=== PATIENT | male | born 1940 | race Caucasian/White ===

== ENCOUNTER 2018-08-13 12:23 | Emergency (ER) | payer MEDICARE, OTHER ==
[~2018-08-13] VITALS: Ht 188 cm; Wt 69.4 kg
[2018-08-13] MEDS ORDERED: LIDOCAINE JELLY 2% 10ML URO-JET TOP ONE (13:00)
[2018-08-13 13:35] LABS: COLOR,URINE YELLOW (YELLOW)
[2018-08-13 13:36] LABS: BILIRUBIN,URINE NEGATIVE (NEGATIVE); CLARITY,URINE SL CLOUDY (CLEAR); KETONES,URINE TRACE (NEGATIVE); LEUKOCYTE ESTERASE ,URINE NEGATIVE (NEGATIVE); NITRITE,URINE NEGATIVE (NEGATIVE); PROTEIN,URINE DIPSTICK 1+ (NEGATIVE); URINE UROBILINOGEN 0.2 mg/dL (0.2 - 1)
[2018-08-13 13:37] LABS: RBC,URINE 21-50 /HPF (0-5)
[2018-08-13 13:38] LABS: EPITHELIAL CELLS,URINE RARE /LPF
--- NOTE | 2018-08-13 14:35 | NUR ---
URINARY CATHETER BAG CHANGED TO LEG BAG. PATIENT INSTRUCTED ON CHANGING CATHETER BAGS. LARGE DRAINAGE BAG PROVIDED FOR NIGHT TIME DRAINAGE WHILE ASLEEP. PT AND SON VERBALIZED UNDERSTANDING.
[2018-08-13 14:45] VITALS: BP 119/83
== END 2018-08-13 14:48 | disposition home or self-care (01) ==
LOC: ER 12:23
DX: R33.9 Retention of urine, unspecified (principal); N40.1 Benign prostatic hyperplasia with lower urinary tract symptoms; I10 Essential (primary) hypertension
CPT/HCPCS: 51700; 51798; 81001; 87086; 99283

== ENCOUNTER 2018-09-05 03:03 | Emergency (ER) | payer MEDICARE, OTHER ==
[~2018-09-05] VITALS: Ht 188 cm; Wt 69.4 kg
[2018-09-05] MEDS ORDERED: LIDOCAINE JELLY 2% 10ML URO-JET TOP ONE (03:15)
[2018-09-05 04:25] LABS: BILIRUBIN,URINE NEGATIVE (NEGATIVE); CLARITY,URINE CLEAR (CLEAR); COLOR,URINE YELLOW (YELLOW); KETONES,URINE NEGATIVE (NEGATIVE); LEUKOCYTE ESTERASE ,URINE NEGATIVE (NEGATIVE); NITRITE,URINE NEGATIVE (NEGATIVE); PROTEIN,URINE DIPSTICK NEGATIVE (NEGATIVE); URINE UROBILINOGEN 0.2 mg/dL (0.2 - 1)
[2018-09-05 05:05] VITALS: BP 119/82
[2018-09-05 05:23] LABS: BACTERIA,URINE RARE /HPF; EPITHELIAL CELLS,URINE RARE /LPF; RBC,URINE >50 /HPF (0-5)
== END 2018-09-05 05:16 | disposition home or self-care (01) ==
LOC: ER 03:03
DX: R33.9 Retention of urine, unspecified (principal); N40.1 Benign prostatic hyperplasia with lower urinary tract symptoms; I10 Essential (primary) hypertension; J44.9 Chronic obstructive pulmonary disease, unspecified; N18.9 Chronic kidney disease, unspecified
CPT/HCPCS: 51700; 81001; 87086; 99282

== ENCOUNTER 2019-04-01 06:28 | Observation (INO) | payer MEDICARE, OTHER ==
[2019-03-25 10:49] LABS: BASOPHILS # (AUTO) 0.1 (0.0-0.1); BASOPHILS % 0.3 % (0.0-1.0); EOSINOPHILS # (AUTO) 0.1 (0.0-0.4); EOSINOPHILS % 0.5 % (0.0-6.0); HEMATOCRIT 41.7 % (38.2-49.6); HEMOGLOBIN 13.4 g/dL (14.0-18.0); LYMPHOCYTES # (AUTO) 15.7 (1.0-3.2); LYMPHOCYTES % 68.1 % (18.0-39.1); MEAN CORPUSCULAR HEMOGLOBIN 28.2 pg (28-32); MEAN CORPUSCULAR HGB CONC 32.1 g/dL (31-35); MEAN CORPUSCULAR VOLUME 87.6 fL (81-99); MONOCYTES # (AUTO) 1.1 (0.2-0.8); MONOCYTES % 4.7 % (4.4-11.3); NEUTROPHILS # (AUTO) 6.1 (2.1-6.9); NEUTROPHILS % 26.1 % (38.7-80.0); PLATELET COUNT 177 x10e3/uL (140-360); RED BLOOD COUNT 4.76 x10e6/uL (4.3-5.7); RED CELL DISTRIBUTION WIDTH 14.8 % (11.7-14.4)
[2019-03-25 11:06] LABS: ALANINE AMINOTRANSFERASE 7 IU/L (0-55); ALBUMIN 3.6 g/dL (3.5-5.0); ALBUMIN/GLOBULIN RATIO 1.6 (0.8-2.0); ALKALINE PHOSPHATASE 53 IU/L (40-150); ANION GAP 8.1 mmol/L (8-16); BLOOD UREA NITROGEN 21 mg/dL (7-26); BUN/CREATININE RATIO 22 (6-25); CALCIUM 9.3 mg/dL (8.4-10.2); CARBON DIOXIDE 30 mmol/L (22-29); CHLORIDE 96 mmol/L (98-107); CREATININE, SERUM 0.94 mg/dL (0.72-1.25); EST GLOMERULAR FILTRATION RATE > 60 ML/MIN (60-); GLUCOSE 90 mg/dL (74-118); POTASSIUM 4.1 mmol/L (3.5-5.1); SODIUM 130 mmol/L (136-145)
[2019-03-25 11:34] LABS: LYMPHOCYTES % (MANUAL) 64 % (19-48); MONOCYTES % (MANUAL) 6 % (3.4-9.0); NEUTROPHILS % (MANUAL) 21 % (40-74)
[2019-03-25 11:35] LABS: PLATELET ESTIMATE ADEQUATE; PLATELET MORPHOLOGY COMMENT NORMAL; RBC MORPHOLOGY COMMENT NORMAL; SMUDGE CELLS FEW
--- NOTE | 2019-03-25 12:55 | Diagnostic Imaging Report ---
Exam: PA and lateral chest radiograph Clinical history: Preoperative clearance Findings: There is mild cardiomegaly. There is no evidence of pulmonary consolidation, pleural effusion, or pneumothorax. Wedge deformities are noted in multiple thoracic vertebral bodies consistent with compression fractures, age indeterminant. Postoperative changes are also noted in one of the upper lumbar vertebral body consistent with prior vertebral augmentation. Impression: 1. Mild cardiomegaly. Signed by: Dr. Quintin Luna MD on 03/25/2019 12:52 PM
[~2019-04-01] VITALS: Ht 185.4 cm; Wt 67.4 kg
[~2019-04-01 06:28] MED LIST: AMLODIPINE BESYL5 MG PO; LEVOTHYROXINE50 MCG PO; LOSARTAN POTAS100 MG PO; METOPROLOL SUCC50 MG PO
[2019-04-01] MEDS ORDERED: CEFAZOLIN SOD 1 GM/NS 50ML 100 ML IV ONE (06:47)
[2019-04-01] MEDS ORDERED: B&O 60MG R/S 60 MG SUPP PR ONE (06:55)
--- OUTSIDE RECORDS SUMMARY | 2019-04-01 07:03 | XMS REPORT ---
Author Author [facility] Address Unknown Phone Unavailable Care Team Providers Care International Sales Manager Name Role Phone GATO MARTIN Unavailable Unavailable Problems This patient has no known problems. Allergies, Adverse Reactions, Alerts This patient has no known allergies or adverse reactions. Medications This patient has no known medications. Results Test Description Test Time Test Comments Text Results Atomic Results Result Comments CHEST 2 VIEWS 2019-03-25 12:51:00 [facility] [address] [address] Patient Name: ZENAIDA CROW MR #: [id number] : 1940 Age/Sex: 78/M Req #: [id number] [facility] Physician: Ordered by: GATO MARTIN MD Report #: [id number] Location: OR Room/Bed: Procedure: [id number] DX/CHEST 2 VIEWS Exam Date: Exam Time: REPORT STATUS: Signed Exam: PA and lateral chest radiograph Clinical history: Preoperative clearance Findings: There is mild cardiomegaly. There is no evidence of pulmonary consolidation, pleural effusion, or pneumothorax. Wedge deformities are noted in multiple thoracic vertebral bodies consistent with compression fractures, age indeterminant. Postoperative changes are also noted in one of the upper lumbar vertebral body consistent with prior vertebral augmentation. Impression: 1. Mild cardiomegaly. Signed by: Dr. Quintin Lion MD on 03/25/2019 12:52 PM Dictated By: CORNELIUS LION MD 125 Transcribed By: TYRONE on 03/25/191251 COPY TO: GATO MARTIN MD
[2019-04-01] MEDS ORDERED: HYDRALAZINE HCL 20 MG/ML VIAL ONE (09:54)
[2019-04-01] MEDS ORDERED: ONDANSETRON HCL INJ 2MG/ML 2ML 2 MG/ML VIAL ONE ×2 (11:06→18:31)
[2019-04-01 12:00] VITALS: BP_SYST 131; BP_SYST 133; BP_DIAS 60; BP_DIAS 91
[2019-04-01] MEDS ORDERED: METOPROLOL TARTRATE 25 MG TAB PO PRN (12:00)
--- NOTE | 2019-04-01 12:00 | NUR ---
PT RESTING IN BE AA0X3 PT STATES PAIN TO PENILE AREA IS TOLERABLE AT A 2/10 NOW PT IS ON IV FLUIDS TO THE RIGHT AC 20 G WITH LR RUNNING SITE IS CLEAN AND DRY ROB CATH IS DRAINING CLEAR YELLOW URINE WILL CONTINUE TO MONITOR PT CLOSELY SIDE RAILSX2 ,BED WHEELS LOCKED, CALL LIGHT IS WITHIN EASY REACH INSTRUCTED TO CALL FOR ASSISTANCE IF NEEDED
[2019-04-01] MEDS ORDERED: ONDANSETRON HCL INJ 2MG/ML 2ML 2 MG/ML VIAL IV PRN (12:15)
[2019-04-01] MEDS ORDERED: TRAMADOL HCL 50 MG TAB PO PRN ×2 (12:15)
[2019-04-01] MEDS ORDERED: B&O 60MG R/S 60 MG SUPP PR PRN (12:15)
[2019-04-01 12:32] VITALS: BP 131/91
[2019-04-01] MEDS: DEXTROSE 5%/0.9% SOD CHL 1,000 ML IV SCH ×2 (12:53→22:02)
[2019-04-01 15:59] VITALS: BP 112/73
[2019-04-01] MEDS ORDERED: PHENYLEPHRINE HCL 1% 10 MG/ML VIAL ONE (16:34)
[2019-04-01] MEDS: AMOXICILLIN/CLAVULANATE K 250 MG TAB PO SCH (17:17)
[2019-04-01] MEDS ORDERED: PROPOFOL IV EMULSION 10 MG/ML 20 ML VIAL ONE (18:31)
[2019-04-01] MEDS ORDERED: SEVOFLURANE INHAL SOLN 250 ML PEN BTL ONE (18:31)
[2019-04-01] MEDS ORDERED: GLYCOPYRROLATE INJ 1MG/ 5 ML SYR ONE (18:31)
[2019-04-01] MEDS ORDERED: DEXAMETHASONE SOD PHOS INJ 4 MG/ML VIAL ONE (18:31)
[2019-04-01] MEDS ORDERED: LIDOCAINE HCL 2% LOCAL INJ 5 ML SDV VIAL INJ ONE (18:31)
[2019-04-01] MEDS ORDERED: FENTANYL CITRATE/PF 100MCG/2 ML INJ ONE (18:55)
--- NOTE | 2019-04-01 20:10 | NUR ---
Zuniga care given.bed locked and in lowest position.phone and call light within reach.instructed to call for assistance as needed.
[2019-04-01 20:27] VITALS: BP 110/70
[2019-04-01 21:01] VITALS: BP 110/70
--- NOTE | 2019-04-01 23:23 | Operative Report ---
DATE OF PROCEDURE: 04/01/2019 SURGEON: Troy Long MD PREOPERATIVE DIAGNOSIS: Acute and chronic urinary retention. POSTOPERATIVE DIAGNOSIS: Acute and chronic urinary retention. OPERATION PERFORMED: Cystoscopy and transurethral resection of the prostate. Plasma button vaporization of the prostate. ANESTHESIOLOGIST: Staff. ANESTHESIA: General. FINDINGS: The patient has a very large prostate with 100% obstruction. The patient has a Zuniga catheter indwelling that has cut through the meatus. Severe trabeculation of the bladder with cellules and saccules is seen. Large intravesical component of the prostate. PROCEDURE IN DETAIL: With the patient under satisfactory general anesthesia, the patient was placed in the supine position on the operating table. Legs were placed on stirrups. Genitalia was then prepped with pHisoHex solution and draped in usual manner. A time-out was obtained, everybody agree with the procedure as planned. I checked the wrist band of the patient personally. At this point, the 22-Israeli cystourethroscope was passed per urethra into the bladder and inspection was performed. Findings are dictated above. The cystoscope was then removed from the bladder and replaced by the continuous flow resectoscope made by [employer]. Bipolar energy was used as well as the plasma button. The loop electrode was used first. First, the tissue removed was the intravesical component. Quite a bit of bleeding was noted from a large vascular blood vessels at the bladder neck. I would change from the loop to the button electrode to plasma evaporate and plasma fulgurate at this area. I switched back to the loop electrode and I continued to resect from the bladder neck to mid prostate. The left lobe was done first followed by the right lobe partially and then the middle lobe and the posterior lobe were then excised using the loop electrode. Again at this point, there was quite a bit of bleeding. Therefore, the plasma button electrode was used next to again coagulate and obtain hemostasis to improve visualization of the surgical field. Again, I switched back to the loop electrode and continue to resect the apical tissue. At this point, quite a bit of stones were noted to be coming off the prostate as well as what appeared to be prostatic fluid and thick secretions. I went back to the posterior lobe and resected some more tissue using the Combined Effort evacuator to remove the chips that had cut. At that point, I switched back to the plasma button and plasma evaporated the remaining tissue, evening out the tissue as well as obtaining hemostasis. Ellik evacuator was used again and at this point I checked inside the bladder. There was no tissue inside the bladder and both ureteral orifices were in normal position and easily seen as well as the bladder neck not bleeding. At this point, after checking, there was no tissue left in the prostatic fossa. Instruments were removed and a 22-Israeli Zuniga catheter was passed per urethra into the bladder and the balloon was inflated to 30 mL and irrigation was done with a Mira syringe until the return was clear. At this point, the Zuniga catheter was left indwelling to a bag. A 30 mg B and O suppository was placed in the rectum and the patient was taken to the recovery room in satisfactory condition. DISCHARGE INSTRUCTIONS: I kept the patient overnight in the hospital. If the next day the patient met discharge criteria, he was sent home on Keflex and Talwin NX for pain. The patient will then come back to the office on Friday to remove the Zuniga and give him a voiding trial. Total estimated tissue removed was between 45 and 50 g. I had previously discussed with the patient that I did not know if he would be able to urinate afterwards or not or whether he was going to have severe urgency and incontinence or not, but since the tube had already cut through the meatus by pressure, I felt that it was necessary to see if we could get rid of the catheter. The patient and I had discussed that before surgery and he understood it. I discussed also the same thing with the son and explained what to expect. The patient was discharged the next morning if he met discharge criteria. I had to ask for a consultation with Dr. Monteiro, who is a tongue and quarter stitcher that he has seen him. Preoperatively, the patient had some atrial fibrillation and Dr. Monteiro started him on medication postoperatively. If the patient needed to stay an extra night, a separate dictation will be made to explain the reason why the patient had to stay an extra night in the hospital. Thank you very much. MD SHAMIR BrumfieldG/MODL /[id number]
[2019-04-02 00:39] VITALS: BP 110/65
--- NOTE | 2019-04-02 01:18 | NUR ---
Patient is resting in the bed.mild blood colored urine draining.hall catheter irrigated manually.no blood clots occured.tolerated well.
[2019-04-02 04:11] VITALS: BP 104/56
[2019-04-02] MEDS: DEXTROSE 5%/0.9% SOD CHL 1,000 ML IV SCH (04:32)
[2019-04-02] MEDS ORDERED: LEVOTHYROXINE SODIUM 112 MCG TAB PO SCH (06:00)
[2019-04-02] MEDS ORDERED: LEVOTHYROXINE SODIUM 25 MCG TABLET PO SCH (06:00)
--- NOTE | 2019-04-02 06:00 | NUR ---
Manuel Garcia colored urine draining.no clots noted.stable condition.
[2019-04-02 06:25] LABS: BASOPHILS % 0.2 % (0.0-1.0); EOSINOPHILS # (AUTO) 0.1 (0.0-0.4); EOSINOPHILS % 0.3 % (0.0-6.0); HEMATOCRIT 37.4 % (38.2-49.6); LYMPHOCYTES # (AUTO) 10.8 (1.0-3.2); LYMPHOCYTES % 49.9 % (18.0-39.1); MEAN CORPUSCULAR HEMOGLOBIN 28.6 pg (28-32); MEAN CORPUSCULAR HGB CONC 32.1 g/dL (31-35); MEAN CORPUSCULAR VOLUME 89.3 fL (81-99); MONOCYTES # (AUTO) 2.4 (0.2-0.8); MONOCYTES % 11.3 % (4.4-11.3); NEUTROPHILS # (AUTO) 8.2 (2.1-6.9); NEUTROPHILS % 37.8 % (38.7-80.0); PLATELET COUNT 159 x10e3/uL (140-360); RED BLOOD COUNT 4.19 x10e6/uL (4.3-5.7); RED CELL DISTRIBUTION WIDTH 14.8 % (11.7-14.4)
[2019-04-02 06:46] LABS: INR 1.05; PROTHROMBIN TIME 14.2 seconds (11.9-14.5)
--- NOTE | 2019-04-02 06:50 | NUR ---
Bed side shift report given to the oncoming Rn.stable condition.
[2019-04-02 06:59] LABS: LYMPHOCYTES % (MANUAL) 48 % (19-48); MONOCYTES % (MANUAL) 12 % (3.4-9.0); NEUTROPHILS % (MANUAL) 40 % (40-74)
[2019-04-02 07:00] LABS: ALANINE AMINOTRANSFERASE 8 IU/L (0-55); ALBUMIN 2.9 g/dL (3.5-5.0); ALBUMIN/GLOBULIN RATIO 1.7 (0.8-2.0); ALKALINE PHOSPHATASE 46 IU/L (40-150); ANION GAP 11.1 mmol/L (8-16); BLOOD UREA NITROGEN 15 mg/dL (7-26); BUN/CREATININE RATIO 19 (6-25); CALCIUM 8.3 mg/dL (8.4-10.2); CARBON DIOXIDE 28 mmol/L (22-29); CHLORIDE 100 mmol/L (98-107); CREATININE, SERUM 0.78 mg/dL (0.72-1.25); EST GLOMERULAR FILTRATION RATE > 60 ML/MIN (60-); GLUCOSE 136 mg/dL (74-118); PLATELET ESTIMATE MODERATELY DECREASED; PLATELET MORPHOLOGY COMMENT FEW GIANT; POTASSIUM 4.1 mmol/L (3.5-5.1); RBC MORPHOLOGY COMMENT NORMAL; SODIUM 135 mmol/L (136-145)
--- NOTE | 2019-04-02 07:05 | NUR ---
Received patient lying in bed with eyes closed. Respiration even and unlabored without SOB. call light in reach.
[2019-04-02 07:11] LABS: THYROID STIMULATING HORMONE 0.661 uIU/mL (0.350-4.940)
[2019-04-02 08:04] VITALS: BP 93/63
[2019-04-02] MEDS: AMOXICILLIN/CLAVULANATE K 250 MG TAB PO SCH (08:31)
[2019-04-02] MEDS ORDERED: AMLODIPINE BESYLATE 5 MG TAB PO SCH (09:00)
[2019-04-02] MEDS ORDERED: LOSARTAN POTASSIUM 100 MG TAB PO SCH (09:00)
[2019-04-02] MEDS ORDERED: METOPROLOL SUCCINATE 50 MG TAB XL PO SCH (09:00)
[2019-04-02 09:18] VITALS: BP 93/63
[2019-04-02] MEDS ORDERED: METOPROLOL TARTRATE 25 MG TAB PO SCH (09:45)
--- NOTE | 2019-04-02 10:00 | NUR ---
Patient is to be discharged to home today. 20g PIV to right AC discontinue, catheter intact, no bleeding noted. Patient waiting for her son to pick him up.
[2019-04-02] MEDS ORDERED: KEFLEX250 MG PO (10:01)
[2019-04-02] MEDS ORDERED: PENTAZOCINE-NA1 EACH PO (10:04)
--- NOTE | 2019-04-02 10:25 | NUR ---
Patient is transported via wheelchair for discharge. Respiration even and unlabored without SOB.
--- NOTE | 2019-04-02 15:13 | Consultation ---
DATE OF CONSULTATION: 04/01/2019 Cardiac Consultation HISTORY OF PRESENT ILLNESS: This is a 78-year-old gentleman, who is very well known to our service. He is known to have chronic atrial fibrillation, hypertension, and hypothyroidism. He was seen and evaluated in our office on March 16, 2019, for cardiac clearance for his prostate surgery. The patient was given clearance. Regarding his atrial fibrillation, the patient never was on anticoagulation before. He is hypertensive. He had an echocardiogram, which showed preserved left ventricular systolic function. As I mentioned, the patient was cleared for surgery. He had successful TURP by Dr. Long. He is in recovery area. Cardiac consultation is obtained to manage his medication and his atrial fibrillation. The patient is currently feeling well. He is having just a little bit of throat discomfort and he is having discomfort from the Zuniga. He denied having any angina, any orthopnea, any paroxysmal nocturnal dyspnea, any syncope or presyncope. REVIEW OF SYSTEMS: To all systems will be summarized for clarity. GENERAL: No fever. No chills. HEENT: Remarkable for a little bit decreased hearing. PULMONARY: Moderate shortness of breath on exertion. CARDIAC: Chronic atrial fibrillation. No syncope or presyncope. Occasional palpitation. Easy fatigability. GI: No hematemesis. No melena. HEMATOLOGY: No easy bruising or bleeding. : Increased frequency of urination. MUSCULOSKELETAL: No back pain. No knee pain. Peripheral vascular, no claudication. SKIN: No rashes. NEUROLOGICAL: No WAX ROOM SUPERVISOR symptoms. No seizure. No headache. SOCIAL HISTORY: He is former smoker, quit in 2012. He is social alcohol drinker. He is retired. He is . HOME MEDICATIONS: Metoprolol succinate 50 mg a day, losartan 100 mg a day, amlodipine 5 mg a day, levothyroxine 137 mcg a day, and Myrbetriq 25 mg a day. ALLERGIES: CODEINE. PAST MEDICAL HISTORY: 1. Hypertension. 2. Hypothyroidism. 3. Prostate problem. 4. Lipoma. 5. Low back surgery. 6. Removal of cyst from the left knee. 7. Atrial fibrillation. FAMILY HISTORY: Mother of stroke at age 83. Father at age 85 after hip surgery. He lost one of his 2 brothers to lung disease. No sisters. One son with lupus. PHYSICAL EXAMINATION: VITAL SIGNS: Height 6 feet 1 inch, weight of 150 pounds, blood pressure currently 100/70, heart rate of 100, irregularly irregular of atrial fibrillation, and respiratory rate of 20. HEENT: Pupils are reactive. NECK: No elevation of jugular venous pulsation. CHEST: Decreased air entry in bases. HEART: Irregularly irregular rate of atrial fibrillation. PMI 5th left intercostal space. Normal first and second heart sound. ABDOMEN: Soft with good bowel sounds. Zuniga catheter in place. EXTREMITIES: No cyanosis. No clubbing. No edema. NEUROLOGIC: Awake, alert, and oriented. Able to move all extremities. LABORATORY DATA: As per chart. EKG showing atrial fibrillation. IMPRESSION AND PLAN: 1. Status post transurethral resection of the prostate. The patient tolerated surgery, hemodynamically relatively stable. Blood pressure on lower side. We will resume his home medication of blood pressure with precaution and with parameters since the patient had surgery. Most important is to give beta-ness to control the heart rate. 2. Regarding his hypertension, as described above. 3. Regarding his atrial fibrillation, beta-ness for the time being. The patient will be placed on anticoagulation after resolution of his surgery and stopping hematuria from the surgery. Case discussed and explained. We will follow the patient's progression with you and would like to thank you for your kind referral. MD JOE Vazquez/MODL /[id number]
== END 2019-04-02 10:25 | disposition home or self-care (01) ==
LOC: OR 06:28 → PACU V 09:44 → MED/SURG 12:08
PROVIDERS: ADMIT Urology; ATTEND Urology
DX: N40.1 Benign prostatic hyperplasia with lower urinary tract symptoms (principal); N13.8 Other obstructive and reflux uropathy; R33.8 Other retention of urine; I48.2 Chronic atrial fibrillation; I11.9 Hypertensive heart disease without heart failure; E03.9 Hypothyroidism, unspecified; Z82.3 Family history of stroke; Z82.5 Family history of asthma and other chronic lower respiratory diseases; Z84.89 Family history of other specified conditions; M48.54XA Collapsed vertebra, not elsewhere classified, thoracic region, initial encounter for fracture; Z86.010 Personal history of colon polyps; N32.89 Other specified disorders of bladder; Z88.5 Allergy status to narcotic agent
CPT/HCPCS: 36415 ×2; 52601; 71046; 80053 ×2; 84443; 85025 ×2; 85610; 87086; 87186; 88305; 93005; G0378 ×2; J0360; J0690; J1100; J2001; J2405; J2704; J3010; J3490; J7042 ×2; J2370

== ENCOUNTER 2019-06-23 11:17 | Inpatient (IN) | payer MEDICARE, OTHER ==
[~2019-06-23] VITALS: Ht 185.4 cm; Wt 65.5 kg
[~2019-06-23 11:17] MED LIST changes: +KEFLEX250 MG PO; +PENTAZOCINE-NA1 EACH PO
[2019-06-23] MEDS ORDERED: IPRATROPIUM BROMIDE 0.02% 2.5 ML NEB NEB STA (11:37)
[2019-06-23] MEDS ORDERED: METHYLPREDNISOLONE SOD SUCC 125 MG/2ML VIAL IV STA (11:37)
[2019-06-23] MEDS ORDERED: ALBUTEROL SULF 0.083% NEB SOLN 3 ML NEB NEB STA (11:37)
[2019-06-23] MEDS ORDERED: AZITHROMYCIN 500MG/NS 250 ML 250 ML IV ONE (12:00)
[2019-06-23] MEDS ORDERED: CEFTRIAXONE SOD 1 GM/NS 50 ML 50 ML IV ONE (12:00)
[2019-06-23 12:26] LABS: BASOPHILS # (AUTO) 0.1 (0.0-0.1); BASOPHILS % 0.2 % (0.0-1.0); EOSINOPHILS % 0.2 % (0.0-6.0); HEMATOCRIT 41.2 % (38.2-49.6); HEMOGLOBIN 13.3 g/dL (14.0-18.0); LYMPHOCYTES # (AUTO) 12.4 (1.0-3.2); LYMPHOCYTES % 59.9 % (18.0-39.1); MEAN CORPUSCULAR HEMOGLOBIN 27.5 pg (28-32); MEAN CORPUSCULAR HGB CONC 32.3 g/dL (31-35); MEAN CORPUSCULAR VOLUME 85.1 fL (81-99); MONOCYTES # (AUTO) 1.5 (0.2-0.8); MONOCYTES % 7.4 % (4.4-11.3); NEUTROPHILS # (AUTO) 6.6 (2.1-6.9); NEUTROPHILS % 31.8 % (38.7-80.0); PLATELET COUNT 211 x10e3/uL (140-360); RED BLOOD COUNT 4.84 x10e6/uL (4.3-5.7); RED CELL DISTRIBUTION WIDTH 15.3 % (11.7-14.4)
[2019-06-23 12:29] LABS: BILIRUBIN,URINE NEGATIVE (NEGATIVE); CLARITY,URINE CLEAR (CLEAR); COLOR,URINE YELLOW (YELLOW); KETONES,URINE NEGATIVE (NEGATIVE); LEUKOCYTE ESTERASE ,URINE TRACE (NEGATIVE); NITRITE,URINE NEGATIVE (NEGATIVE); PROTEIN,URINE DIPSTICK 1+ (NEGATIVE); URINE UROBILINOGEN 2 mg/dL (0.2 - 1)
[2019-06-23 12:39] LABS: INR 1.02; PROTHROMBIN TIME 13.9 seconds (11.9-14.5)
[2019-06-23 12:40] LABS: PARTIAL THROMBOPLASTIN TIME 29.2 seconds (23.8-35.5)
[2019-06-23 12:49] LABS: ALANINE AMINOTRANSFERASE 17 IU/L (0-55); ALBUMIN 3.6 g/dL (3.5-5.0); ALBUMIN/GLOBULIN RATIO 1.3 (0.8-2.0); ALKALINE PHOSPHATASE 60 IU/L (40-150); ANION GAP 12.1 mmol/L (8-16); BLOOD UREA NITROGEN 17 mg/dL (7-26); BUN/CREATININE RATIO 21 (6-25); CALCIUM 9.3 mg/dL (8.4-10.2); CARBON DIOXIDE 28 mmol/L (22-29); CHLORIDE 101 mmol/L (98-107); CREATINE KINASE 31 IU/L (30-200); CREATININE, SERUM 0.81 mg/dL (0.72-1.25); EST GLOMERULAR FILTRATION RATE > 60 ML/MIN (60-); GLUCOSE 121 mg/dL (74-118); POTASSIUM 4.1 mmol/L (3.5-5.1); SODIUM 137 mmol/L (136-145)
[2019-06-23 12:51] LABS: LYMPHOCYTES % (MANUAL) 46 % (19-48); MONOCYTES % (MANUAL) 10 % (3.4-9.0); NEUTROPHILS % (MANUAL) 36 % (40-74)
[2019-06-23 12:52] LABS: PLATELET ESTIMATE ADEQUATE; PLATELET MORPHOLOGY COMMENT NORMAL; RBC MORPHOLOGY COMMENT NORMAL
[2019-06-23 12:53] LABS: B-TYPE NATRIURETIC PEPTIDE2 322.1 pg/mL (0-100)
[2019-06-23 13:00] LABS: AMORPHOUS SEDIMENT,URINE FEW (FEW); BACTERIA,URINE MANY /HPF; EPITHELIAL CELLS,URINE MODERATE /LPF; MUCUS,URINE FEW (RARE); WBC,URINE (MAN) 21-50 /HPF (0-5)
--- NOTE | 2019-06-23 13:09 | Diagnostic Imaging Report ---
Exam: Chest one view Comparison: March 25, 2019 Clinical history: Shortness of breath, weakness Findings: There is persistent cardiomegaly. Increased bibasilar pulmonary opacities are noted which may represent atelectasis versus early consolidation. Minimal blunting of bilateral costophrenic sulci are also noted, this can represent small pleural effusions. There is no evidence of pneumothorax. The regional osseous structures are unchanged. Signed by: Dr. Quintin Luna MD on 06/23/2019 1:06 PM
[2019-06-23] MEDS: ALBUTEROL SULF 0.083% NEB SOLN 3 ML NEB NEB SCH ×3 (14:04→20:15)
[2019-06-23] MEDS ORDERED: SODIUM CHLORIDE FLUSH 10 ML SYR INJ PRN (14:45)
[2019-06-23] MEDS ORDERED: ASPIRIN 81 MG CHEW TAB PO ONE (14:45)
[2019-06-23] MEDS ORDERED: AZITHROMYCIN 500MG/SOD CHL 0.9% 250ML BAG IV SCH (14:45)
[2019-06-23 16:37] VITALS: BP 163/103
[2019-06-23 16:58] VITALS: BP 163/103
[2019-06-23 17:00] VITALS: BP 163/103
[2019-06-23] MEDS: ENOXAPARIN SOD INJ 40 MG/0.4 ML SYR SC SCH (17:00)
--- NOTE | 2019-06-23 17:00 | NUR ---
RECEIVED PATIENT FROM ER TO ROOM 291, HE IS IN STABLE CONDITION. ORIENTED TO ROOM AND POLICIES. ADMISSION HISTORY AND PHYSICAL ASSESSMENT DONE. CALL LIGHT WITHIN REACH. BED IN THE LOWEST POSITION.
--- NOTE | 2019-06-23 17:15 | NUR ---
HEEL PROTECTORS PROVIDED TO PATIENT.
[2019-06-23] MEDS ORDERED: LOSARTAN POTAS100 MG PO (17:16)
[2019-06-23] MEDS ORDERED: AMLODIPINE BESYL5 MG PO (17:16)
--- NOTE | 2019-06-23 19:33 | NUR ---
BEDSIDE SHIFT REPORT GIVEN TO ONCOMING NURSE. PATIENT IS RESTING IN BED. NO ACUTE DISTRESS NOTED. CALL LIGHT WITHIN REACH. BED IN THE LOWEST POSITION.
[2019-06-23 20:00] VITALS: BP 123/78
[2019-06-23] MEDS: IPRATROPIUM BROMIDE 0.02% 2.5 ML NEB NEB SCH (20:15)
[2019-06-23 20:17] LABS: CREATINE KINASE 21 IU/L (30-200)
--- NOTE | 2019-06-23 20:26 | NUR ---
RECEIVED PT IN BED AOX3 .RESPIRATIONS ARE EVEN AND UNLABORED ..CALL LIGHT WITH IN REACH .CONTINUE TO MONITOR
[2019-06-23] MEDS ORDERED: CEFTRIAXONE SOD 1 GRAM/0.9% SOD CHL 50ML BAG IV SCH (21:00)
[2019-06-24] VITALS (8 sets, daily range): BP systolic 107–154; BP diastolic 63–92
[2019-06-24] MEDS: IPRATROPIUM BROMIDE 0.02% 2.5 ML NEB NEB SCH ×4 (01:10→19:27)
[2019-06-24] MEDS: ALBUTEROL SULF 0.083% NEB SOLN 3 ML NEB NEB SCH ×6 (01:10→19:27)
[2019-06-24] MEDS ORDERED: SODIUM CHLORIDE 0.9% 250ML 250 ML ONE (01:16)
[2019-06-24 06:10] LABS: BASOPHILS % 0.2 % (0.0-1.0); HEMOGLOBIN 11.5 g/dL (14.0-18.0); LYMPHOCYTES # (AUTO) 6.7 (1.0-3.2); LYMPHOCYTES % 39.1 % (18.0-39.1); MEAN CORPUSCULAR HEMOGLOBIN 27.1 pg (28-32); MEAN CORPUSCULAR HGB CONC 31.1 g/dL (31-35); MEAN CORPUSCULAR VOLUME 87.1 fL (81-99); MONOCYTES # (AUTO) 1.7 (0.2-0.8); NEUTROPHILS # (AUTO) 8.5 (2.1-6.9); NEUTROPHILS % 49.9 % (38.7-80.0); PLATELET COUNT 197 x10e3/uL (140-360); RED BLOOD COUNT 4.25 x10e6/uL (4.3-5.7); RED CELL DISTRIBUTION WIDTH 15.3 % (11.7-14.4)
[2019-06-24 06:29] LABS: ANION GAP 11.2 mmol/L (8-16); BLOOD UREA NITROGEN 23 mg/dL (7-26); BUN/CREATININE RATIO 32 (6-25); CALCIUM 8.8 mg/dL (8.4-10.2); CARBON DIOXIDE 28 mmol/L (22-29); CHLORIDE 102 mmol/L (98-107); CREATININE, SERUM 0.71 mg/dL (0.72-1.25); EST GLOMERULAR FILTRATION RATE > 60 ML/MIN (60-); GLUCOSE 130 mg/dL (74-118); POTASSIUM 4.2 mmol/L (3.5-5.1); SODIUM 137 mmol/L (136-145)
--- NOTE | 2019-06-24 06:54 | NUR ---
BEDSIDE SHIFT REPORT RECEIVED FROM OFF GOING NURSE. PATIENT IS RESTING IN BED. NO ACUTE DISTRESS NOTED. CALL LIGHT WITHIN REACH. BED IN THE LOWEST POSITION.
[2019-06-24 07:03] LABS: CREATINE KINASE MB 2.5 ng/mL (0-5.0)
--- NOTE | 2019-06-24 07:04 | NUR ---
REPORT GIVEN TO THE ONCOMING NURSE
--- NOTE | 2019-06-24 07:04 | NUR ---
REPORT GIVEN TO THE ONCOMING NURSE
--- NOTE | 2019-06-24 08:49 | Diagnostic Imaging Report ---
EXAMINATION: CHEST SINGLE (PORTABLE) INDICATION: Pneumonia COMPARISON: Chest radiograph of 06/23/2019 FINDINGS: LINES/TUBES:None LUNGS:The lungs are moderately inflated. There is perihilar fullness and indistinctness of the pulmonary vasculature. Decreasing right basilar opacity. PLEURA:Small right pleural effusion. No pneumothorax. MEDIASTINUM:Cardiomediastinal silhouette is stably enlarged. BONES/SOFT TISSUES:No acute osseous injury. ABDOMEN:No free air under the diaphragm. IMPRESSION: Unchanged cardiomegaly and worsening pulmonary edema. Small right pleural effusion, increased from 06/23/2019. Increasing right basilar opacity more likely represents associated subsegmental atelectasis than superimposed aspiration or pneumonia. Signed by: Guillermo Scanlon MD on 06/24/2019 8:45 AM
[2019-06-24] MEDS: METOPROLOL SUCCINATE 50 MG TAB XL PO SCH (11:49)
[2019-06-24] MEDS: LOSARTAN POTASSIUM 100 MG TAB PO SCH (11:49)
[2019-06-24] MEDS: AMLODIPINE BESYLATE 5 MG TAB PO SCH (11:49)
[2019-06-24] MEDS: CEFTRIAXONE SOD 1 GM/NS 50 ML 50 ML IV SCH ×2 (11:49)
[2019-06-24] MEDS: AZITHROMYCIN 500MG/NS 250 ML 250 ML IV SCH (12:37)
[2019-06-24] MEDS: ENOXAPARIN SOD INJ 40 MG/0.4 ML SYR SC SCH (17:05)
--- NOTE | 2019-06-24 19:16 | NUR ---
BEDSIDE REPORT GIVEN TO ONCOMING NURSE. PATIENT IS RESTING IN BED. NO ACUTE DISTRESS NOTED. CALL LIGHT WITHIN REACH. BED IN THE LOWEST POSITION.
--- NOTE | 2019-06-24 19:51 | NUR ---
RECEIVED PT IN BED AOX3 .NO ACUTE DISTRESS NOTED .DENIES PAIN CALL LIGHT WITH IN REACH .CONTINUE TO MONITOR
[2019-06-25] VITALS (9 sets, daily range): BP systolic 113–140; BP diastolic 76–96
[2019-06-25] MEDS: ALBUTEROL SULF 0.083% NEB SOLN 3 ML NEB NEB SCH ×7 (00:02→23:05)
[2019-06-25] MEDS: IPRATROPIUM BROMIDE 0.02% 2.5 ML NEB NEB SCH ×4 (00:02→19:40)
[2019-06-25] MEDS: LEVOTHYROXINE SODIUM 112 MCG TAB PO SCH (05:54)
[2019-06-25] MEDS: LEVOTHYROXINE SODIUM 25 MCG TABLET PO SCH (05:54)
--- NOTE | 2019-06-25 06:36 | NUR ---
PT RESTED DURING THE NIGHT .DENIES PAIN .CALL LIGHT WITH IN REACH .CONTINUE TO MONITOR
--- NOTE | 2019-06-25 07:00 | NUR ---
RECEIVED PATIENT AWAKE RESTING IN BED NO S/S OF DISTRESS. BED LOW, WHEELS LOCKED, SIDE RAILS X2. CALL LIGHT IN REACH WILL CONTINUE TO MONITOR PATIENT.
--- NOTE | 2019-06-25 07:05 | NUR ---
REPORT GIVEN TO THE ON COMING NURSE
[2019-06-25] MEDS: LOSARTAN POTASSIUM 100 MG TAB PO SCH (09:22)
[2019-06-25] MEDS: METOPROLOL SUCCINATE 50 MG TAB XL PO SCH (09:22)
[2019-06-25] MEDS: AMLODIPINE BESYLATE 5 MG TAB PO SCH (09:22)
--- NOTE | 2019-06-25 11:15 | NUR ---
PATIENT A/O X3, EVEN RESPIRATIONS ON 3LNC. WHEEZING THROUGHOUT LUNG ALEJO. NO PAIN AT THIS TIME. PATIENT AMBULATES WITH STANDBY ASSISTANCE. LEFT FA 20 GAUGE IV SL. IV INTACT AND PATENT. CALL LIGHT IN REACH WILL CONTINUE TO MONITOR PATIENT.
[2019-06-25] MEDS: CEFTRIAXONE SOD 1 GM/NS 50 ML 50 ML IV SCH ×3 (11:46→23:28)
[2019-06-25] MEDS: AZITHROMYCIN 500MG/NS 250 ML 250 ML IV SCH (12:17)
--- NOTE | 2019-06-25 14:45 | NUR ---
Visit made by the Spiritual Care Department PRLandy BoyerSystem AdministratorLorenza chavarria. PV provided pastoral presence, hospitality, and supportive listening. Pt identified as Faith. Pastoral Visitor informed pt/family of the scope of Commercial Credit Officer Services and availability. ROCAEL Boyerlain Spiritual Care Department O: [phone]
[2019-06-25] MEDS: METHYLPREDNISOLONE SOD SUCC 40 MG/ML VIAL 1ML IV SCH ×2 (16:09→21:00)
[2019-06-25] MEDS: ENOXAPARIN SOD INJ 40 MG/0.4 ML SYR SC SCH (16:13)
--- NOTE | 2019-06-25 19:05 | NUR ---
received report from day nurse. patient is resting comfortably in bed. bed is in lowest position and call henry is within reach. will continue to monitor patient's plan of care.
[2019-06-26] VITALS (7 sets, daily range): BP systolic 117–135; BP diastolic 56–96
--- NOTE | 2019-06-26 01:17 | Consultation ---
DATE OF CONSULTATION: 06/25/2019 Pulmonary Medicine Consult PRIMARY CARE DOCTOR: Dr. Denney. REASON FOR REFERRAL: Shortness of breath. HISTORY OF PRESENT ILLNESS: Mr. Estrada is a pleasant 78-year-old gentleman with shortness of breath. The patient presented to [facility] on June 23, 2019. The patient had some cough and chills, onset 1 week prior. There is some mild phlegm as being reported. The patient had low-grade fevers, although he did not mention. In the emergency room, the patient had white blood count of 25,000. The patient had shortness of breath after speaking in 5 to 6 words. He was admitted to the hospital. Chest x-ray demonstrated a right lower lung patchiness at that time. Over the next day, the patient has developed a clear right-sided pleural effusion of moderate size. The patient has interim bilateral patchy opacities in the lungs. I am consulted. PAST MEDICAL HISTORY: Hypertension, hypothyroidism, prostate disorder, lower back surgery, atrial fibrillation. MEDICATIONS: Medication list reviewed per the chart record. No chronic respiratory medications. ALLERGIES: CODEINE. SOCIAL HISTORY: No alcohol. No drugs. The patient smoked from age 15 to 72, 1.5 packs per day. 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 He has had intermittent asbestos exposure . 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 He started in [place], but moved to [facility] later. His son lives with him. He is . FAMILY HISTORY: Noncontributory to this. REVIEW OF SYSTEMS: GENERAL: No weight changes. OPHTHALMOLOGIC: No double vision. ENT: No dry mouth. ENDOCRINE: No known thyroid disease. LUNGS: No asthma. IMMUNOLOGIC: No allergies. CARDIAC: No heart attack. GI: No constipation. : No blood in urine. DERMATOLOGIC: No rashes. NEUROLOGIC: No seizures. PHYSICAL EXAMINATION: VITAL SIGNS: Afebrile, vital signs noted and reviewed per the chart record. GENERAL: In no acute distress, alert and calm. HEENT: Normocephalic and atraumatic. NECK: Supple. Throat midline. LUNGS: Bilateral air entry is moderate only, few wheezes, few rhonchi. CARDIOVASCULAR: S1 and S2. No murmurs, rubs, or gallops. ABDOMEN: Soft and nontender. EXTREMITIES: No clubbing, no cyanosis, no edema. INTEGUMENT: No rash. No purpura. LABORATORY DATA: Labs include creatinine 0.7, bicarbonate 28. Today, white count 17,000. Urinalysis with 21 to 50 white cells, moderate epithelial cells, rbc's 11 to 20. IMPRESSION AND PLAN: 1. Community-acquired pneumonia. 2. Likely parapneumonic pleural effusion, increasing in size. 3. Chronic smoker, quit 6 years ago. 4. 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 5. History of atrial fibrillation. 6. Hypertension, hypothyroidism, recently reported, prostate problem. Check ultrasound of chest. Repeat chest x-ray in the morning to assess evolution of effusion. If we look forward to drainage of the effusion, then we will hold any anticoagulation as given for the atrial fibrillation. The patient should continue to expectorate. We will follow along closely. Appropriate deep venous thrombosis prophylaxis to be in effect. Thank you very much, Dr. Wood and Dr. Denney, for allowing me a chance to participate in care of Mr. Estrada. Please call for questions. MD TREVOR Bishop/BUBBA /[id number]
[2019-06-26] MEDS: IPRATROPIUM BROMIDE 0.02% 2.5 ML NEB NEB SCH ×6 (02:15→23:00)
[2019-06-26] MEDS: ALBUTEROL SULF 0.083% NEB SOLN 3 ML NEB NEB SCH ×6 (02:15→23:00)
[2019-06-26] MEDS: LEVOTHYROXINE SODIUM 25 MCG TABLET PO SCH (05:21)
[2019-06-26] MEDS: LEVOTHYROXINE SODIUM 112 MCG TAB PO SCH (05:21)
[2019-06-26] MEDS: METHYLPREDNISOLONE SOD SUCC 40 MG/ML VIAL 1ML IV SCH ×2 (05:21→14:18)
[2019-06-26 06:22] LABS: BASOPHILS % 0.1 % (0.0-1.0); HEMATOCRIT 38.3 % (38.2-49.6); HEMOGLOBIN 12.3 g/dL (14.0-18.0); LYMPHOCYTES # (AUTO) 7.3 (1.0-3.2); LYMPHOCYTES % 48.8 % (18.0-39.1); MEAN CORPUSCULAR HEMOGLOBIN 27.9 pg (28-32); MEAN CORPUSCULAR HGB CONC 32.1 g/dL (31-35); MEAN CORPUSCULAR VOLUME 86.8 fL (81-99); MONOCYTES # (AUTO) 1.1 (0.2-0.8); MONOCYTES % 7.6 % (4.4-11.3); NEUTROPHILS # (AUTO) 6.4 (2.1-6.9); NEUTROPHILS % 42.8 % (38.7-80.0); PLATELET COUNT 190 x10e3/uL (140-360); RED BLOOD COUNT 4.41 x10e6/uL (4.3-5.7); RED CELL DISTRIBUTION WIDTH 15.1 % (11.7-14.4)
--- NOTE | 2019-06-26 07:05 | NUR ---
report given to day nurse. patient is resting comfortably in bed. bed is in lowest position and call henry is within reach.
[2019-06-26] MEDS: AMLODIPINE BESYLATE 5 MG TAB PO SCH (09:01)
[2019-06-26] MEDS: METOPROLOL SUCCINATE 50 MG TAB XL PO SCH (09:01)
[2019-06-26] MEDS: LOSARTAN POTASSIUM 100 MG TAB PO SCH (09:02)
[2019-06-26 10:04] LABS: MONOCYTES % (MANUAL) 9 % (3.4-9.0); NEUTROPHILS % (MANUAL) 45 % (40-74)
[2019-06-26 10:05] LABS: LYMPHOCYTES % (MANUAL) 41 % (19-48); PLATELET ESTIMATE ADEQUATE
[2019-06-26 10:06] LABS: PLATELET MORPHOLOGY COMMENT NORMAL; RBC MORPHOLOGY COMMENT NORMAL
[2019-06-26] MEDS: CEFTRIAXONE SOD 1 GM/NS 50 ML 50 ML IV SCH (12:23)
[2019-06-26] MEDS: AZITHROMYCIN 500MG/NS 250 ML 250 ML IV SCH (12:55)
[2019-06-26] MEDS: CEFEPIME 1GM/NS 0.9% 50 ML 50 ML IV SCH (13:30)
--- NOTE | 2019-06-26 13:51 | Diagnostic Imaging Report ---
EXAM: Chest ultrasound INDICATION: Pleural effusion. COMPARISON: Chest x-ray TECHNIQUE: Transverse and longitudinal images were obtained of the chest. FINDINGS: Ultrasound images of the thorax demonstrates bilateral small pleural effusions. Incidental note is made of complex right renal cyst measures 2 cm. IMPRESSION: Bilateral small pleural effusions. Complex right renal cyst measures 2 cm. Signed by: Balwinder Rosa MD on 06/26/2019 12:09 PM
--- NOTE | 2019-06-26 13:52 | Diagnostic Imaging Report ---
EXAMINATION: CHEST SINGLE (PORTABLE) INDICATION: Pneumonia COMPARISON: 06/24/2019. FINDINGS: LINES/TUBES:None LUNGS:Biapical and right midlung opacities/consolidations are unchanged from prior exam. There is stable pulmonary vascular congestion indicating of pulmonary edema. PLEURA:Small right pleural effusion is unchanged. There is no pneumothorax. MEDIASTINUM:Cardiomediastinal silhouette is unchanged. BONES/SOFT TISSUES:No acute osseous injury. ABDOMEN:No free air under the diaphragm. IMPRESSION: Stable pulmonary edema. Stable small right pleural effusion. Stable biapical and right mid lung opacities/consolidations. Signed by: Balwinder Rosa MD on 06/26/2019 7:41 AM
[2019-06-26] MEDS: VANCOMYCIN 1GM/NS 250 ML 250 ML IV SCH (15:20)
[2019-06-26] MEDS: ENOXAPARIN SOD INJ 40 MG/0.4 ML SYR SC SCH (16:38)
--- NOTE | 2019-06-26 16:42 | NUR ---
Pulmonary Medicine DATE 06/26/2019 SUBJECTIVE: Breathing mildly better 97% saturation 4 L/min oxygen walked to restroom, ok CXR ~stable REVIEW OF SYSTEMS: no bleeding, no rash PHYSICAL EXAMINATION: VITAL SIGNS: vital signs noted and reviewed per the chart record. GENERAL: no acute distress, alert, calm. HEENT: Normocephalic and atraumatic. NECK: Supple. Throat midline. LUNGS: Bilateral air entry moderate, few wheezes, few rhonchi. CARDIOVASCULAR: S1 and S2. No murmurs, rubs, or gallops. ABDOMEN: Soft and nontender. EXTREMITIES: No clubbing, no cyanosis, no edema. INTEGUMENT: No rash. No purpura. LABORATORY DATA: k 4.2, cr 0.71, hco3 28. wbc 15, hct 38, plt 190 IMPRESSION AND PLAN: 1. Community-acquired pneumonia. 2. Likely parapneumonic pleural effusion 3. Chronic smoker, quit 6 years ago. 4. 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 5. History of atrial fibrillation. (off anticoagulation per patient) 6. Hypertension, hypothyroidism, prostate problem. Reviewed ultrasound of chest Order IR thoracentesis We will hold any anticoagulation prior to procedure Encourage expectoration DVT ppx Thank you very much, Dr. Wood and Dr. Denney, for allowing me a chance to participate in care of Mr. Estrada. Please call for questions.
--- NOTE | 2019-06-26 19:05 | NUR ---
received report from day shift nurse, patient is resting comfortably in bed. bed is in lowest position and call henry is within reach. will continue to monitor patient.
[2019-06-27] VITALS (8 sets, daily range): BP systolic 114–144; BP diastolic 78–92
[2019-06-27] MEDS: CEFEPIME 1GM/NS 0.9% 50 ML 50 ML IV SCH ×3 (00:06→23:17)
[2019-06-27] MEDS: VANCOMYCIN 1GM/NS 250 ML 250 ML IV SCH ×2 (00:38→14:21)
[2019-06-27] MEDS: IPRATROPIUM BROMIDE 0.02% 2.5 ML NEB NEB SCH ×6 (03:00→23:20)
[2019-06-27] MEDS: ALBUTEROL SULF 0.083% NEB SOLN 3 ML NEB NEB SCH ×6 (03:00→23:20)
[2019-06-27] MEDS: LEVOTHYROXINE SODIUM 25 MCG TABLET PO SCH (05:15)
[2019-06-27] MEDS: LEVOTHYROXINE SODIUM 112 MCG TAB PO SCH (05:15)
--- NOTE | 2019-06-27 06:52 | NUR ---
report given to day nurse. patient is resting comfortably in bed. bed is in lowest position and call henry is within reach.
[2019-06-27 07:11] LABS: BASOPHILS % 0.1 % (0.0-1.0); EOSINOPHILS % 0.1 % (0.0-6.0); HEMATOCRIT 37.7 % (38.2-49.6); LYMPHOCYTES # (AUTO) 7.9 (1.0-3.2); MEAN CORPUSCULAR HEMOGLOBIN 27.6 pg (28-32); MEAN CORPUSCULAR HGB CONC 31.8 g/dL (31-35); MEAN CORPUSCULAR VOLUME 86.9 fL (81-99); MONOCYTES # (AUTO) 1.2 (0.2-0.8); MONOCYTES % 6.4 % (4.4-11.3); NEUTROPHILS # (AUTO) 8.8 (2.1-6.9); NEUTROPHILS % 48.7 % (38.7-80.0); PLATELET COUNT 187 x10e3/uL (140-360); RED BLOOD COUNT 4.34 x10e6/uL (4.3-5.7); RED CELL DISTRIBUTION WIDTH 14.9 % (11.7-14.4)
[2019-06-27 07:43] LABS: ALANINE AMINOTRANSFERASE 13 IU/L (0-55); ALBUMIN 3.1 g/dL (3.5-5.0); ALBUMIN/GLOBULIN RATIO 1.3 (0.8-2.0); ALKALINE PHOSPHATASE 49 IU/L (40-150); BLOOD UREA NITROGEN 24 mg/dL (7-26); BUN/CREATININE RATIO 32 (6-25); CALCIUM 8.9 mg/dL (8.4-10.2); CARBON DIOXIDE 32 mmol/L (22-29); CHLORIDE 98 mmol/L (98-107); CREATININE, SERUM 0.76 mg/dL (0.72-1.25); EST GLOMERULAR FILTRATION RATE > 60 ML/MIN (60-); GLUCOSE 110 mg/dL (74-118); SODIUM 136 mmol/L (136-145)
[2019-06-27] MEDS ORDERED: PREDNISONE 20 MG TAB PO SCH (09:00)
[2019-06-27] MEDS: AMLODIPINE BESYLATE 5 MG TAB PO SCH (09:04)
[2019-06-27] MEDS: LOSARTAN POTASSIUM 100 MG TAB PO SCH (09:04)
[2019-06-27] MEDS: METOPROLOL SUCCINATE 50 MG TAB XL PO SCH (09:05)
--- NOTE | 2019-06-27 14:10 | NUR ---
Visit made by the Spiritual Care Department Pastoral Visitor, Justin Roberts. PV provided pastoral presence, hospitality, and supportive listening. Pastoral Visitor informed pt/family of the scope of Tax Processor Services and availability. ROCAEL COOPER Spot [employer] Spiritual Care Department O: [phone] Pager: [phone] ([phone] calling from)
--- NOTE | 2019-06-27 15:30 | NUR ---
Dr. Alvarenga was here to see pt and spoke with pt regarding thoracentesis. Pt signed consent for thoracentesis.
--- NOTE | 2019-06-27 18:56 | NUR ---
received repot from day nurse. patient is resting comfortably in bed. bed is in lowest position and call henry is within reach. will continue to monitor patient.
[2019-06-28] VITALS (8 sets, daily range): BP systolic 114–144; BP diastolic 73–95
--- NOTE | 2019-06-28 00:20 | NUR ---
received vanco trough of 13.3 from laboratory. notified. states continue current plan of treatment.
[2019-06-28] MEDS: VANCOMYCIN 1GM/NS 250 ML 250 ML IV SCH ×2 (01:16→14:00)
--- NOTE | 2019-06-28 02:11 | NUR ---
Pulmonary Medicine DATE 06/27/2019 SUBJECTIVE: Breathing mildly better again 99% saturation 4 L/min oxygen by NC ate well walked to restroom independently REVIEW OF SYSTEMS: no bleeding, no rash PHYSICAL EXAMINATION: VITAL SIGNS: vital signs noted and reviewed per the chart record. GENERAL: no acute distress, alert, calm. HEENT: Normocephalic and atraumatic. NECK: Supple. Throat midline. LUNGS: Bilateral air entry moderate/decreased, few rhonchi. CARDIOVASCULAR: S1 and S2. No murmurs, rubs, or gallops. ABDOMEN: Soft and nontender. EXTREMITIES: No clubbing, no cyanosis, no edema. INTEGUMENT: No rash. No purpura. LABORATORY DATA: k 5.0, cr .76. 18 wbc, hct 38 IMPRESSION AND PLAN: 1. Community-acquired pneumonia. 2. Likely parapneumonic pleural effusion 3. Chronic smoker, quit 6 years ago. 4. 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 5. History of atrial fibrillation. (off anticoagulation per patient) 6. Hypertension, hypothyroidism, prostate problem. Ordered IR thoracentesis hold anticoagulation prior to procedure Encourage expectoration abx continue DVT ppx Thank you very much, Dr. Wood and Dr. Denney, for allowing me a chance to participate in care of Mr. Estrada. Please call for questions.
[2019-06-28] MEDS: IPRATROPIUM BROMIDE 0.02% 2.5 ML NEB NEB SCH ×6 (03:25→23:30)
[2019-06-28] MEDS: ALBUTEROL SULF 0.083% NEB SOLN 3 ML NEB NEB SCH ×6 (03:25→23:30)
[2019-06-28] MEDS: LEVOTHYROXINE SODIUM 25 MCG TABLET PO SCH (05:11)
[2019-06-28] MEDS: LEVOTHYROXINE SODIUM 112 MCG TAB PO SCH (05:11)
[2019-06-28 06:18] LABS: BASOPHILS % 0.1 % (0.0-1.0); EOSINOPHILS % 0.2 % (0.0-6.0); HEMATOCRIT 39.4 % (38.2-49.6); HEMOGLOBIN 12.3 g/dL (14.0-18.0); LYMPHOCYTES # (AUTO) 13.1 (1.0-3.2); LYMPHOCYTES % 63.7 % (18.0-39.1); MEAN CORPUSCULAR HEMOGLOBIN 27.3 pg (28-32); MEAN CORPUSCULAR HGB CONC 31.2 g/dL (31-35); MEAN CORPUSCULAR VOLUME 87.6 fL (81-99); MONOCYTES % 4.8 % (4.4-11.3); NEUTROPHILS # (AUTO) 6.3 (2.1-6.9); NEUTROPHILS % 30.8 % (38.7-80.0); PLATELET COUNT 170 x10e3/uL (140-360)
[2019-06-28 07:09] LABS: BLOOD UREA NITROGEN 18 mg/dL (7-26); BUN/CREATININE RATIO 26 (6-25); CALCIUM 8.7 mg/dL (8.4-10.2); CARBON DIOXIDE 32 mmol/L (22-29); CHLORIDE 98 mmol/L (98-107); EST GLOMERULAR FILTRATION RATE > 60 ML/MIN (60-); GLUCOSE 85 mg/dL (74-118); SODIUM 136 mmol/L (136-145)
--- NOTE | 2019-06-28 07:25 | NUR ---
PATIENT ASSISTED TO THE RESTROOM AND BACK TO BED, NO DISTRESS NOTED. O2 IN PLACE VIA N/C. BED IN LOWER POSITION, CALL LIGHT AT REACH.
--- NOTE | 2019-06-28 07:25 | NUR ---
report given to day nurse. patient is resting in bed. bed is in lowest position and call light is within reach.
[2019-06-28] MEDS ORDERED: PREDNISONE 20 MG TAB PO SCH (09:00)
[2019-06-28] MEDS: AMLODIPINE BESYLATE 5 MG TAB PO SCH (09:21)
[2019-06-28] MEDS: METOPROLOL SUCCINATE 50 MG TAB XL PO SCH (09:21)
[2019-06-28] MEDS: LOSARTAN POTASSIUM 100 MG TAB PO SCH (09:21)
--- NOTE | 2019-06-28 11:46 | NUR ---
IN TO DO A BEDSIDE THORACENTESIS. STATED THAT HE IS DOING THE PROCEDURE BECAUSE THE PLEURAL EFFUSION IS VERY SMALL AND THE PATIENT WILL NOT BENEFIT FROM IT.
--- NOTE | 2019-06-28 12:00 | Diagnostic Imaging Report ---
Bilateral chest ultrasound History: Pleural effusion Technique/findings: Limited bilateral chest ultrasound was performed to evaluate for pleural effusion. This demonstrated trace bilateral pleural effusions in close proximity to lung. IMPRESSION: Trace bilateral pleural effusions in close proximity to lung. These are insufficient to safely perform thoracentesis and thoracentesis would likely have little to no benefit for the patient's respiratory symptoms. Signed by: Guillermo Scanlon MD on 06/28/2019 11:57 AM
[2019-06-28] MEDS: CEFEPIME 1GM/NS 0.9% 50 ML 50 ML IV SCH (13:15)
--- NOTE | 2019-06-28 16:07 | NUR ---
PATIENT ASSISTED WITH SHOWER AND BACK TO BED. SITTING UP IN BED TALKING TO FAMILY MEMBER VISITING. CALL LIGHT AT REACH.
--- NOTE | 2019-06-28 16:11 | NUR ---
SPOKE WITH MD REGARDING THORACENTESIS CANCELLATION. HE STATED THAT THE PATIENT IS DOING BETTER, CONTINUE SAME TREATMENT.
--- NOTE | 2019-06-28 17:30 | NUR ---
Nutrition Screen Note RD Recommendation for Physician: -Continue current diet as ordered Plan of Care: RD following, monitoring for tolerance and adequacy Nutrition reason for involvement: Length of stay Primary Diagnose(s): COPD exacerbation, pneumonia PMH: HTN, hypothyroid, prostate disorder, lower back surgery, afib Ht: 73 in Wt:144 lb BMI: 19.1 kg/m2 IBW:[address] Assessment: (06/28/19) Chart reviewed. Labs and meds reviewed. Pt is a 78 year old male admitted with COPD exacerbation and pneumonia. Pt stated his appetite has been good and eating >50% of meals. Pt is unsure if he has lost wt and mentioned he usually weighs 152 lbs. However, pt currently has a wt of 144 lbs in chart. On previous admission, pt had weights ranging from 137-148 lbs in March 2019. No N/V/D/C reported and no chewing/swallowing issues. Will continue to monitor. Current Diet: cardiac diet Malnutrition Evaluation (06/28/19) The patient does not meet criteria for a specified degree of malnutrition at this time. Will re-evaluate at follow-up as appropriate. Diet Education Needs Assessment: Pt was not interested in diet education at time of visit. Nutrition Care Level: low Signed: Antonia Nieves, RD, LD
--- NOTE | 2019-06-28 18:55 | NUR ---
REPORT GIVEN TO ON COMING NURSE. PATIENT IN BED RESTING WITH NO S/S OF DISTRESS.
--- NOTE | 2019-06-28 19:15 | NUR ---
patient received awake, alert, lying quietly in bed. respirations even and unlabored. 2/3l/nc in use. pm assessment complete. patient instructed to call for assistance when needed.
--- NOTE | 2019-06-28 23:44 | NUR ---
Pulmonary Medicine DATE 06/28/2019 SUBJECTIVE: Breathing stable 3 L/min by NC went for thoracentesis, but too little fluid found walked independently REVIEW OF SYSTEMS: no bleeding, no rash PHYSICAL EXAMINATION: VITAL SIGNS: vital signs noted and reviewed per the chart record. GENERAL: no acute distress, alert, calm. HEENT: Normocephalic and atraumatic. NECK: Supple. Throat midline. LUNGS: Bilateral air entry moderate/decreased, few rhonchi. CARDIOVASCULAR: S1 and S2. No murmurs, rubs, or gallops. ABDOMEN: Soft and nontender. EXTREMITIES: No clubbing, no cyanosis, no edema. INTEGUMENT: No rash. No purpura. LABORATORY DATA: k 4.0, cr .70. wbc 21, hct 39, plt 170. IMPRESSION AND PLAN: 1. Community-acquired pneumonia. 2. Likely parapneumonic pleural effusion 3. Chronic smoker, quit 6 years ago. 4. 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 5. History of atrial fibrillation. (off anticoagulation per patient) 6. Hypertension, hypothyroidism, prostate problem. IR thoracentesis deferred today hold anticoagulation prior to procedure Will update radiology, consider next step Encourage expectoration abx continue DVT ppx Thank you very much, Dr. Wood and Dr. Denney, for allowing me a chance to participate in care of Mr. Estrada. Please call for questions.
[2019-06-29] VITALS (7 sets, daily range): BP systolic 106–144; BP diastolic 60–99
--- NOTE | 2019-06-29 | NUR ---
patient ambulates to bathroom without difficulty. no c/o pain noted at this time.
[2019-06-29] MEDS: CEFEPIME 1GM/NS 0.9% 50 ML 50 ML IV SCH ×2 (01:15→13:57)
[2019-06-29] MEDS: VANCOMYCIN 1GM/NS 250 ML 250 ML IV SCH ×2 (02:00→14:26)
--- NOTE | 2019-06-29 02:00 | NUR ---
vanco trough at 0130 is 12.5 0200 dose of vancomycin 1 gm iv given per orders at this time.
[2019-06-29] MEDS: IPRATROPIUM BROMIDE 0.02% 2.5 ML NEB NEB SCH ×6 (03:00→23:50)
[2019-06-29] MEDS: ALBUTEROL SULF 0.083% NEB SOLN 3 ML NEB NEB SCH ×6 (03:00→23:50)
[2019-06-29] MEDS: LEVOTHYROXINE SODIUM 25 MCG TABLET PO SCH (05:45)
[2019-06-29] MEDS: LEVOTHYROXINE SODIUM 112 MCG TAB PO SCH (05:45)
--- NOTE | 2019-06-29 06:02 | Diagnostic Imaging Report ---
EXAMINATION: CHEST 2 VIEWS INDICATION: Effusion. COMPARISON: Chest radiograph 06/26/2019. FINDINGS: LINES/TUBES:None LUNGS: There is increasing aeration in the right mid and lower lungs with decreasing patchy opacity. Unchanged opacities in the bilateral lung apices. Mild perihilar and interstitial opacities. PLEURA:Decreasing trace right pleural effusion. No evidence of pneumothorax. MEDIASTINUM:Cardiomediastinal silhouette is unchanged. BONES/SOFT TISSUES:No acute osseous abnormality. ABDOMEN:No free air under the diaphragm. IMPRESSION: Increasing aeration with decreasing patchy opacity in the right mid and lower lung, likely atelectasis. Stable biapical opacities, which may reflect prominent costomanubrial junction or consolidation, however underlying mass is not excluded. Recommend follow-up imaging or chest CT. Stable mild pulmonary interstitial edema. Signed by: Dr. Herb Rudolph MD on 06/29/2019 5:58 AM
[2019-06-29 06:14] LABS: BASOPHILS # (AUTO) 0.1 (0.0-0.1); BASOPHILS % 0.3 % (0.0-1.0); EOSINOPHILS # (AUTO) 0.1 (0.0-0.4); EOSINOPHILS % 0.5 % (0.0-6.0); HEMATOCRIT 40.2 % (38.2-49.6); HEMOGLOBIN 12.4 g/dL (14.0-18.0); LYMPHOCYTES # (AUTO) 18.8 (1.0-3.2); LYMPHOCYTES % 71.3 % (18.0-39.1); MEAN CORPUSCULAR HEMOGLOBIN 27.3 pg (28-32); MEAN CORPUSCULAR HGB CONC 30.8 g/dL (31-35); MEAN CORPUSCULAR VOLUME 88.5 fL (81-99); MONOCYTES % 3.7 % (4.4-11.3); NEUTROPHILS # (AUTO) 6.3 (2.1-6.9); NEUTROPHILS % 23.8 % (38.7-80.0); PLATELET COUNT 195 x10e3/uL (140-360); RED BLOOD COUNT 4.54 x10e6/uL (4.3-5.7); RED CELL DISTRIBUTION WIDTH 14.9 % (11.7-14.4)
--- NOTE | 2019-06-29 07:15 | NUR ---
PATIENT SITTING UP IN BED WATCHING TV, NO COMPLAIN VOICED. BED IN LOWER POSITION, CALL LIGHT AT REACH.
[2019-06-29 07:25] LABS: HYPOCHROMASIA MODERATE; PLATELET ESTIMATE MODERATELY DECREASED; PLATELET MORPHOLOGY COMMENT FEW LARGE
[2019-06-29 07:26] LABS: RBC MORPHOLOGY COMMENT ABNORMAL
[2019-06-29] MEDS ORDERED: PREDNISONE 5 MG TAB PO SCH (09:00)
[2019-06-29] MEDS: LOSARTAN POTASSIUM 100 MG TAB PO SCH (09:39)
[2019-06-29] MEDS: AMLODIPINE BESYLATE 5 MG TAB PO SCH (09:39)
[2019-06-29] MEDS: METOPROLOL SUCCINATE 50 MG TAB XL PO SCH (09:40)
--- NOTE | 2019-06-29 11:21 | NUR ---
WALKING ROUND MAKE, URINAL EMPTIED AND CLEANSED. PATIENT IN BED RESTING WITH CALL LIGHT AT REACH.
--- NOTE | 2019-06-29 14:40 | NUR ---
PATIENT OFF UNIT TO RADIOLOGY.
--- NOTE | 2019-06-29 15:15 | NUR ---
PATIENT BACK TO UNIT FROM RADIOLOGY, IN BED WATCHING TV, CALL LIGHT AT REACH.
--- NOTE | 2019-06-29 16:01 | Diagnostic Imaging Report ---
EXAMINATION: CT scan of the chest with contrast. TECHNIQUE: Spiral CT images of the chest were performed from the lung apices to the level of the adrenal glands after the intravenous administration of 100 cc Isovue-370. Coronal and sagittal reformatted images were obtained. COMPARISON: Chest radiograph 06/29/2019 CLINICAL HISTORY:Pneumonia, increasing leukocytosis DISCUSSION: LINES/TUBES: None. LUNGS AND AIRWAYS: Advanced upper lobe predominant centrilobular and paraseptal emphysematous changes. No upper lobe consolidations. Biapical opacities described on the comparison chest radiograph are shown to represent prominent sternocostal junctions. Juxtapleural reticular opacities with early honeycombing in the lung bases. Superimposed groundglass opacities likely passive atelectasis in the presence of trace bilateral pleural effusions, right larger the left. Calcified granuloma in the lingula. No additional mass lesion. Mucoid debris within the trachea and right mainstem bronchus. Lobar and segmental bronchi are otherwise patent, though there is mucoid impaction in several right upper lobe segmental bronchi for example on series 3 image 42. Filling defects and left lower lobe signal bronchi are also noted on series 3 image 77. PLEURA: Trace bilateral pleural effusions right larger than left. HEART AND MEDIASTINUM: Visualized thyroid gland is atrophic with coarse calcifications. Multiple calcified mediastinal and hilar lymph nodes. 1.3 cm short axis right lower paratracheal mediastinal lymph node. No axillary lymphadenopathy. Ectatic ascending thoracic aorta (4.1 cm). Great vessel origins are normal in caliber and configuration, each with atherosclerotic calcification. Pulmonary outflow tract is of normal caliber. Central pulmonary arteries are patent. Atherosclerotic calcifications of the left main, left anterior descending, and left circumflex coronary arteries. Moderate cardiomegaly with disproportionate right chamber enlargement. H LYMPH NODES: As above. ABDOMEN: Simple cyst in hepatic segment 7. Simple cysts and subcentimeter hypoattenuating lesions, too small to further characterize in the bilateral kidneys. Spleen, visualized pancreas, and adrenal glands are unremarkable. BONES AND SOFT TISSUES: Diffuse osteopenia. Moderate anterior compression deformity of T12. Severe anterior compression deformities of T7, T8, and T9, as well as L2 and L3. Status post L2 vertebroplasty. No focal soft tissue abnormalities. IMPRESSION: Advanced upper lobe predominant emphysematous changes with multifocal mucoid impaction of segmental bronchi as above. Bibasilar fibrosis and honeycombing (UIP pattern), which may be idiopathic, age-related, or a consequence of underlying collagen vascular disease or drug toxicity. Probable reactive hilar and mediastinal lymphadenopathy. Above findings result in right-sided cardiac chamber dilatation and borderline enlargement of the pulmonary outflow tract, suggestive of pulmonary hypertension. No consolidative pneumonia. Trace bilateral pleural effusions. Atherosclerotic vascular disease. Mild ectasia of the ascending thoracic aorta (4.1 cm) Multiple age indeterminant compression fractures of the lower thoracic and upper lumbar spine. Correlate for point tenderness. Signed by: Dr. Jonatan Pastrana M.D. on 06/29/2019 3:57 PM
--- NOTE | 2019-06-29 19:30 | NUR ---
patient received awake, alert, lying quietly in bed. vss. no c/o pain noted. respirations even and unlabored. 3l/nc in use. pm assessment complete. patient instructed to call for assistance when needed.
[2019-06-29] MEDS ORDERED: SODIUM CHLORIDE 0.9% 50ML 50 ML ONE (20:26)
[2019-06-29] MEDS ORDERED: IOPAMIDOL 370 MG/ML 200 ML INFUS..BTL INJ ONE (20:26)
--- NOTE | 2019-06-29 21:39 | NUR ---
Pulmonary Medicine DATE 06/29/2019 SUBJECTIVE: Breathing stable 3 L/min by NC patient still has very high WBC eats ok REVIEW OF SYSTEMS: no bleeding, no rash PHYSICAL EXAMINATION: VITAL SIGNS: vital signs noted and reviewed per the chart record. GENERAL: no acute distress, alert, calm. HEENT: Normocephalic and atraumatic. NECK: Supple. Throat midline. LUNGS: Bilateral air entry moderate/decreased, few rhonchi. CARDIOVASCULAR: S1 and S2. No murmurs, rubs, or gallops. ABDOMEN: Soft and nontender. EXTREMITIES: No clubbing, no cyanosis, no edema. INTEGUMENT: No rash. No purpura. LABORATORY DATA: wbc 26 k, hct 40, plt 195 IMPRESSION AND PLAN: 1. Community-acquired pneumonia. 2. Parapneumonic pleural effusion 3. Chronic smoker, quit 6 years ago. 4. 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 5. History of atrial fibrillation. (off anticoagulation per patient) 6. Hypertension, hypothyroidism, prostate problem. check CT chest non-contrast IV abx for pneumonia await sputum hold anticoagulation prior to any procedure Encourage expectoration abx continue DVT ppx Thank you very much, Dr. Wood and Dr. Denney, for allowing me a chance to participate in care of Mr. Estrada. Please call for questions.
[2019-06-30] VITALS (8 sets, daily range): BP systolic 96–124; BP diastolic 73–87
[2019-06-30] MEDS: AZITHROMYCIN 500MG/NS 250 ML 250 ML IV SCH ×2 (00:48→21:01)
[2019-06-30] MEDS ORDERED: SODIUM CHLORIDE 0.9% 250ML 250 ML ONE (00:50)
[2019-06-30] MEDS: CEFEPIME 1GM/NS 0.9% 50 ML 50 ML IV SCH (01:15)
[2019-06-30] MEDS: VANCOMYCIN 1GM/NS 250 ML 250 ML IV SCH ×2 (02:00→15:00)
[2019-06-30] MEDS: IPRATROPIUM BROMIDE 0.02% 2.5 ML NEB NEB SCH ×6 (03:10→23:00)
[2019-06-30] MEDS: ALBUTEROL SULF 0.083% NEB SOLN 3 ML NEB NEB SCH ×6 (03:10→23:00)
[2019-06-30] MEDS: LEVOTHYROXINE SODIUM 112 MCG TAB PO SCH (05:05)
[2019-06-30] MEDS: LEVOTHYROXINE SODIUM 25 MCG TABLET PO SCH (05:05)
[2019-06-30 05:49] LABS: BASOPHILS # (AUTO) 0.1 (0.0-0.1); BASOPHILS % 0.2 % (0.0-1.0); EOSINOPHILS # (AUTO) 0.2 (0.0-0.4); EOSINOPHILS % 0.6 % (0.0-6.0); HEMATOCRIT 38.8 % (38.2-49.6); LYMPHOCYTES # (AUTO) 22.3 (1.0-3.2); LYMPHOCYTES % 75.6 % (18.0-39.1); MEAN CORPUSCULAR HEMOGLOBIN 27.2 pg (28-32); MEAN CORPUSCULAR HGB CONC 30.9 g/dL (31-35); MONOCYTES # (AUTO) 1.2 (0.2-0.8); MONOCYTES % 3.9 % (4.4-11.3); NEUTROPHILS # (AUTO) 5.7 (2.1-6.9); NEUTROPHILS % 19.4 % (38.7-80.0); PLATELET COUNT 183 x10e3/uL (140-360); RED BLOOD COUNT 4.41 x10e6/uL (4.3-5.7)
--- NOTE | 2019-06-30 07:20 | NUR ---
PT UP IN BED SLEEPING,NO DISTRESS NOTED.O2 2L NC IN PLACE.
[2019-06-30 07:22] LABS: EOSINOPHILS % (MANUAL) 1 % (0-7); LYMPHOCYTES % (MANUAL) 67 % (19-48); MONOCYTES % (MANUAL) 6 % (3.4-9.0); NEUTROPHILS % (MANUAL) 22 % (40-74)
[2019-06-30 07:23] LABS: ANISOCYTOSIS SLIGHT; MICROCYTOSIS SLIGHT; OVALOCYTES FEW; POIKILOCYTOSIS SLIGHT; TEAR DROP CELLS FEW
[2019-06-30 07:24] LABS: RBC MORPHOLOGY COMMENT ABNORMAL
[2019-06-30 07:25] LABS: PLATELET ESTIMATE ADEQUATE; PLATELET MORPHOLOGY COMMENT FEW GIANT; SMUDGE CELLS FEW
[2019-06-30] MEDS: ACETYLCYSTEINE 200 MG/ML 4ML VIAL INH SCH ×2 (07:50→21:00)
[2019-06-30] MEDS: LOSARTAN POTASSIUM 100 MG TAB PO SCH (08:15)
[2019-06-30] MEDS: AMLODIPINE BESYLATE 5 MG TAB PO SCH (08:15)
[2019-06-30] MEDS: METOPROLOL SUCCINATE 50 MG TAB XL PO SCH (08:16)
[2019-06-30] MEDS ORDERED: MEROPENEM 1GRAM 1 GM in SODIUM CHLORIDE 0.9% 100 ML 100 ML IV SCH (14:00)
[2019-06-30] MEDS: MEROPENEM 1GM 100 ML IV SCH ×2 (14:00→22:06)
--- NOTE | 2019-06-30 14:45 | NUR ---
PT RESTING QUIETLY. ABX INFUSING. NO CO PAIN.
--- NOTE | 2019-06-30 19:10 | NUR ---
Received bedside report from day nurse. Patient resting in bed, in stable condition, no s/s of distress or c/o pain at this time. All safety measures in place. Will continue to monitor.
--- NOTE | 2019-06-30 23:00 | NUR ---
RECEIVED REPORT FROM PREVIOUS NURSE. CALL LIGHT WITHIN REACH. PATIENT IN BED.
--- NOTE | 2019-06-30 23:04 | NUR ---
Report given to Mariia RENEE. Patient resting in bed, in stable condition, no s/s of distress or c/o pain at this time. All safety measures in place.
[2019-07-01] VITALS (8 sets, daily range): BP systolic 103–123; BP diastolic 66–81
--- NOTE | 2019-07-01 01:35 | NUR ---
Pulmonary Medicine DATE 06/30/2019 SUBJECTIVE: wbc still critically high eating able to walk without dizziness intermittent cough REVIEW OF SYSTEMS: no bleeding, no rash PHYSICAL EXAMINATION: VITAL SIGNS: vital signs noted and reviewed per the chart record. GENERAL: NAD, alert, calm. HEENT: Normocephalic and atraumatic. NECK: Supple. Throat midline. LUNGS: Bilateral air entry moderate/decreased, few rhonchi. CARDIOVASCULAR: S1 and S2. No murmurs, rubs, or gallops. ABDOMEN: Soft and nontender. EXTREMITIES: No clubbing, no cyanosis, no edema. INTEGUMENT: No rash. No purpura. LABORATORY DATA: wbc 29k, hct 39, plt 183 IMPRESSION AND PLAN: 1. Community-acquired pneumonia, dense 2. Parapneumonic pleural effusion 3. Underlying pulmonary fibrosis 3. Chronic smoker, quit 6 years ago. 4. 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 5. History of atrial fibrillation. (off anticoagulation per patient) 6. Hypertension, hypothyroidism, prostate problem. IV abx for pneumonia -expand abx for resistant organisms given the worsening WBC sputum no significant growth, no resistant orgs noted hold anticoagulation prior to any procedure Encourage expectoration DVT ppx Thank you very much, Dr. Wood and Dr. Denney, for allowing me a chance to participate in care of Mr. Estrada. Please call for questions.
--- NOTE | 2019-07-01 02:05 | NUR ---
Called and talked to Dr. Jelena Wood about patient's vanco trough being 17.7. Dr. Jelena Wood said to change it to once a day not q12.
[2019-07-01] MEDS: ALBUTEROL SULF 0.083% NEB SOLN 3 ML NEB NEB SCH ×6 (03:00→23:00)
[2019-07-01] MEDS: IPRATROPIUM BROMIDE 0.02% 2.5 ML NEB NEB SCH ×6 (03:00→23:00)
[2019-07-01 05:52] LABS: HEMATOCRIT 37.9 % (38.2-49.6); HEMOGLOBIN 11.9 g/dL (14.0-18.0); MEAN CORPUSCULAR HEMOGLOBIN 27.4 pg (28-32); MEAN CORPUSCULAR HGB CONC 31.4 g/dL (31-35); MEAN CORPUSCULAR VOLUME 87.3 fL (81-99); PLATELET COUNT 170 x10e3/uL (140-360); RED BLOOD COUNT 4.34 x10e6/uL (4.3-5.7); RED CELL DISTRIBUTION WIDTH 14.9 % (11.7-14.4)
[2019-07-01 05:53] LABS: BASOPHILS # (AUTO) 0.1 (0.0-0.1); BASOPHILS % 0.2 % (0.0-1.0); EOSINOPHILS # (AUTO) 0.2 (0.0-0.4); EOSINOPHILS % 0.8 % (0.0-6.0); LYMPHOCYTES # (AUTO) 22.5 (1.0-3.2); LYMPHOCYTES % 76.5 % (18.0-39.1); MONOCYTES % 3.5 % (4.4-11.3); NEUTROPHILS # (AUTO) 5.5 (2.1-6.9); NEUTROPHILS % 18.7 % (38.7-80.0)
[2019-07-01] MEDS: LEVOTHYROXINE SODIUM 112 MCG TAB PO SCH (05:53)
[2019-07-01] MEDS: LEVOTHYROXINE SODIUM 25 MCG TABLET PO SCH (05:53)
[2019-07-01] MEDS: MEROPENEM 1GM 100 ML IV SCH ×3 (05:53→22:30)
[2019-07-01] MEDS: ACETYLCYSTEINE 200 MG/ML 4ML VIAL INH SCH ×2 (06:50→21:00)
--- NOTE | 2019-07-01 06:56 | NUR ---
RECEIVED BEDSIDE SHIFT REPORT FROM OFF GOING NURSE. PATIENT IS IN STABLE CONDITION. CALL LIGHT WITHIN REACH. BED IN THE LOWEST POSITION.
--- NOTE | 2019-07-01 07:16 | NUR ---
Gave report to oncoming nurse. call light within reach. Patient in bed.
[2019-07-01 08:01] LABS: LYMPHOCYTES % (MANUAL) 61 % (19-48); MONOCYTES % (MANUAL) 5 % (3.4-9.0); NEUTROPHILS % (MANUAL) 30 % (40-74)
[2019-07-01 08:02] LABS: PLATELET ESTIMATE ADEQUATE; PLATELET MORPHOLOGY COMMENT NORMAL; RBC MORPHOLOGY COMMENT NORMAL; SMUDGE CELLS MODERATE
[2019-07-01] MEDS: VANCOMYCIN 1GM/NS 250 ML 250 ML IV SCH (09:24)
[2019-07-01] MEDS: METOPROLOL SUCCINATE 50 MG TAB XL PO SCH (09:24)
[2019-07-01] MEDS: AMLODIPINE BESYLATE 5 MG TAB PO SCH (09:24)
[2019-07-01] MEDS: LOSARTAN POTASSIUM 100 MG TAB PO SCH (09:24)
--- NOTE | 2019-07-01 14:26 | NUR ---
Pulmonary Medicine DATE 07/01/2019 SUBJECTIVE: wbc still critically high eating cough persists arms with cord, but not a lot of redness, at old IV site and new site REVIEW OF SYSTEMS: no bleeding, no rash PHYSICAL EXAMINATION: VITAL SIGNS: vital signs noted and reviewed per the chart record. GENERAL: NAD, alert, calm. HEENT: Normocephalic and atraumatic. NECK: Supple. Throat midline. LUNGS: Bilateral air entry moderate/decreased, few rhonchi. CARDIOVASCULAR: S1 and S2. No murmurs, rubs, or gallops. ABDOMEN: Soft and nontender. EXTREMITIES: No clubbing, no cyanosis, no edema. INTEGUMENT: No rash. No purpura. LABORATORY DATA: wbc 29k, hct 38, plt 170 IMPRESSION AND PLAN: 1. Community-acquired pneumonia, dense 2. Parapneumonic pleural effusion 3. Underlying pulmonary fibrosis 3. Chronic smoker, quit 6 years ago. 4. 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 5. History of atrial fibrillation. (off anticoagulation per patient) 6. Hypertension, hypothyroidism, prostate problem. 7. Phlebitis NOS IV abx for pneumonia -expanded abx for resistant organisms sputum no significant growth, no resistant organisms noted hold anticoagulation prior to any procedure Encourage expectoration warm packs to possible phlebitis, change all old IVs DVT ppx Thank you very much, Dr. Wood and Dr. Denney, for allowing me a chance to participate in care of Mr. Estrada. Please call for questions.
--- NOTE | 2019-07-01 14:29 | NUR ---
PULMONARY Tentative bronchoscopy tomorrow d/w medical team
--- NOTE | 2019-07-01 18:56 | NUR ---
REPORT GIVEN TO ONCOMING NURSE. PATIENT IS RESTING IN BED. NO ACUTE DISTRESS NOTED. CALL LIGHT WITHIN REACH. BED IN THE LOWEST POSITION. BED ALARM ON.
[2019-07-01] MEDS: AZITHROMYCIN 500MG/NS 250 ML 250 ML IV SCH (21:44)
[2019-07-02] VITALS (8 sets, daily range): BP systolic 94–135; BP diastolic 67–89
[2019-07-02] MEDS: IPRATROPIUM BROMIDE 0.02% 2.5 ML NEB NEB SCH ×6 (03:00→23:00)
[2019-07-02] MEDS: ALBUTEROL SULF 0.083% NEB SOLN 3 ML NEB NEB SCH ×6 (03:00→23:00)
[2019-07-02] MEDS: MEROPENEM 1GM 100 ML IV SCH ×3 (05:57→23:00)
[2019-07-02] MEDS: LEVOTHYROXINE SODIUM 112 MCG TAB PO SCH (05:57)
[2019-07-02] MEDS: LEVOTHYROXINE SODIUM 25 MCG TABLET PO SCH (05:57)
[2019-07-02 06:03] LABS: BASOPHILS # (AUTO) 0.1 (0.0-0.1); BASOPHILS % 0.2 % (0.0-1.0); EOSINOPHILS # (AUTO) 0.2 (0.0-0.4); EOSINOPHILS % 0.7 % (0.0-6.0); HEMATOCRIT 38.9 % (38.2-49.6); HEMOGLOBIN 12.4 g/dL (14.0-18.0); LYMPHOCYTES % 69.1 % (18.0-39.1); MEAN CORPUSCULAR HEMOGLOBIN 27.5 pg (28-32); MEAN CORPUSCULAR HGB CONC 31.9 g/dL (31-35); MEAN CORPUSCULAR VOLUME 86.3 fL (81-99); MONOCYTES % 3.7 % (4.4-11.3); NEUTROPHILS # (AUTO) 6.7 (2.1-6.9); NEUTROPHILS % 25.9 % (38.7-80.0); PLATELET COUNT 168 x10e3/uL (140-360); RED BLOOD COUNT 4.51 x10e6/uL (4.3-5.7); RED CELL DISTRIBUTION WIDTH 14.9 % (11.7-14.4)
[2019-07-02 06:32] LABS: INR 1.07; PARTIAL THROMBOPLASTIN TIME 32.2 seconds (23.8-35.5); PROTHROMBIN TIME 14.4 seconds (11.9-14.5)
[2019-07-02 06:39] LABS: ANION GAP 12.4 mmol/L (8-16); BLOOD UREA NITROGEN 18 mg/dL (7-26); BUN/CREATININE RATIO 26 (6-25); CALCIUM 8.4 mg/dL (8.4-10.2); CARBON DIOXIDE 28 mmol/L (22-29); CHLORIDE 98 mmol/L (98-107); EST GLOMERULAR FILTRATION RATE > 60 ML/MIN (60-); GLUCOSE 84 mg/dL (74-118); POTASSIUM 4.4 mmol/L (3.5-5.1); SODIUM 134 mmol/L (136-145)
[2019-07-02] MEDS: ACETYLCYSTEINE 200 MG/ML 4ML VIAL INH SCH ×2 (06:46→19:30)
--- NOTE | 2019-07-02 07:25 | NUR ---
Gave report to oncoming nurse. Call light within reach. Patient in bed.
[2019-07-02 08:18] LABS: LYMPHOCYTES % (MANUAL) 64 % (19-48); MONOCYTES % (MANUAL) 3 % (3.4-9.0); NEUTROPHILS % (MANUAL) 28 % (40-74); PLATELET ESTIMATE ADEQUATE; PLATELET MORPHOLOGY COMMENT NORMAL; RBC MORPHOLOGY COMMENT NORMAL; SMUDGE CELLS MODERATE
[2019-07-02] MEDS: VANCOMYCIN 1GM/NS 250 ML 250 ML IV SCH (09:29)
[2019-07-02] MEDS ORDERED: LIDOCAINE HCL 2% 30 ML TUBE ONE (10:51)
[2019-07-02] MEDS ORDERED: LIDOCAINE HCL 4% 50 ML BTL ONE (10:51)
--- NOTE | 2019-07-02 11:02 | NUR ---
Pulmonary Medicine DATE 07/02/2019 SUBJECTIVE: wbc minimally decreased, very high eating cough persists strength stable REVIEW OF SYSTEMS: no bleeding, no rash PHYSICAL EXAMINATION: VITAL SIGNS: vital signs noted and reviewed per the chart record. GENERAL: NAD, alert, calm. HEENT: Normocephalic and atraumatic. NECK: Supple. Throat midline. LUNGS: Bilateral air entry moderate/decreased, few rhonchi. CARDIOVASCULAR: S1 and S2. No murmurs, rubs, or gallops. ABDOMEN: Soft and nontender. EXTREMITIES: No clubbing, no cyanosis, no edema. INTEGUMENT: No rash. No purpura. LABORATORY DATA: wbc 26k, hct 38, plt 170 IMPRESSION AND PLAN: 1. Community-acquired pneumonia, dense 2. Parapneumonic pleural effusion 3. Underlying pulmonary fibrosis 3. Chronic smoker, quit 6 years ago. 4. 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 5. History of atrial fibrillation. (off anticoagulation per patient) 6. Hypertension, hypothyroidism, prostate problem. 7. Phlebitis NOS IV abx for pneumonia -expanded abx for resistant organisms sputum no significant growth, no resistant organisms noted hold anticoagulation prior to any procedure, resume 'antiplatelet blood thinners' after bronchoscopy Encourage expectoration warm packs to possible phlebitis, change all old IVs DVT ppx Thank you very much, Dr. Wood and Dr. Denney, for allowing me a chance to participate in care of Mr. Esrtada. Please call for questions.
[2019-07-02] MEDS: LOSARTAN POTASSIUM 100 MG TAB PO SCH (12:05)
[2019-07-02] MEDS: AMLODIPINE BESYLATE 5 MG TAB PO SCH (12:05)
[2019-07-02] MEDS: METOPROLOL SUCCINATE 50 MG TAB XL PO SCH (12:05)
--- NOTE | 2019-07-02 12:35 | Operative Report ---
DATE OF PROCEDURE: 07/02/2019 SURGEON: Jd Alvarenga MD OPERATIVE PROCEDURE: Fiberoptic bronchoscopy, bronchoalveolar lavage, bronchial washing. INDICATION: Interstitial lung disease, refractory pneumonia. ANESTHESIA: MAC anesthesia given. CONSENT: Informed consent from the patient. OPERATIVE FINDINGS: The patient had LMA placed in his airway. Fiberoptic bronchoscope was inserted above the vocal cords. Vocal cords were difficult to assess due to level of anesthesia. LMA placed by Anesthesiology. The fiberoptic bronchoscope was inserted just above the vocal cords. There was mild asymmetry noted, but due to the depth of anesthesia, we were not able to do a good vocal cord evaluation. The right vocal cord seem to be less mobile than left vocal cord. Nonetheless, local lidocaine was provided and then the tracheobronchial tree was entered by the bronchoscope. The airways were inspected. There was small to moderate white purulent secretions and these were suctioned. The patient had no endobronchial airways and normal confirmation/configuration of airways. Right lower lobe anterior segment was wedged and an attempt for bronchoalveolar lavage was performed, but after one washing, it was noted the airways were hyper collapsible. Therefore, we inserted the scope into the right middle lobe lateral airways. Three aliquots of 140 mL total were inserted with very poor retrieval of the instilled aliquots, therefore bronchioloalveolar lavaged. Specimen of only a few mL was discarded. Bronchial washes were performed of the airways and there was no re-pulling of airway secretions once they were suctioned out. Thereafter, the patient was left to recover with anesthesia and the procedure was terminated. IMPRESSION: [id number] mucoid bronchitis. Status post washing. Limited vocal cord assessment, cannot rule out hypomobility of right vocal cord. RECOMMENDATIONS: Followup microbiologic studies. Continue followup by subspecialty supervisor air conditioning installer with consideration of ENT referral if indicated. COMPLICATIONS: None. ESTIMATED BLOOD LOSS: None. MD TREVOR Bishop/MODL /[id number]
[2019-07-02] MEDS ORDERED: LIDOCAINE HCL 2% LOCAL INJ 5 ML SDV VIAL INJ ONE (16:12)
[2019-07-02] MEDS ORDERED: PROPOFOL IV EMULSION 10 MG/ML 20 ML VIAL ONE (16:12)
[2019-07-02] MEDS ORDERED: KETAMINE HCL INJ 50 MG/ML 10 ML VIAL ONE (16:14)
--- NOTE | 2019-07-02 19:30 | NUR ---
oncoming shift report received from dayshift RN, patient sitting in bed, no distress noted, skin warm dry, no c/o pain or discomfort at this time, patient oriented to shift change, oncoming shift and POC, IV assessment completed, patent flushes well
[2019-07-02] MEDS: AZITHROMYCIN 500MG/NS 250 ML 250 ML IV SCH (21:48)
--- NOTE | 2019-07-02 22:30 | NUR ---
Bed alarmed, patient seen walking to bathroom independently, advised him to call prior to ambulating for safety, became upset stating "Who put that on, that is not suppose to be on, can you turn that off" advised patient that it will remain on for safety, waited for patient to finish toileting, safety returned to bed, RLF IV site flushed patent, IV abt therapy started patient tolerated well
[2019-07-03] VITALS (8 sets, daily range): BP systolic 90–115; BP diastolic 55–76
--- NOTE | 2019-07-03 01:06 | NUR ---
patient SBP 90, assessment completed, asymptomatic, will continue to monitor
[2019-07-03] MEDS: IPRATROPIUM BROMIDE 0.02% 2.5 ML NEB NEB SCH ×6 (03:00→23:05)
[2019-07-03] MEDS: ALBUTEROL SULF 0.083% NEB SOLN 3 ML NEB NEB SCH ×6 (03:00→23:05)
--- NOTE | 2019-07-03 04:59 | NUR ---
call light answered, patient requesting that room door be closed completely to prevent light/noise filtering in, request carried out, call light within reach denies pain or discomfort, refuse oral hydration at this time, jessica continue to monitor
[2019-07-03] MEDS: MEROPENEM 1GM 100 ML IV SCH ×3 (05:21→22:26)
[2019-07-03] MEDS: LEVOTHYROXINE SODIUM 112 MCG TAB PO SCH (05:21)
[2019-07-03] MEDS: LEVOTHYROXINE SODIUM 25 MCG TABLET PO SCH (05:21)
--- NOTE | 2019-07-03 06:56 | NUR ---
RECEIVED BEDSIDE SHIFT REPORT FROM OFF GOING NURSE. PATIENT IS IN STABLE CONDITION. DENIES PAIN OR DISCOMFORT. CALL LIGHT WITHIN REACH. BED IN THE LOWEST POSITION.
[2019-07-03 06:59] LABS: BASOPHILS % 0.2 % (0.0-1.0); EOSINOPHILS % 0.1 % (0.0-6.0); HEMATOCRIT 36.3 % (38.2-49.6); HEMOGLOBIN 11.3 g/dL (14.0-18.0); LYMPHOCYTES # (AUTO) 7.7 (1.0-3.2); LYMPHOCYTES % 47.3 % (18.0-39.1); MEAN CORPUSCULAR HEMOGLOBIN 27.4 pg (28-32); MEAN CORPUSCULAR HGB CONC 31.1 g/dL (31-35); MEAN CORPUSCULAR VOLUME 88.1 fL (81-99); MONOCYTES % 6.1 % (4.4-11.3); NEUTROPHILS # (AUTO) 7.4 (2.1-6.9); NEUTROPHILS % 45.6 % (38.7-80.0); PLATELET COUNT 156 x10e3/uL (140-360); RED BLOOD COUNT 4.12 x10e6/uL (4.3-5.7); RED CELL DISTRIBUTION WIDTH 14.9 % (11.7-14.4)
--- NOTE | 2019-07-03 07:03 | NUR ---
offgoing SBAR report received at bedside, patient seen sleeping, no distress noted, skin warm dry, Oncoming shift RN made aware patient is s/p bronchoscopy on in the am, respirations even and unlabored, lung sounds are rhonchi & wheezy, oxygen therapy @3liters per nasal cannula, call light within reach
[2019-07-03 08:28] LABS: LYMPHOCYTES % (MANUAL) 42 % (19-48); MONOCYTES % (MANUAL) 3 % (3.4-9.0); NEUTROPHILS % (MANUAL) 54 % (40-74); PLATELET ESTIMATE ADEQUATE; PLATELET MORPHOLOGY COMMENT NORMAL; RBC MORPHOLOGY COMMENT NORMAL; SMUDGE CELLS FEW
[2019-07-03] MEDS: VANCOMYCIN 1GM/NS 250 ML 250 ML IV SCH (08:33)
[2019-07-03] MEDS: METOPROLOL SUCCINATE 50 MG TAB XL PO SCH (08:34)
[2019-07-03] MEDS: AMLODIPINE BESYLATE 5 MG TAB PO SCH (08:34)
[2019-07-03] MEDS: LOSARTAN POTASSIUM 100 MG TAB PO SCH (08:34)
[2019-07-03] MEDS: ACETYLCYSTEINE 200 MG/ML 4ML VIAL INH SCH (09:00)
--- NOTE | 2019-07-03 16:10 | Progress Note ---
DATE: Internal Medicine Progress Note SUBJECTIVE: The patient is doing better. He want to go home. PHYSICAL EXAMINATION: HEART: Showed regular rhythm. Normal S1, S2 sound. LUNGS: Show decreased breath sounds bilaterally. ABDOMEN: Soft. EXTREMITIES: Show no evidence of cyanosis or hematoma. VITAL SIGNS: Blood pressure 99/70, temperature 96.7, heart rate 67 per minute, respiratory rate 20 per minute, oxygen saturation 96% on nasal cannula. LABORATORY DATA: On the blood work, we have a CBC with a white blood count of 16,190, hemoglobin 11.3, hematocrit 36.3, platelet count 156,000. On the BMP; sodium 134, potassium 4.4, chloride 98, CO2 28, BUN 18, creatinine 0.70, glucose 84, calcium 8.4. AST 9, ALT 13, alkaline phosphatase 49, brain natriuretic peptide is elevated at 196.7. Total protein 5.4, albumin 3.1, globulin 2.3. The last vancomycin trough is 17.7, which is in therapeutic range. Coagulation showed PT 14.4, INR 1.07, PTT is 32.2. Serologies show influenza A and B negative. CT of the chest show evidence of advanced upper lobe predominant emphysematous changes with multifocal mucoid impaction of the segmental fibro bronchi as above. Bibasilar fibrosis honeycombing, which might be idiopathic age-related consequence of underlying collagen vascular disease or drug toxicity and also probable reactive hilar mediastinal adenopathy. Enlargement of the pulmonary outflow tract, suggestive of pulmonary hypertension. No pneumonia. He has some trace bilateral pleural effusion. 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 Correlate for point tenderness. FINAL IMPRESSION: 1. Chronic obstructive pulmonary disease exacerbation. 2. Leukocytosis. 3. Hypertension. 4. Hyponatremia. 5. Pulmonary arterial hypertension. 6. Pulmonary fibrosis. 7. Physical deconditioning. PLAN OF TREATMENT: We are going to order some physical therapy and see if the patient can be independent enough to be able to go home tomorrow. We are going to do an evaluation for oxygen saturation to see his oxygen on room air is more than 90% or if it is less than 90% on room air at rest or walking, the patient might need oxygen at home. Dr. Alvarenga is on the case from [facility] also. The rest of the treatment, we will continue with: 1. Zithromax 500 mg IV daily. 2. Meropenem 1 g IV q.8 hours. 3. Vancomycin 1 g daily. 4. Mucomyst 200 inhalation twice a day. 5. Albuterol q.4 hours. 6. Amlodipine 5 mg daily. 7. Atrovent q.4 hours. 8. Continue ketamine one time. 9. Levothyroxine 0.112 mcg p.o. daily and 25 mcg p.o. daily. 10. Continue losartan 100 mg daily. 11. Metoprolol 50 mg daily. 12. He will be DNR. Discharge summary; we are going to do an evaluation to see the patient might be able to go home tomorrow. The case discussed with the patient for 45 minutes. MD PITER Romero/BUBBA /[id number]
--- NOTE | 2019-07-03 18:13 | NUR ---
Pulmonary Medicine DATE 07/03/2019 SUBJECTIVE: wbc decreased, now 16k in 2.0 / out 0.6 less coughing eating REVIEW OF SYSTEMS: no bleeding, no rash PHYSICAL EXAMINATION: VITAL SIGNS: vital signs noted and reviewed per the chart record. GENERAL: NAD, alert, calm. HEENT: Normocephalic and atraumatic. NECK: Supple. Throat midline. LUNGS: Bilateral air entry moderate/decreased, no wheezes CARDIOVASCULAR: S1 and S2. No murmurs, rubs, or gallops. ABDOMEN: Soft and nontender. EXTREMITIES: No clubbing, no cyanosis, no edema. INTEGUMENT: No rash. No purpura. LABORATORY DATA: per EMR IMPRESSION AND PLAN: 1. Community-acquired pneumonia, dense 2. Parapneumonic pleural effusion 3. Underlying pulmonary fibrosis 3. Chronic smoker, quit 6 years ago. 4. 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 5. History of atrial fibrillation. (off anticoagulation per patient) 6. Hypertension, hypothyroidism, prostate problem. 7. Phlebitis NOS IV abx for pneumonia -expanded abx for resistant organisms sputum no significant growth, no resistant organisms noted Encourage expectoration warm packs to possible phlebitis, change all old IVs DVT ppx Thank you very much, Dr. Wood and Dr. Denney, for allowing me a chance to participate in care of Mr. Estrada. Please call for questions.
--- NOTE | 2019-07-03 19:18 | NUR ---
BEDSIDE SHIFT REPORT GIVEN TO ONCOMING NURSE. PATIENT IS IN STABLE CONDITION, NO S/S OF DISTRESS. CALL LIGHT WITHIN REACH. BED IN THE LOWEST POSITION.
[2019-07-03] MEDS: AZITHROMYCIN 500MG/NS 250 ML 250 ML IV SCH (21:00)
[2019-07-04] VITALS (8 sets, daily range): BP systolic 105–124; BP diastolic 67–85
--- NOTE | 2019-07-04 00:20 | NUR ---
Assessment done.no resp.distress.no pain voiced.voided.on nasal cannula o2 3 litre.refused to put bed alarm on.bed locked and in lowest position.phone and call light within reach.instructed to call for assistance as needed.
[2019-07-04] MEDS: LEVOTHYROXINE SODIUM 112 MCG TAB PO SCH (05:38)
[2019-07-04] MEDS: LEVOTHYROXINE SODIUM 25 MCG TABLET PO SCH (05:38)
[2019-07-04] MEDS: MEROPENEM 1GM 100 ML IV SCH ×3 (05:38→22:39)
--- NOTE | 2019-07-04 05:42 | NUR ---
Has pain at the right upper arm,previous iv site.warm compress applied.
[2019-07-04 06:13] LABS: BASOPHILS # (AUTO) 0.1 (0.0-0.1); BASOPHILS % 0.4 % (0.0-1.0); EOSINOPHILS # (AUTO) 0.2 (0.0-0.4); HEMATOCRIT 36.1 % (38.2-49.6); HEMOGLOBIN 11.2 g/dL (14.0-18.0); LYMPHOCYTES % 65.7 % (18.0-39.1); MEAN CORPUSCULAR HEMOGLOBIN 27.3 pg (28-32); MEAN CORPUSCULAR VOLUME 87.8 fL (81-99); MONOCYTES # (AUTO) 1.5 (0.2-0.8); MONOCYTES % 7.8 % (4.4-11.3); NEUTROPHILS # (AUTO) 4.9 (2.1-6.9); NEUTROPHILS % 24.7 % (38.7-80.0); PLATELET COUNT 153 x10e3/uL (140-360); RED BLOOD COUNT 4.11 x10e6/uL (4.3-5.7); RED CELL DISTRIBUTION WIDTH 15.2 % (11.7-14.4)
--- NOTE | 2019-07-04 06:55 | NUR ---
Bed side shift report given to the oncoming Rn.stable condition.
--- NOTE | 2019-07-04 06:56 | NUR ---
RECEIVED BEDSIDE SHIFT REPORT FROM OFF GOING NURSE. PATIENT IS RESTING IN BED. NO ACUTE DISTRESS NOTED. DENIES PAIN OR DISCOMFORT. CALL LIGHT WITHIN REACH. BED IN THE LOWEST POSITION.
[2019-07-04] MEDS: ALBUTEROL SULF 0.083% NEB SOLN 3 ML NEB NEB SCH ×5 (07:00→23:00)
[2019-07-04] MEDS: IPRATROPIUM BROMIDE 0.02% 2.5 ML NEB NEB SCH ×5 (07:00→23:00)
[2019-07-04] MEDS: VANCOMYCIN 1GM/NS 250 ML 250 ML IV SCH (09:24)
[2019-07-04] MEDS: LOSARTAN POTASSIUM 100 MG TAB PO SCH (09:25)
[2019-07-04] MEDS: AMLODIPINE BESYLATE 5 MG TAB PO SCH (09:25)
[2019-07-04] MEDS: METOPROLOL SUCCINATE 50 MG TAB XL PO SCH (09:33)
--- NOTE | 2019-07-04 13:15 | Progress Note ---
DATE: Internal Medicine Progress Note SUBJECTIVE: The patient is not feeling well today because of shortness of breath and wheezing. OBJECTIVE: VITAL SIGNS: Blood pressure 113/77, temperature 98.6, heart rate 76 per minute, respiratory rate 20 per minute, and oxygen saturation 98%. HEART: Showed regular rhythm. Normal S1 and S2 sound. LUNGS: Show decreased breath sounds and wheezing bilaterally. ABDOMEN: Soft. LABORATORY DATA: On the BMP, we have sodium of 134, potassium 4.4, chloride 98, CO2 28, BUN 18, creatinine 1.10, and glucose 84. On the CBC; white blood count 19,700, which is higher than yesterday, hemoglobin 11.2, hematocrit 36.1, and platelet count 153,000. PT 14.4, INR 1.07, and PTT 32.2. AST 9, ALT 13, total bilirubin 0.5, and alkaline phosphatase 49. FINAL IMPRESSION: 1. Chronic obstructive pulmonary disease exacerbation. 2. Leukocytosis. 3. Hypertension. 4. Hyponatremia. 5. Pulmonary arterial hypertension. PLAN OF TREATMENT: Continue albuterol q.4 hours, Atrovent q.4 hours, Zithromax q.24 hours, meropenem 1 g IV q.8 hours, and Zithromax 500 mg IV once a day. Continue vancomycin 1 g IV once a day, losartan 100 mg daily, metoprolol 50 mg daily, levothyroxine 112 mcg daily and 25 mcg daily, and Norvasc 5 mg daily. So far, blood culture and urine culture are completely negative. Sputum culture shows some yeast. We are waiting for [employer] report also. MD PITER Romero/BUBBA /[id number]
--- NOTE | 2019-07-04 16:21 | NUR ---
Pulmonary Medicine DATE 07/04/2019 SUBJECTIVE: wbc elevated still wheezing mild 3 L/min oxygen mild malaise REVIEW OF SYSTEMS: no bleeding, no rash PHYSICAL EXAMINATION: VITAL SIGNS: vital signs noted and reviewed per the chart record. GENERAL: NAD, alert, calm. HEENT: Normocephalic and atraumatic. NECK: Supple. Throat midline. LUNGS: Bilateral air entry moderate/decreased, no wheezes CARDIOVASCULAR: S1 and S2. No murmurs, rubs, or gallops. ABDOMEN: Soft and nontender. EXTREMITIES: No clubbing, no cyanosis, no edema. INTEGUMENT: No rash. No purpura. LABORATORY DATA: per EMR IMPRESSION AND PLAN: 1. Community-acquired pneumonia, dense 2. Parapneumonic pleural effusion 3. Underlying pulmonary fibrosis 3. Chronic smoker, quit 6 years ago. 4. 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 5. History of atrial fibrillation. (off anticoagulation per patient) 6. Hypertension, hypothyroidism, prostate problem. 7. Phlebitis NOS IV abx for pneumonia -expanded abx for resistant organisms sputum no significant growth, no resistant organisms noted Encourage expectoration warm packs to phlebitis DVT ppx Thank you very much, Dr. Wood and Dr. Denney, for allowing me a chance to participate in care of Mr. Estrada. Please call for questions.
--- NOTE | 2019-07-04 19:22 | NUR ---
BEDSIDE SHIFT REPORT GIVEN TO ONCOMING NURSE. PATIENT IS RESTING IN BED. NO ACUTE DISTRESS NOTED. CALL LIGHT WITHIN REACH. BED IN THE LOWEST POSITION.
--- NOTE | 2019-07-04 19:24 | NUR ---
PT IS RESTING IN BED. RESPIRATION IS EVEN AND UNLABORED, NO DISTRESS NOTED. BED IN THE LOWEST POSITION, LOCKED, BED ALARM ON, AND CALL LIGHT WITHIN REACH. WILL CONTINUE TO MONITOR.
[2019-07-04] MEDS: AZITHROMYCIN 500MG/NS 250 ML 250 ML IV SCH (21:18)
[2019-07-05 00:32] VITALS: BP 134/89
[2019-07-05] MEDS: IPRATROPIUM BROMIDE 0.02% 2.5 ML NEB NEB SCH ×4 (03:00→15:00)
[2019-07-05] MEDS: ALBUTEROL SULF 0.083% NEB SOLN 3 ML NEB NEB SCH ×4 (03:00→15:00)
[2019-07-05 05:33] VITALS: BP 113/72
[2019-07-05] MEDS: MEROPENEM 1GM 100 ML IV SCH ×2 (05:40→14:00)
[2019-07-05] MEDS: LEVOTHYROXINE SODIUM 112 MCG TAB PO SCH (05:49)
[2019-07-05] MEDS: LEVOTHYROXINE SODIUM 25 MCG TABLET PO SCH (05:49)
[2019-07-05 06:03] LABS: BASOPHILS # (AUTO) 0.1 (0.0-0.1); BASOPHILS % 0.3 % (0.0-1.0); EOSINOPHILS # (AUTO) 0.1 (0.0-0.4); EOSINOPHILS % 0.6 % (0.0-6.0); HEMATOCRIT 36.6 % (38.2-49.6); HEMOGLOBIN 11.5 g/dL (14.0-18.0); LYMPHOCYTES # (AUTO) 14.3 (1.0-3.2); LYMPHOCYTES % 66.1 % (18.0-39.1); MEAN CORPUSCULAR HEMOGLOBIN 27.4 pg (28-32); MEAN CORPUSCULAR HGB CONC 31.4 g/dL (31-35); MEAN CORPUSCULAR VOLUME 87.4 fL (81-99); MONOCYTES % 4.4 % (4.4-11.3); NEUTROPHILS # (AUTO) 6.1 (2.1-6.9); NEUTROPHILS % 28.1 % (38.7-80.0); PLATELET COUNT 162 x10e3/uL (140-360); RED BLOOD COUNT 4.19 x10e6/uL (4.3-5.7); RED CELL DISTRIBUTION WIDTH 15.2 % (11.7-14.4)
--- NOTE | 2019-07-05 07:30 | NUR ---
PT UP IN BED SLEEPING,O2 2L NC IN PLACE,NO S/S DISTRESS
[2019-07-05 07:40] VITALS: BP 112/74
[2019-07-05] MEDS: AMLODIPINE BESYLATE 5 MG TAB PO SCH (09:08)
[2019-07-05] MEDS: METOPROLOL SUCCINATE 50 MG TAB XL PO SCH (09:08)
[2019-07-05] MEDS: LOSARTAN POTASSIUM 100 MG TAB PO SCH (09:08)
[2019-07-05] MEDS: VANCOMYCIN 1GM/NS 250 ML 250 ML IV SCH (09:30)
[2019-07-05 09:50] VITALS: BP 112/74
[2019-07-05] MEDS ORDERED: FLUCONAZOLE 200 MG/100 ML 100 ML IV SCH (11:00)
[2019-07-05 11:51] VITALS: BP 101/63
--- NOTE | 2019-07-05 13:35 | NUR ---
ORDERS FOR LTAC EVAL PT ALERT AND ORIENTED X 3 CHOICE LETTER SIGNED BY PT FOR [facility] MOT INITIATE AND PLACED ON PACKET AT DESK DWIGHT WITH [facility] NOTIFIED OF EVAL D/W NURSE CASSIUS PLAN DC THIS EVENING IF BED SECURED PT AGREEABLE WITH PLAN; GAVE PT MY CARD AND PHONE NUMBER FOR QUESTIONS/CONCERNS
--- NOTE | 2019-07-05 14:49 | NUR ---
Nutrition Screen Note RD Recommendation for Physician: -Continue current diet as ordered Plan of Care: RD following, monitoring for tolerance and adequacy Nutrition reason for involvement: follow up Primary Diagnose(s): COPD exacerbation, pneumonia PMH: HTN, hypothyroid, prostate disorder, lower back surgery, afib Ht: 73 in Wt:144 lb BMI: 19.1 kg/m2 IBW:[address] Assessment: 07/05: Pt reports good appetite and po intake, states "I eat everything they bring me." Pt denies any GI distress. Pt with no questions or concerns at time of visit, no family present. Pt discussed during am rounds. Chart reviewed. Labs and meds noted. Will monitor and continue to follow. (06/28/19) Chart reviewed. Labs and meds reviewed. Pt is a 78 year old male admitted with COPD exacerbation and pneumonia. Pt stated his appetite has been good and eating >50% of meals. Pt is unsure if he has lost wt and mentioned he usually weighs 152 lbs. However, pt currently has a wt of 144 lbs in chart. On previous admission, pt had weights ranging from 137-148 lbs in March 2019. No N/V/D/C reported and no chewing/swallowing issues. Will continue to monitor. Current Diet: cardiac diet Malnutrition Evaluation (06/28/19) The patient does not meet criteria for a specified degree of malnutrition at this time. Will re-evaluate at follow-up as appropriate. Diet Education Needs Assessment: Pt was not interested in diet education at time of visit. Nutrition Care Level: low Signed: Evangelina More RD, LD, [facility]
[2019-07-05 16:27] VITALS: BP 117/72
--- NOTE | 2019-07-05 17:59 | NUR ---
PT UP IN BED,REPORT CALLED TO ANGIE,PT DENIES PAIN,O2 2L NC IN PLACE
--- NOTE | 2019-07-05 23:31 | Consultation ---
DATE OF CONSULTATION: REASON FOR CONSULTATION: Leukocytosis. HISTORY OF PRESENT ILLNESS: This patient is a very pleasant 78-year-old, who was admitted to this hospital on June 23 with shortness of breath. The patient who has history of hypertension, hypothyroidism, prostate hypertrophy, low back pain, low back surgery, atrial fibrillation, comes in with shortness of breath and cough. For a week, he was started on IV antibiotic. The patient is telling me since he came here clinically has been improving. However, his white count is continued to go up, so I am asked to see him. The patient when he first came in, he was admitted with community-acquired pneumonia with parapneumonic pleural effusion. The patient who has history of smoking, but he quit six years ago, history of exposure to asbestosis, history of atrial fibrillation, history of hypertension, hypothyroidism. PAST SURGICAL HISTORY: As above. ALLERGIES: NKA. SOCIAL HISTORY: Currently, there is no smoking, drug abuse or alcohol abuse, all mentioned above. When he first came, the patient had blood cultures, urine cultures are negative. He underwent a bronchoscopy with showing yeast. It was less than 25 squamous epithelial cells, few WBC. He had a CT of the chest June 29, which showed there was no consolidation, advanced upper lobe emphysematous changes, multifocal mucoid impaction of segmental bronchi as above. The patient is currently on meropenem, fluconazole, vancomycin and azithromycin. PHYSICAL EXAMINATION: GENERAL: Currently alert, oriented, does not seem to be in acute distress. VITAL SIGNS: Stable, currently afebrile. HEENT: Not icteric. NECK: Supple. CHEST: Clear bilateral. COR: S1 and S2. No S3, S4, or murmur. ABDOMEN: Soft. Bowel sounds present. No tenderness. EXTREMITIES: No edema. SKIN: No rash. IMPRESSION: 1. Shortness of breath, probably acute exacerbation of underlying chronic obstructive pulmonary disease, may be bronchitis. The CT does not reveal pneumonia. I will suggest to discontinue antibiotic and assess the patient clinically. 2. . 3. Persistent leukocytosis with lymphocytosis, concerned about a malignancy versus other. I would recommend to discontinue antibiotic. Check CBC with manual diff and then we will reassess. Other medical problems all mentioned above seem to be stable. We will discuss Internal Medicine. We will follow up with you. MD JOANA Pandya /[id number]
--- NOTE | 2019-07-06 02:32 | NUR ---
Pulmonary Medicine DATE 07/05/2019 SUBJECTIVE: wbc 22 k still stable sob patient with intermittent cough still able to walk REVIEW OF SYSTEMS: no bleeding, no rash PHYSICAL EXAMINATION: VITAL SIGNS: vital signs noted and reviewed per the chart record. GENERAL: NAD, alert, calm. HEENT: Normocephalic and atraumatic. NECK: Supple. Throat midline. LUNGS: Bilateral air entry moderate/decreased, no wheezes CARDIOVASCULAR: S1 and S2. No murmurs, rubs, or gallops. ABDOMEN: Soft and nontender. EXTREMITIES: No clubbing, no cyanosis, no edema. INTEGUMENT: No rash. No purpura. LABORATORY DATA: per EMR IMPRESSION AND PLAN: 1. Community-acquired pneumonia, dense 2. Parapneumonic pleural effusion 3. Underlying pulmonary fibrosis 3. Chronic smoker, quit 6 years ago. 4. 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 5. History of atrial fibrillation. (off anticoagulation per patient) 6. Hypertension, hypothyroidism, prostate problem. 7. Phlebitis NOS IV abx for pneumonia -continue expanded abx for resistant organisms sputum no significant growth, no resistant organisms noted Encourage expectoration warm packs to phlebitis DVT ppx LTAC transfer Thank you very much, Dr. Wood and Dr. Denney, for allowing me a chance to participate in care of Mr. Estrada. Please call for questions.
== END 2019-07-05 19:31 | DRG 191 ==
LOC: ER 11:17 → ERHOLD 15:09 → MED/SURG3 16:26
PROC: 0B9D8ZX Drainage of Right Middle Lung Lobe, Via Natural or Artificial Opening Endoscopic, Diagnostic (ICD-10-PCS; principal; 2019-06-23)
PROC: 0BB58ZX Excision of Right Middle Lobe Bronchus, Via Natural or Artificial Opening Endoscopic, Diagnostic (ICD-10-PCS; 2019-06-23)
PROC: 0BJ08ZZ Inspection of Tracheobronchial Tree, Via Natural or Artificial Opening Endoscopic (ICD-10-PCS; 2019-06-23)
DX: J41.1 Mucopurulent chronic bronchitis (principal); I48.20 Chronic atrial fibrillation, unspecified; E87.1 Hypo-osmolality and hyponatremia; M48.55XA Collapsed vertebra, not elsewhere classified, thoracolumbar region, initial encounter for fracture; J44.1 Chronic obstructive pulmonary disease with (acute) exacerbation; I10 Essential (primary) hypertension; Z79.01 Long term (current) use of anticoagulants; Z87.891 Personal history of nicotine dependence; Z57.5 Occupational exposure to toxic agents in other industries; E03.9 Hypothyroidism, unspecified; M54.5 Low back pain; N40.0 Benign prostatic hyperplasia without lower urinary tract symptoms; I25.10 Atherosclerotic heart disease of native coronary artery without angina pectoris; J84.10 Pulmonary fibrosis, unspecified; I27.21 Secondary pulmonary arterial hypertension
CPT/HCPCS: 31623; 36415; 71045; 71046; 71260; 74470; 76604; 80048; 80053; 80202; 81001; 82550; 82553; 83605; 83880; 84484; 85025; 85610; 85730; 87040; 87070; 87086; 87102; 87116; 87205; 87206; 87335; 87400; 93005; 94640; 99284; J0456; J0692; J0696; J1450; J1650; J2001; J2920; J2930; J3370; J7050; J7512; Q9967

== ENCOUNTER 2019-09-08 13:38 | Inpatient (IN) | payer MEDICARE, OTHER ==
[~2019-09-08] VITALS: Ht 185.4 cm; Wt 65.9 kg
[2019-09-08] MEDS ORDERED: SODIUM CHLORIDE 0.9% 1000ML 1,000 ML IV STA (13:50)
[2019-09-08] MEDS ORDERED: METHYLPREDNISOLONE SOD SUCC 125 MG/2ML VIAL IV ONE (14:00)
[2019-09-08] MEDS ORDERED: ALBUTEROL/IPRATROPIUM 3 ML NEB NEB ONE (14:00)
[2019-09-08 14:15] LABS: BASOPHILS # (AUTO) 0.1 (0.0-0.1); BASOPHILS % 0.3 % (0.0-1.0); EOSINOPHILS # (AUTO) 0.1 (0.0-0.4); EOSINOPHILS % 0.4 % (0.0-6.0); HEMATOCRIT 39.2 % (38.2-49.6); HEMOGLOBIN 12.3 g/dL (14.0-18.0); LYMPHOCYTES # (AUTO) 14.1 (1.0-3.2); LYMPHOCYTES % 61.6 % (18.0-39.1); MEAN CORPUSCULAR HEMOGLOBIN 26.9 pg (28-32); MEAN CORPUSCULAR HGB CONC 31.4 g/dL (31-35); MEAN CORPUSCULAR VOLUME 85.8 fL (81-99); MONOCYTES % 4.2 % (4.4-11.3); NEUTROPHILS # (AUTO) 7.5 (2.1-6.9); NEUTROPHILS % 32.9 % (38.7-80.0); PLATELET COUNT 175 x10e3/uL (140-360); RED BLOOD COUNT 4.57 x10e6/uL (4.3-5.7); RED CELL DISTRIBUTION WIDTH 16.8 % (11.7-14.4)
--- NOTE | 2019-09-08 14:21 | Diagnostic Imaging Report ---
Chest, 1 view, 09/08/2019. History: Shortness of breath. Comparison: 06/29/2019. Findings: The cardiomediastinal silhouette and pulmonary vasculature are prominent with hazy bilateral perihilar and bibasilar opacities, right greater than left, with blunting of the right costophrenic sulcus. There are no acute osseous or soft tissue abnormalities. Impression: Findings suggestive of CHF with bibasilar atelectasis and small right pleural effusion. Signed by: Vito Maharaj on 09/08/2019 2:19 PM
[2019-09-08 14:22] LABS: CLARITY,URINE SL CLOUDY (CLEAR); COLOR,URINE YELLOW (YELLOW); KETONES,URINE NEGATIVE (NEGATIVE); LEUKOCYTE ESTERASE ,URINE NEGATIVE (NEGATIVE); NITRITE,URINE NEGATIVE (NEGATIVE); PROTEIN,URINE DIPSTICK 2+ (NEGATIVE); URINE UROBILINOGEN 0.2 mg/dL (0.2 - 1)
[2019-09-08 14:23] LABS: BILIRUBIN,URINE NEGATIVE (NEGATIVE)
[2019-09-08 14:26] LABS: INR 2.37; PROTHROMBIN TIME 26.9 seconds (11.9-14.5)
[2019-09-08 14:27] LABS: PARTIAL THROMBOPLASTIN TIME 38.7 seconds (23.8-35.5)
[2019-09-08] MEDS: CEFTRIAXONE SOD 1 GM/NS 50 ML 50 ML IV SCH (14:31)
[2019-09-08 14:37] LABS: ALANINE AMINOTRANSFERASE 29 IU/L (0-55); ALBUMIN 3.8 g/dL (3.5-5.0); ALBUMIN/GLOBULIN RATIO 1.7 (0.8-2.0); ALKALINE PHOSPHATASE 61 IU/L (40-150); ANION GAP 15.5 mmol/L (8-16); BLOOD UREA NITROGEN 21 mg/dL (7-26); BUN/CREATININE RATIO 21 (6-25); CARBON DIOXIDE 26 mmol/L (22-29); CHLORIDE 98 mmol/L (98-107); CREATINE KINASE 40 IU/L (30-200); CREATININE, SERUM 1.02 mg/dL (0.72-1.25); EST GLOMERULAR FILTRATION RATE > 60 ML/MIN (60-); GLUCOSE 132 mg/dL (74-118); POTASSIUM 4.5 mmol/L (3.5-5.1); SODIUM 135 mmol/L (136-145)
[2019-09-08 14:41] LABS: BACTERIA,URINE MODERATE /HPF; EPITHELIAL CELLS,URINE FEW /LPF
[2019-09-08] MEDS ORDERED: DILTIAZEM HCL 5 MG/ML 5 ML VIAL IV STA (15:12)
[2019-09-08 15:14] LABS: ANISOCYTOSIS SLIGHT; HYPOCHROMASIA SLIGHT; LYMPHOCYTES % (MANUAL) 57 % (19-48); MONOCYTES % (MANUAL) 4 % (3.4-9.0); NEUTROPHILS % (MANUAL) 26 % (40-74)
[2019-09-08 15:15] LABS: PLATELET ESTIMATE ADEQUATE; PLATELET MORPHOLOGY COMMENT NORMAL; POIKILOCYTOSIS SLIGHT; RBC MORPHOLOGY COMMENT NORMAL
[2019-09-08] MEDS ORDERED: DILTIAZEM HCL VIAL 5 ML ONE (15:23)
[2019-09-08] MEDS: AZITHROMYCIN 500MG/NS 250 ML 250 ML IV SCH (15:26)
[2019-09-08 15:35] LABS: B-TYPE NATRIURETIC PEPTIDE2 454.3 pg/mL (0-100)
[2019-09-08] MEDS ORDERED: AMIODARONE HCL 360MG 200 ML IV SCH ×2 (16:00→18:00)
[2019-09-08] MEDS ORDERED: AMIODARONE HCL 150MG 100 ML IV SCH (16:00)
[2019-09-08] MEDS ORDERED: ONDANSETRON HCL INJ 2MG/ML 2ML 2 MG/ML VIAL IV PRN (16:15)
[2019-09-08] MEDS ORDERED: AMIODARONE 900MG 500 ML IV SCH ×2 (16:30→22:31)
[2019-09-08] MEDS ORDERED: DIGOXIN 0.25 MG TAB PO ONE (18:00)
[2019-09-08] MEDS ORDERED: DIGOXIN INJ 0.25 MG/ML 2 ML AMP IV ONE (18:00)
[2019-09-08] MEDS ORDERED: FUROSEMIDE INJ 10 MG/ML 4 ML VIAL IV ONE (18:00)
[2019-09-08] MEDS: IPRATROPIUM BROMIDE 0.02% 2.5 ML NEB NEB PRN (18:23)
[2019-09-08] MEDS: LEVALBUTEROL HCL SOLN NEBU 0.63 MG/3 ML NEB INH PRN (18:23)
[2019-09-08] MEDS: METOPROLOL TARTRATE 50 MG TAB PO SCH (18:33)
[2019-09-08] MEDS: FUROSEMIDE INJ 10 MG/ML 2 ML VIAL IV SCH (18:33)
[2019-09-08 21:31] LABS: CREATINE KINASE MB 1.7 ng/mL (0-5.0)
[2019-09-08 22:13] VITALS: BP 137/96
[2019-09-08 22:20] VITALS: BP 137/96
[2019-09-08] MEDS: METHYLPREDNISOLONE SOD SUCC 40 MG/ML VIAL 1ML IV SCH (22:31)
--- NOTE | 2019-09-08 22:43 | NUR ---
patient came from ER with stretcher, awake alert oriented, looks weak, lungs sounds wheezing, especially with exertions. able to move from stretcher to bed by himself , patient is on NC 3 liter, telemetry is showing afib, hr is on 80s. per Alie RN (ER) all consults has been called. vitals checked, no distress noted at this time, patient denied any discomfort, will continue to monitor.
[2019-09-09] VITALS (8 sets, daily range): BP systolic 123–153; BP diastolic 88–100
[2019-09-09] MEDS: METOPROLOL TARTRATE 50 MG TAB PO SCH ×4 (00:03→22:00)
--- NOTE | 2019-09-09 00:18 | Consultation ---
DATE OF CONSULTATION: 09/08/2019 Cardiac Consultation REASON FOR CONSULTATION: Atrial fibrillation, congestive heart failure. HISTORY OF PRESENT ILLNESS: This is a 79-year-old gentleman, who is known with multiple medical health problems including chronic atrial fibrillation, hypertension, and hypothyroidism. The patient also known to have prostate problem. He had his prostate surgery done successfully on April 01, [address] Long. It seems by reviewing his records, he was back in June 2019 with what it seems to be COPD exacerbation, severe bronchitis. Of note, his white blood cell counts were in the 20,000 range. The patient is treated. He had bronchoscopy and he was treated aggressively. He was in [place] after that. The patient dismissed home on medication. The patient continued to have weakness, shortness of breath, and he did not improve freely. He is on Xarelto. He is on beta-ness. He is on MUSA inhibitor and levothyroxine. For the last week or so, he is having severe shortness of breath with orthopnea, paroxysmal nocturnal dyspnea, and he is unable to breathe or to do any activity whatsoever. For that reason, the patient came to the emergency room. Urgent cardiac consultation is obtained. I visited with the patient, to whom his main problem is severe shortness of breath, orthopnea, paroxysmal nocturnal dyspnea, swelling of the lower extremities, cough, and he cannot breathe. He denied having any angina. He denied having any fever or any chills. REVIEW OF SYSTEMS: Will be summarized for clarity. GENERAL: Failure to thrive, weakness. No fever, no chills. Poor appetite. Weight loss. HEENT: Remarkable for occasional headache, lightheadedness, congestion. PULMONARY: Severe shortness of breath and cough and orthopnea. CARDIAC: Palpitation, orthopnea, lower extremity swelling, cough. GI: Poor appetite, weight loss. No hematemesis. No melena. HEMATOLOGY: Easy bruising, but no active bleeding. : Difficulty urination at times. MUSCULOSKELETAL: Back pain, knee pain, aches and pain. NEUROLOGICAL: No seizure activity. PSYCHIATRIC: The patient does not follow up and he is poorly compliant with followup. SOCIAL HISTORY: He is former smoker, quit in 2012. He is social alcohol drinker. He is retired. He is divorcee. HOME MEDICATIONS: Include metoprolol 50 mg a day, losartan 50 mg a day, amlodipine 5 mg a day, levothyroxine 137 mcg a day, Xarelto 20 mg a day. ALLERGIES: CODEINE. PAST MEDICAL HISTORY: 1. Chronic atrial fibrillation. 2. Hypertension. 3. Hypothyroidism. 4. Prostate, status post prostate surgery in March. 5. 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 6. Low back surgery. 7. Removal of cyst from his left knee. 8. Prolonged admission to this institution in June to early July and subsequently to [place] with exacerbation of chronic obstructive pulmonary disease and possible pneumonitis. 9. 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 FAMILY HISTORY: Mother of stroke at age 83. Father at age 85 after hip surgery. He lost one of his two brothers with lung disease. No sister. One son with lupus. PHYSICAL EXAMINATION: VITAL SIGNS: Height of 6 feet 1 inch, weight is 150 pounds. Blood pressure is 150/100, heart rate of 130 per minute, irregularly irregular of atrial fibrillation, respiratory rate of 24 per minute, temperature of 98.4 Fahrenheit. HEENT: Pupils are reactive. NECK: Elevation of jugular venous pulsation is noted. Irregularly irregular rate is noted. CHEST: Crackles and rales. HEART: Irregularly irregular rate with tachycardia. S1, S2. ABDOMEN: Soft. No organomegaly. EXTREMITIES: Mild peripheral edema. NEUROLOGIC: Awake, alert, and oriented. No motor deficits. LABORATORY DATA: White blood cell count of 22.9, hemoglobin 12.3, hematocrit 39%, and platelet count of 175,000. Differentiation showed lymphocyte at 62%. BUN 21, creatinine of 1.02. Sodium of 135, potassium of 4.5. BNP of 454. INR of 2.4. Chest x-ray showing definitely cardiomegaly with bilateral pleural effusion and pulmonary edema. IMPRESSION: 1. Atrial fibrillation with fast ventricular response. 2. Pulmonary edema and volume overload. 3. History of chronic obstructive pulmonary disease. 4. Chronic atrial fibrillation. 5. Hypertension. 6. Hypothyroidism. 7. Status post transurethral resection of the prostate. 8. Prolonged admission with pneumonitis and bronchoscopy during that admission. Please refer to Dr. Alvarenga's note during that admission. 9. Chronic lymphocytic leukemia as evident by chronic elevation of white blood cell count and elevation of lymphocyte count. 10. Debility. RECOMMENDATION: Cardiac martin, my recommendation will be as follows: Increasing beta-ness dosage to and controlling the heart rate, gentle diuresis, adjusting blood pressure medication. We will check an echocardiogram and we will follow the patient's progression with you. Further steps to be done as deemed necessarily. MD JOE Vazquez/MODL /[id number]
--- NOTE | 2019-09-09 00:53 | Consultation ---
DATE OF CONSULTATION: 09/08/2019 PATIENT LOCATION: ER bed 11. REASON FOR CONSULTATION: Respiratory failure. CONSULTING PHYSICIAN: Dr. Reyes of the Emergency Department. HISTORY OF PRESENT ILLNESS: The patient is a 79-year-old white man with multiple medical problems including chronic hypoxemic respiratory failure, pulmonary fibrosis, emphysema, chronic atrial fibrillation, who presented here to the emergency department with shortness of breath for the last 5 days or so. This has been progressive. His oxygen did not help. He has had cough of yellow sputum. He denies fevers or chills. He has had some chest pain from coughing. He denies any swelling, nausea, vomiting, diarrhea, or constipation. He has had several prolonged hospitalizations in the past with urinary tract infections, pneumonias, etc. At arrival, he was found to be in atrial fibrillation with rapid ventricular response here. He has been started on an amiodarone drip. PAST MEDICAL HISTORY: Atrial fibrillation, COPD, pulmonary fibrosis described as UIP, hypertension, BPH. He denies any history of coronary artery disease. SOCIAL HISTORY: He smoked a pack and a half a day to about 7 years ago. He drinks alcohol occasionally. 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 He does have exposure to asbestos as well. FAMILY HISTORY: Noncontributory. ALLERGIES: DRUG ALLERGIES, CODEINE. PHYSICAL EXAMINATION: VITAL SIGNS: Heart rate is currently in the low 100s. It has been as high as 132. Blood pressure is 140/80, saturation is 99% with nasal cannula oxygen in place. HEENT: His head is normocephalic, atraumatic. Pupils are round and reactive. There is moderate arcus senilis. Mucous membranes are moist. NECK: Supple. Trachea is midline. CHEST: Expiratory wheezes and Velcro rales. HEART: Tachycardic, irregularly irregular rhythm. No obvious murmurs. ABDOMEN: Soft, nontender, nondistended. EXTREMITIES: No cyanosis. He does have some mild clubbing. He has some mild pedal edema. SKIN: Warm and dry without rash. He does have a what feels like a lipoma in his central upper back. 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 LABORATORY DATA: He has a white count of 22,000. [place] [address] [place] he presented. He has 61% lymphocytes with 39% neutrophils. Hemoglobin and hematocrit are 12 and 39 with 175,000 platelets. INR 2.37. Chemistry, sodium 135, potassium 4.5, chloride 98, CO2 of 26, BUN and creatinine are 21 and 1.02. Glucose 132, lactate was 1.1. Troponins 0.7. BNP is 454. Albumin is 3.8. Urinalysis has moderate bacteria. No white blood cells and a few epithelial cells. EKG shows atrial fibrillation with rapid ventricular response. ASSESSMENT: 1. Acute on chronic hypoxemic respiratory failure. 2. Pulmonary fibrosis. 3. Atrial fibrillation with rapid ventricular response. 4. Pulmonary edema, I am unable to exclude pneumonia on his baseline abnormal chest x-ray. 5. Emphysema. 6. Possible chronic lymphocytic leukemia. 7. BPH. RECOMMENDATIONS AND PLAN: Continue antibiotics for now with Rocephin and azithromycin. He did have a bronchoscopy with negative cultures in the past. We will get a sputum culture. Continue rate control and gentle diuretics. We will put him on nebulized bronchodilators and he has been seen by Dr. Jd Alvarenga in the past. I will discuss the case with him and likely transition care since he is known to the patient. MD CAROLINE Cota/MODL /[id number]
[2019-09-09 06:10] LABS: CREATINE KINASE MB 1.3 ng/mL (0-5.0)
[2019-09-09] MEDS: METHYLPREDNISOLONE SOD SUCC 40 MG/ML VIAL 1ML IV SCH ×2 (06:11→14:34)
[2019-09-09] MEDS: FUROSEMIDE INJ 10 MG/ML 2 ML VIAL IV SCH ×2 (06:12→16:32)
[2019-09-09 06:25] LABS: ALANINE AMINOTRANSFERASE 22 IU/L (0-55); ALBUMIN 3.4 g/dL (3.5-5.0); ALBUMIN/GLOBULIN RATIO 1.7 (0.8-2.0); ALKALINE PHOSPHATASE 54 IU/L (40-150); ANION GAP 12.6 mmol/L (8-16); BLOOD UREA NITROGEN 19 mg/dL (7-26); BUN/CREATININE RATIO 22 (6-25); CALCIUM 8.4 mg/dL (8.4-10.2); CARBON DIOXIDE 30 mmol/L (22-29); CHLORIDE 97 mmol/L (98-107); CHOL/HDL RATIO 3.5 (3.9-4.7); CHOLESTEROL 139 MD/DL (0-199); CREATININE, SERUM 0.87 mg/dL (0.72-1.25); EST GLOMERULAR FILTRATION RATE > 60 ML/MIN (60-); GLUCOSE 148 mg/dL (74-118); HDL CHOLESTEROL 40 MG/DL (40-60); LDL CHOLESTEROL 92 MG/DL (60-130); POTASSIUM 4.6 mmol/L (3.5-5.1); SODIUM 135 mmol/L (136-145); TRIGLYCERIDES 37 MG/DL (0-149)
[2019-09-09 06:48] LABS: HEMATOCRIT 35.8 % (38.2-49.6); HEMOGLOBIN 11.2 g/dL (14.0-18.0); MEAN CORPUSCULAR HEMOGLOBIN 26.7 pg (28-32); MEAN CORPUSCULAR HGB CONC 31.3 g/dL (31-35); MEAN CORPUSCULAR VOLUME 85.4 fL (81-99); PLATELET COUNT 156 x10e3/uL (140-360); RED BLOOD COUNT 4.19 x10e6/uL (4.3-5.7); RED CELL DISTRIBUTION WIDTH 16.4 % (11.7-14.4)
--- NOTE | 2019-09-09 07:07 | Diagnostic Imaging Report ---
EXAMINATION: CHEST 2 VIEWS INDICATION: Follow-up possible pneumonia. COMPARISON: 09/08/2019. FINDINGS: TUBES and LINES: None. LUNGS: Patchy density in the right lower lobe has mildly increase since the prior exam. Diffuse coarsening of the pulmonary interstitium with bronchial thickening again observed. There is mild prominence of the central pulmonary vasculature, consistent with pulmonary venous congestion. PLEURA: Small right pleural effusion. No pneumothorax. HEART AND MEDIASTINUM: The cardiomediastinal silhouette is unremarkable. BONES AND SOFT TISSUES: No acute osseous lesion. Soft tissues are unremarkable. UPPER ABDOMEN: No free air under the diaphragm. IMPRESSION: Findings suggestive of right lower lobe pneumonia superimposed on chronic interstitial changes. Small volume parapneumonic pleural effusion. Signed by: Dr. Stevie Godfrey M.D. on 09/09/2019 7:04 AM
[2019-09-09 07:50] LABS: LYMPHOCYTES % (MANUAL) 61 % (19-48); MONOCYTES % (MANUAL) 4 % (3.4-9.0); NEUTROPHILS % (MANUAL) 35 % (40-74)
[2019-09-09] MEDS ORDERED: SODIUM CHLORIDE 0.9% 250ML 250 ML ONE (08:06)
[2019-09-09] MEDS: LOSARTAN POTASSIUM 100 MG TAB PO SCH ×2 (08:24→16:27)
[2019-09-09] MEDS: CEFTRIAXONE SOD 1 GM/NS 50 ML 50 ML IV SCH (08:24)
[2019-09-09] MEDS: DIGOXIN 0.125 MG TAB PO SCH (08:25)
[2019-09-09] MEDS: AZITHROMYCIN 500MG/NS 250 ML 250 ML IV SCH (09:09)
[2019-09-09] MEDS ORDERED: APIXAB 2.5 MG TABLET ONE (14:11)
[2019-09-09] MEDS: APIXABAN 5 MG TABLET PO SCH (16:27)
[2019-09-09] MEDS: LEVALBUTEROL HCL SOLN NEBU 0.63 MG/3 ML NEB INH PRN (16:30)
[2019-09-09] MEDS: IPRATROPIUM BROMIDE 0.02% 2.5 ML NEB NEB PRN (16:30)
--- NOTE | 2019-09-09 20:37 | NUR ---
Pulmonary Medicine DATE 09/09/2019 SUBJECTIVE: patient well known to me from clinic he recently deferred pfts and CT chest surveillance, feeling as if he was ready to accept any issue that arose. REVIEW OF SYSTEMS: no bleeding, no rash PHYSICAL EXAMINATION: VITAL SIGNS: vital signs noted and reviewed per the chart record. GENERAL: NAD, alert, calm. HEENT: Normocephalic and atraumatic. NECK: Supple. Throat midline. LUNGS: Bilateral air entry moderate/decreased, few rales CARDIOVASCULAR: S1 and S2. No murmurs, rubs, or gallops. ABDOMEN: Soft, nontender. EXTREMITIES: No clubbing, no cyanosis, no edema. INTEGUMENT: No rash. No purpura. LABORATORY DATA: k 4.6 , hco3 30, cr 0.87. wbc 14. hct 35, plt 156. inr 2.37 yesterday IMPRESSION AND PLAN: 0. Afib with RVR 1. respiratory distress, respiratory failure acute 2. possible community-acquired pneumonia 3. possible COPD with exacerbation --chronic smoker, quit 6 years ago. 4. underlying pulmonary fibrosis, workup previously deferred 5. 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 6. Hypertension, hypothyroidism, prostate problem. 7. 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 decrease bronchodilators check sputum cx Encourage expectoration DVT ppx Thank you very much, Dr. Wood and Dr. Denney, for allowing me a chance to participate in care of Mr. Estrada. Please call for questions.
[2019-09-10] VITALS (8 sets, daily range): BP systolic 97–157; BP diastolic 60–94
[2019-09-10 05:19] LABS: INR 1.26; PARTIAL THROMBOPLASTIN TIME 29.9 seconds (23.8-35.5); PROTHROMBIN TIME 16.6 seconds (11.9-14.5)
[2019-09-10] MEDS: METOPROLOL TARTRATE 50 MG TAB PO SCH ×4 (05:51→21:50)
--- NOTE | 2019-09-10 05:51 | Diagnostic Imaging Report ---
EXAMINATION: CHEST SINGLE (PORTABLE) INDICATION: CHF. Pneumonia. COMPARISON: 09/09/2019. FINDINGS: TUBES and LINES: None. LUNGS: There has been interval increase in density in the lower right hemithorax suggesting worsening pneumonia and/or increasing pleural effusion. Diffuse coarsening of the pulmonary interstitium with bronchial thickening again observed. There is mild prominence of the central pulmonary vasculature, consistent with pulmonary venous congestion. PLEURA: Small right pleural effusion likely increased in volume. No pneumothorax. HEART AND MEDIASTINUM: The cardiomediastinal silhouette is unremarkable. BONES AND SOFT TISSUES: No acute osseous lesion. UPPER ABDOMEN: No free air under the diaphragm. IMPRESSION: Interval increase in density in the lower right hemithorax suggesting worsening pneumonia and/or increasing pleural effusion. Signed by: Dr. Stevie Godfrey M.D. on 09/10/2019 5:48 AM
[2019-09-10 05:57] LABS: FREE THYROXINE INDEX 2.7962 (1.4-3.8); THYROID STIMULATING HORMONE 0.682 uIU/mL (0.350-4.940)
[2019-09-10 05:59] LABS: ANION GAP 13.1 mmol/L (8-16); BLOOD UREA NITROGEN 23 mg/dL (7-26); BUN/CREATININE RATIO 27 (6-25); CALCIUM 8.4 mg/dL (8.4-10.2); CARBON DIOXIDE 30 mmol/L (22-29); CHLORIDE 98 mmol/L (98-107); CREATININE, SERUM 0.86 mg/dL (0.72-1.25); EST GLOMERULAR FILTRATION RATE > 60 ML/MIN (60-); GLUCOSE 133 mg/dL (74-118); POTASSIUM 4.1 mmol/L (3.5-5.1); SODIUM 137 mmol/L (136-145)
[2019-09-10] MEDS: FUROSEMIDE INJ 10 MG/ML 2 ML VIAL IV SCH ×2 (06:06→17:02)
[2019-09-10 06:30] LABS: BASOPHILS % 0.1 % (0.0-1.0); HEMATOCRIT 33.8 % (38.2-49.6); LYMPHOCYTES # (AUTO) 7.7 (1.0-3.2); LYMPHOCYTES % 40.3 % (18.0-39.1); MEAN CORPUSCULAR HEMOGLOBIN 27.2 pg (28-32); MEAN CORPUSCULAR HGB CONC 32.5 g/dL (31-35); MEAN CORPUSCULAR VOLUME 83.7 fL (81-99); MONOCYTES # (AUTO) 1.1 (0.2-0.8); MONOCYTES % 5.8 % (4.4-11.3); NEUTROPHILS # (AUTO) 10.2 (2.1-6.9); PLATELET COUNT 163 x10e3/uL (140-360); RED BLOOD COUNT 4.04 x10e6/uL (4.3-5.7); RED CELL DISTRIBUTION WIDTH 16.4 % (11.7-14.4)
[2019-09-10 07:18] LABS: LYMPHOCYTES % (MANUAL) 31 % (19-48); MONOCYTES % (MANUAL) 5 % (3.4-9.0); NEUTROPHILS % (MANUAL) 64 % (40-74)
[2019-09-10 07:19] LABS: ANISOCYTOSIS SLIGHT; PLATELET ESTIMATE ADEQUATE; PLATELET MORPHOLOGY COMMENT NORMAL; RBC MORPHOLOGY COMMENT NORMAL
[2019-09-10] MEDS: PREDNISONE 20 MG TAB PO SCH (08:14)
[2019-09-10] MEDS: LOSARTAN POTASSIUM 100 MG TAB PO SCH ×2 (08:14→16:36)
[2019-09-10] MEDS: CEFTRIAXONE SOD 1 GM/NS 50 ML 50 ML IV SCH (08:14)
[2019-09-10] MEDS: APIXABAN 5 MG TABLET PO SCH ×2 (08:14→16:36)
[2019-09-10] MEDS: AZITHROMYCIN 500MG/NS 250 ML 250 ML IV SCH (08:14)
[2019-09-10] MEDS: DIGOXIN 0.125 MG TAB PO SCH (08:14)
--- NOTE | 2019-09-10 11:20 | NUR ---
Pulmonary Medicine DATE 09/10/2019 SUBJECTIVE: 3 L/min oxygen 100% saturation off IV drips now PO cardiac meds eating REVIEW OF SYSTEMS: no bleeding, no rash PHYSICAL EXAMINATION: VITAL SIGNS: vital signs noted and reviewed per the chart record. GENERAL: NAD, alert, calm. HEENT: Normocephalic and atraumatic. NECK: Supple. Throat midline. LUNGS: Bilateral air entry moderate/decreased, few rales CARDIOVASCULAR: S1 and S2. No murmurs, rubs, or gallops. ABDOMEN: Soft, nontender. EXTREMITIES: No clubbing, no cyanosis, no edema. INTEGUMENT: No rash. No purpura. LABORATORY DATA: k 4.1, hco3 30, cr 0.86. 19 wbc, hct 33, plt 163. inr 1.26 IMPRESSION AND PLAN: 0. Afib with RVR, now rate controlled 1. respiratory distress, respiratory failure acute/chronic. resolved acute component. 2. possible community-acquired pneumonia 3. possible COPD with exacerbation --chronic smoker, quit 6 years ago. 4. underlying pulmonary fibrosis, workup previously deferred 5. 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 6. Hypertension, hypothyroidism, prostate problem. 7. 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 bronchodilators check sputum cx Encourage expectoration DVT ppx hematology evaluation of immune status, considering IVIG soon Thank you very much, Dr. Wood and Dr. Denney, for allowing me a chance to participate in care of Mr. Estrada. Please call for questions.
[2019-09-10] MEDS ORDERED: IPRATROPIU0.2 MG/1 M NEB (11:23)
--- NOTE | 2019-09-10 13:30 | NUR ---
consult called to Dr. Ward, awaiting return call
[2019-09-10] MEDS: LEVALBUTEROL HCL SOLN NEBU 0.63 MG/3 ML NEB INH PRN (16:30)
[2019-09-10] MEDS: IPRATROPIUM BROMIDE 0.02% 2.5 ML NEB NEB PRN (16:30)
--- NOTE | 2019-09-10 19:36 | Consultation ---
DATE OF CONSULTATION: 09/09/[address] Trace Wood. HISTORY OF PRESENT ILLNESS: Mr. Estrada is a 79-year-old male, who was well known to me from before. The patient has stopped seeing me. He claims that I made the "wrong diagnosis." HISTORY OF PAST ILLNESS: History of CLL, history of SLL. SOCIAL HISTORY: History of smoking in the past. FAMILY HISTORY: Noncontributory. MEDICATIONS: At this time consist of: 1. Levalbuterol. 2. Ceftriaxone. 3. Zithromax. 4. Amiodarone. 5. Ondansetron. 6. Metoprolol. 7. Losartan. 8. Lasix. 9. Digoxin. 10. Methylprednisolone. FAMILY HISTORY: Noncontributory. ALLERGIES: REPORTED CODEINE. REVIEW OF SYSTEMS: HEENT: Normal. CARDIAC: History of atrial fibrillation. History of congestive heart failure. RESPIRATORY: History of pulmonary interstitial fibrosis. GI: Normal. : Normal. MUSCULOSKELETAL: Normal. SKIN AND BREASTS: Normal PHYSICAL EXAMINATION: GENERAL: A rather thin built male, no palpable adenopathy. HEART: Tachycardic. LUNGS: Show coarse crepitations. ABDOMEN: Soft. RECTAL: Deferred. CENTRAL NERVOUS SYSTEM: Essentially normal. EXTREMITIES: Essentially normal. LABORATORY DATA: Lab investigations of interest show a hemoglobin of 12.3, hematocrit 39.2[place] [address]. Platelets are reported at 175, down was then 57 lymphocytes, 4 monocytes, 13 reactive lymphocytes, 26 neutrophils. The hemoglobin dropped to 11.0 after hydration, which makes him fairly anemic by all criteria. Sodium 137, potassium 4.1, chloride is 98, CO2 of 30. The patient's total protein is very low at 5.4, albumin 3.4, globulin is 2.0. Imaging shows the patient's chest x-ray of congestive heart failure, bilateral atelectasis, right-sided pleural effusion. This was done on 09/09. The patient had right lower lobe bronchopneumonia, chronic interstitial fibrosis. IMPRESSION: 1. chronic lymphocytic leukemia, small lymphocytic lymphoma stage IV. 2. Bronchopneumonia. 3. Chronic interstitial fibrosis. 4. Hypoproteinemia. 5. Hypoalbuminemia. 6. 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 7. Hypertension. 8. History of congestive heart failure. 9. History of atrial fibrillation. 10. History of similar complaints approximately 2 weeks back, for which he claims he was hospitalized. PLAN, COMMENTS, AND SUGGESTIONS: 1. Aggressive antibiotic therapy. Culture has quantitative immunoglobulins. He is confirmed to have common variable immune-deficiency syndrome, give IVIG as he will never be able to get rid of the pneumonia because of being in an immunocompromised state. 2. On day #1, I discussed with him that this is a stage IV chronic lymphatic leukemia and small-cell lymphoma because of anemia. I have discussed country risk classification as well as the classification of Dr. Falcon. Today, I saw him again along with the nurse and he claimed: 1. We will call you in consultation. I explained Dr. Trace Wood. 2. The 2nd point he made was "you made a wrong diagnosis. That is why, we had a fall out.". 3. I explained to him he has chronic lymphatic leukemia. He has small-cell lymphoma. This is a stage IV disease because of anemia. 4. I also explained to him that I will step down as he is questioning my diagnosis that there are much smarter hematologists/oncologists than I am, that a consult with a much smarter continuous mining machine coal miner could be obtained. I stepped down because of the abusive nature of this patient as he questions my diagnosis. Thank you very much for allowing me to participate in the management of this patient. Sunshine Devlin MD MAQ/MODL /[id number] cc: MD Jd Vazquez MD
[2019-09-11] VITALS (8 sets, daily range): BP systolic 113–145; BP diastolic 77–91
[2019-09-11] MEDS: FUROSEMIDE INJ 10 MG/ML 2 ML VIAL IV SCH ×2 (06:11→17:17)
[2019-09-11] MEDS: METOPROLOL TARTRATE 50 MG TAB PO SCH ×4 (06:11→21:55)
[2019-09-11] MEDS: AZITHROMYCIN 500MG/NS 250 ML 250 ML IV SCH (09:08)
[2019-09-11] MEDS: CEFTRIAXONE SOD 1 GM/NS 50 ML 50 ML IV SCH (09:08)
[2019-09-11] MEDS: APIXABAN 5 MG TABLET PO SCH ×2 (09:08→17:17)
[2019-09-11] MEDS: LOSARTAN POTASSIUM 100 MG TAB PO SCH ×2 (09:09→17:18)
[2019-09-11] MEDS: PREDNISONE 20 MG TAB PO SCH (09:09)
[2019-09-11] MEDS: DIGOXIN 0.125 MG TAB PO SCH (09:09)
[2019-09-11] MEDS: LEVALBUTEROL HCL SOLN NEBU 0.63 MG/3 ML NEB INH PRN ×2 (12:14→19:50)
--- NOTE | 2019-09-11 13:08 | NUR ---
Pulmonary Medicine DATE 09/11/2019 SUBJECTIVE: 3 L/min oxygen 95% saturation CXR with right pneumonitis eats REVIEW OF SYSTEMS: no bleeding, no rash PHYSICAL EXAMINATION: VITAL SIGNS: vital signs noted and reviewed per the chart record. GENERAL: NAD, alert, calm. HEENT: Normocephalic and atraumatic. NECK: Supple. Throat midline. LUNGS: Bilateral air entry moderate/decreased, few rales CARDIOVASCULAR: S1 and S2. No murmurs, rubs, or gallops. ABDOMEN: Soft, nontender. EXTREMITIES: No clubbing, no cyanosis, no edema. INTEGUMENT: No rash. No purpura. LABORATORY DATA: no new updates RADIOLOGY: CXR RLL PNEUMONIA evolving IMPRESSION AND PLAN: 0. Afib with RVR, now rate controlled 1. respiratory distress, respiratory failure acute/chronic. resolved acute component. 2. pneumonia, rx for resistent/hospital acquired orgs 3. possible COPD with exacerbation --chronic smoker, quit 6 years ago. 4. underlying pulmonary fibrosis, workup previously deferred 5. 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 6. Hypertension, hypothyroidism, prostate problem. 7. 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 bronchodilators optimally get a sputum cx Encourage expectoration DVT ppx hematology evaluation of immune status, considering IVIG soon patient often deferring treatments/interventions/diagnostics Thank you very much, Dr. Wood and Dr. Denney, for allowing me a chance to participate in care of Mr. Estrada. Please call for questions.
[2019-09-11] MEDS ORDERED: [UNRECOGNIZED DRUG - OTHER] IV ONE (13:15)
[2019-09-11] MEDS ORDERED: MAGNESIUM HYDROXIDE 30 ML UDC PO PRN (13:15)
[2019-09-11] MEDS ORDERED: [UNRECOGNIZED DRUG - OTHER] IV ONE (13:30)
--- NOTE | 2019-09-11 14:17 | Diagnostic Imaging Report ---
Examination: Single AP view of the chest. COMPARISON: Multiple prior studies. INDICATION: Dyspnea DISCUSSION: Lines/tubes: None. Lungs: Lung base fibrosis.. Pleura: Small effusions. Heart and mediastinum: Cardiomegaly. Bones and soft tissues: No acute bony abnormalities. IMPRESSION: Cardiomegaly with lung base fibrosis Signed by: Dr. Bassam Baker M.D. on 09/11/2019 2:14 PM
[2019-09-11] MEDS: CEFEPIME 1GM/NS 0.9% 50 ML 50 ML IV SCH (14:54)
[2019-09-11] MEDS: DOCUSATE SODIUM 100 MG CAP PO SCH (17:17)
--- NOTE | 2019-09-11 17:20 | Consultation ---
DATE OF CONSULTATION: 09/11/2019 ADDENDUM: Mr. Estrada is a 79-year-old male, who had accused me yesterday that I had made the wrong diagnosis. He went back to my records at the hospital. The patient was diagnosed as his chronic lymphatic leukemia in 2009. The last time I saw him was on 06/28/2015. The patient also had noticed that he had a compression fracture of T12, L1, L2 for which he underwent kyphoplasty. The patient still had persistent lumbar pain subsequent in notes at my office show that the patient had called on 07/17/2015. The patient was hospitalized at [facility] with a severe leukemoid reaction. However, I had explained that this was because of chronic lymphatic leukemia. The patient said he was going to dispute the charges because "I did not ask him to see me in the office." I tried to explain to the patient, Dr. Devlin reviewed the chart daily and has seen the patient, every day, and the patient still said that he did not ask to be seen by Dr. Devlin and does not think he should be responsible for the charges, so the patient was advised that we would send copies of Dr. Devlin's note for the dates of service which were billed. It has to be noted that I have confirmed by the lab that he has common variable immune deficiency syndrome, although three immunoglobulins are low even though I have step-down. I have asked doctor, who was then consulted to please consider IVIG treatment as he would of bronchopneumonia since he has common variable immune deficiency syndrome and also bronchopneumonia. I also explained to the cardiac cath lab technologist oncologist, who has taken my place, Dr. Jones to look for an aggressive lymphoma as chronic lymphatic leukemia and SLL can transform to an aggressive lymphoma, which is a large cell lymphoma which we call Bruce syndrome. Even though I have step-down, I do consider my duty to inform the physician who was taking care of him what I had found and what I was consulted for. Thank you very much for allowing me to participate in the management of this very difficult patient. I had put the records of my last notes of the patient dated 06/28/2015 in his medical records at this institution. MD AC Sandoval/TAYLORL /[id number] cc: Trace Wood MD
[2019-09-11] MEDS: IPRATROPIUM BROMIDE 0.02% 2.5 ML NEB NEB PRN (19:50)
[2019-09-12] VITALS (11 sets, daily range): BP systolic 116–159; BP diastolic 78–116
[2019-09-12] MEDS: CEFEPIME 1GM/NS 0.9% 50 ML 50 ML IV SCH ×2 (03:16→13:02)
[2019-09-12] MEDS: METOPROLOL TARTRATE 50 MG TAB PO SCH ×2 (06:00→20:27)
[2019-09-12] MEDS: FUROSEMIDE INJ 10 MG/ML 2 ML VIAL IV SCH (06:25)
[2019-09-12] MEDS: AZITHROMYCIN 500MG/NS 250 ML 250 ML IV SCH (08:04)
[2019-09-12] MEDS: LOSARTAN POTASSIUM 100 MG TAB PO SCH ×2 (08:04→17:04)
[2019-09-12] MEDS: DOCUSATE SODIUM 100 MG CAP PO SCH ×2 (08:04→17:04)
[2019-09-12] MEDS: DIGOXIN 0.125 MG TAB PO SCH (08:04)
[2019-09-12] MEDS: APIXABAN 5 MG TABLET PO SCH ×2 (08:04→17:05)
[2019-09-12] MEDS: PREDNISONE 20 MG TAB PO SCH (08:04)
--- NOTE | 2019-09-12 08:08 | NUR ---
patient reports that he has been having dizzy spells that started last night while just sitting in bed
--- NOTE | 2019-09-12 12:28 | NUR ---
Pulmonary Medicine DATE 09/12/2019 SUBJECTIVE: 3 L/min oxygen 98% saturation CXR with right pneumonitis much better some dizziness in bed and when walking REVIEW OF SYSTEMS: no bleeding, no rash PHYSICAL EXAMINATION: VITAL SIGNS: vital signs noted and reviewed per the chart record. GENERAL: NAD, alert, calm. HEENT: Normocephalic and atraumatic. NECK: Supple. Throat midline. LUNGS: Bilateral air entry moderate/decreased, few rales CARDIOVASCULAR: S1 and S2. No murmurs, rubs, or gallops. ABDOMEN: Soft, nontender. EXTREMITIES: No clubbing, no cyanosis, no edema. INTEGUMENT: No rash. No purpura. LABORATORY DATA: no new updates IMPRESSION AND PLAN: 0. Afib with RVR, now rate controlled 1. respiratory distress, respiratory failure acute/chronic. resolved acute component. 2. pneumonia, rx for resistent/hospital acquired orgs 3. possible COPD with exacerbation --chronic smoker, quit 6 years ago. 4. underlying pulmonary fibrosis, workup previously deferred 5. 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 6. Hypertension, hypothyroidism, prostate problem. 7. 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 bronchodilators optimally get a sputum cx Encourage expectoration DVT ppx hematology evaluation of immune status, considering IVIG soon patient often deferring treatments/interventions/diagnostics Thank you very much, Dr. Wood and Dr. Denney, for allowing me a chance to participate in care of Mr. Estrada. Please call for questions.
[2019-09-12] MEDS ORDERED: ACETAMIN/BUTALBITAL/CAFFEINE TAB PO PRN (13:00)
--- NOTE | 2019-09-12 15:07 | NUR ---
PENDING SPUTUM CULTURE ORDER. PATIENT UNABLE TO COUGH UP ANY SPUTUM
[2019-09-12] MEDS: FUROSEMIDE 40 MG TAB PO SCH (17:05)
--- NOTE | 2019-09-12 17:56 | NUR ---
patient complaints of headache. Dr. Jelena Wood ordered Fioricet but no relief from headache.
[2019-09-13 00:26] VITALS: BP 133/88
[2019-09-13] MEDS: CEFEPIME 1GM/NS 0.9% 50 ML 50 ML IV SCH (02:02)
[2019-09-13] MEDS ORDERED: IBUPROFEN 100 MG/5 ML SUSP PO PRN (04:15)
[2019-09-13 04:17] VITALS: BP 123/90
[2019-09-13] MEDS: FUROSEMIDE 40 MG TAB PO SCH (04:17)
[2019-09-13] MEDS ORDERED: LEVOTHYROXINE SODIUM 112 MCG TAB PO SCH (06:00)
[2019-09-13] MEDS ORDERED: LEVOTHYROXINE SODIUM 25 MCG TABLET PO SCH (06:00)
[2019-09-13 06:32] LABS: BASOPHILS % 0.1 % (0.0-1.0); EOSINOPHILS # (AUTO) 0.1 (0.0-0.4); EOSINOPHILS % 0.4 % (0.0-6.0); HEMATOCRIT 40.4 % (38.2-49.6); HEMOGLOBIN 12.6 g/dL (14.0-18.0); LYMPHOCYTES # (AUTO) 17.8 (1.0-3.2); LYMPHOCYTES % 69.3 % (18.0-39.1); MEAN CORPUSCULAR HGB CONC 31.2 g/dL (31-35); MEAN CORPUSCULAR VOLUME 86.7 fL (81-99); NEUTROPHILS # (AUTO) 6.6 (2.1-6.9); NEUTROPHILS % 25.7 % (38.7-80.0); PLATELET COUNT 162 x10e3/uL (140-360); RED BLOOD COUNT 4.66 x10e6/uL (4.3-5.7); RED CELL DISTRIBUTION WIDTH 15.9 % (11.7-14.4)
[2019-09-13 06:44] LABS: ALANINE AMINOTRANSFERASE 16 IU/L (0-55); ALBUMIN 3.2 g/dL (3.5-5.0); ALBUMIN/GLOBULIN RATIO 1.2 (0.8-2.0); ALKALINE PHOSPHATASE 46 IU/L (40-150); ANION GAP 10.9 mmol/L (8-16); BLOOD UREA NITROGEN 20 mg/dL (7-26); BUN/CREATININE RATIO 26 (6-25); CALCIUM 8.4 mg/dL (8.4-10.2); CARBON DIOXIDE 34 mmol/L (22-29); CHLORIDE 95 mmol/L (98-107); CREATININE, SERUM 0.78 mg/dL (0.72-1.25); EST GLOMERULAR FILTRATION RATE > 60 ML/MIN (60-); GLUCOSE 97 mg/dL (74-118); POTASSIUM 3.9 mmol/L (3.5-5.1); SODIUM 136 mmol/L (136-145)
[2019-09-13 08:25] VITALS: BP 94/73
[2019-09-13 08:29] VITALS: BP 94/73
[2019-09-13 08:39] LABS: ANISOCYTOSIS SLIGHT; LYMPHOCYTES % (MANUAL) 59 % (19-48); MONOCYTES % (MANUAL) 2 % (3.4-9.0); NEUTROPHILS % (MANUAL) 32 % (40-74); PLATELET ESTIMATE ADEQUATE; PLATELET MORPHOLOGY COMMENT NORMAL; RBC MORPHOLOGY COMMENT NORMAL
[2019-09-13] MEDS: METOPROLOL TARTRATE 50 MG TAB PO SCH (09:00)
[2019-09-13] MEDS: AZITHROMYCIN 500MG/NS 250 ML 250 ML IV SCH (09:12)
[2019-09-13] MEDS: PREDNISONE 20 MG TAB PO SCH (09:12)
[2019-09-13] MEDS: DOCUSATE SODIUM 100 MG CAP PO SCH (09:12)
[2019-09-13] MEDS: APIXABAN 5 MG TABLET PO SCH (09:12)
[2019-09-13] MEDS: LOSARTAN POTASSIUM 100 MG TAB PO SCH (09:17)
--- NOTE | 2019-09-13 10:46 | NUR ---
Called Dr. Dunbar with hematology group, made aware patient's has orders to discharge by Dr. Berta Wood, and has also been cleared by cardiology to be discharged home with Eliquis 5mg PO BID, received orders from Dr. Dunbar to hold the discharge until he sees patient shortly.
--- NOTE | 2019-09-13 11:43 | NUR ---
Dr. Dunbar CEMENT FINISHER APPRENTICE Chantelleismael in to see patient received orders ok to discharge home with Eliquis 5mg BID and patient is to follow up in office in a week.
[2019-09-13 11:54] VITALS: BP 110/74
--- NOTE | 2019-09-13 12:00 | NUR ---
Made Dr. Luis Monteiro, aware patient's inpatients orders for losartan is 50mg PO and that no script was written, received orders to instruct patient to cut 100mg pill in 1/2 and take 50mg.
[2019-09-13] MEDS ORDERED: ACETAMINOPHEN 325 MG TAB PO PRN (12:30)
--- NOTE | 2019-09-13 12:44 | NUR ---
DISCHARGED HOME TODAY IMM EXPLAINED TO PT, SIGNED BY PT AND PLACED IN CHART COPY OF IMM TO PT IN CARE TRANSITIONS FOLDER
[2019-09-13 13:00] VITALS: BP 109/79
--- NOTE | 2019-09-13 13:35 | NUR ---
Patient discharged home verbalized understanding of discharge instructions.
--- NOTE | 2019-09-13 14:14 | Consultation ---
DATE OF CONSULTATION: 09/12/2019 REQUESTING PHYSICIAN: Dr. Wood. CONSULTING PHYSICIAN: Dr. Padmini Dunbar, Hematology-Oncology Service. REASON FOR CONSULTATION: Evaluation and management of patient with known history of chronic lymphocytic leukemia admitted due to shortness of breath and diagnosed with pneumonia. HISTORY OF PRESENTING ILLNESS: Mr. Estrada is a very pleasant 79-year-old gentleman with multiple medical problems including known history of COPD, pulmonary fibrosis, hypertension, chronic atrial fibrillation, and history of chronic lymphocytic leukemia for which he was diagnosed approximately 10 years ago, and has been followed with Oncology in the outpatient setting without any treatment. Diagnosis of leukemia is by history, however, no flow cytometry or bone marrow biopsy results available. Now, he is presented to the Emergency Department due to progressive shortness of breath along with cough and low-grade fever. In the ER, he was noted to be in atrial fibrillation with rapid ventricular response, subsequently started on amiodarone. Due to known history of leukemia and low immunoglobulin levels, Hematology-Oncology has been consulted to assist with the management. Presently, the patient is lying comfortably, not in acute distress, still having shortness of breath. He states that he was diagnosed with some kind of blood disorder, but does not clearly recall if it was leukemia. At some point, he was also informed that he might have non-Hodgkin lymphoma. PAST MEDICAL HISTORY: 1. Reported history of chronic lymphocytic leukemia/small lymphocytic lymphoma. 2. COPD/emphysema. 3. Atrial fibrillation. 4. Chronic interstitial fibrosis. 5. 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 6. Hypertension. 7. History of congestive heart failure. 8. Prostatic hypertrophy. SOCIAL HISTORY: He smokes a pack and a half per day for last seven years. He occasionally drinks alcohol. Denies illicit drug use. 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 FAMILY HISTORY: Noncontributory. ALLERGIES: TO IODINE. CURRENT MEDICATIONS: Reviewed as per electronic medical record. REVIEW OF SYSTEMS: A 14-point review of systems negative, except as mentioned per history of presenting illness. PHYSICAL EXAMINATION: VITAL SIGNS: Reviewed as per electronic medical record. HEENT: PERRLA. Extraocular movements intact. Head is atraumatic and normocephalic. NECK: Supple. CV: S1 and S2 audible. RESPIRATORY: Decreased bilateral air entry. ABDOMEN: Soft. Positive bowel sounds. EXTREMITIES: Negative edema. NEURO: The patient is alert and awake. LABORATORY DATA: White blood cell count of 19.2, hemoglobin 11.2, hematocrit 33.8, platelet 163, BUN 23, and creatinine 0.8. ASSESSMENT AND PLAN: Mr. Estrada is a very pleasant 79-year-old gentleman with complicated past medical history including known history of chronic obstructive pulmonary disease/emphysema, chronic respiratory failure secondary to pulmonary fibrosis, chronic atrial fibrillation, and reported history of chronic lymphocytic leukemia/small lymphocytic lymphoma, now presents to the Emergency Department due to progressive shortness of breath and diagnosed with pneumonia. He has been admitted to inpatient floor and started on IV antibiotics. He was also noted to be in atrial fibrillation with rapid ventricular response, started on amiodarone drip. Now, Hematology-Oncology has been consulted to assist with the management, specifically due to history of chronic lymphocytic leukemia and possible immunodeficiency. I reviewed the record at full length with the patient about his current disease and importance of further workup. At this point, focus would be to treat underlying pneumonia. Reportedly, he does have chronic lymphocytic leukemia and now with mild anemia may not need any treatment though it need to be conformed by flow cytometry of bone marrow aspiration biopsy that can be done in the outpatient setting. He also has hypogammaglobulinemia with low IgG level. With history of recurrent pneumonia and low hemoglobin, it has been recommended to give him a dose of IVIG. He can be worked up for common variable immune deficiency and we will get a repeat count in next few weeks. The patient does have anemia, but it is not significant, so we will closely monitor without any other hematologic intervention. Above plan has been discussed with the primary attending. Thank you for the consult. I will continue to be available. Please call with questions. Padmini Dunbar MD IJ/MODL /[id number]
--- NOTE | 2019-09-13 22:06 | NUR ---
Pulmonary Medicine DATE 09/13/2019 SUBJECTIVE: 2 L/min oxygen no resp distress eating ok REVIEW OF SYSTEMS: no bleeding, no rash PHYSICAL EXAMINATION: VITAL SIGNS: vital signs noted and reviewed per the chart record. GENERAL: NAD, alert, calm. HEENT: Normocephalic and atraumatic. NECK: Supple. Throat midline. LUNGS: Bilateral air entry moderate/decreased, few rales CARDIOVASCULAR: S1 and S2. No murmurs, rubs, or gallops. ABDOMEN: Soft, nontender. EXTREMITIES: No clubbing, no cyanosis, no edema. INTEGUMENT: No rash. No purpura. LABORATORY DATA: no new updates IMPRESSION AND PLAN: 0. Afib with RVR, now rate controlled 1. respiratory distress, respiratory failure acute/chronic. resolved acute component. 2. pneumonia, rx for resistent/hospital acquired orgs 3. possible COPD with exacerbation --chronic smoker, quit 6 years ago. 4. underlying pulmonary fibrosis, workup previously deferred 5. 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 6. Hypertension, hypothyroidism, prostate problem. 7. 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 bronchodilators optimally get a sputum cx - still couldnt get Encourage expectoration DVT ppx hematology evaluation of immune status, considering IVIG soon patient often deferring treatments/interventions/diagnostics stop outpatient duonebs. rx written for ipratropium nebs Thank you very much, Dr. Wood and Dr. Denney, for allowing me a chance to participate in care of Mr. Estrada. Please call for questions.
--- NOTE | 2019-10-14 04:55 | Discharge Summary ---
CHIEF COMPLAINT: One week history of increasing shortness of breath with chest congestion. FINAL DIAGNOSES: Chronic obstructive pulmonary disease, chronic lymphocytic leukemia, atrial fibrillation. DISPOSITION: Home. HOSPITAL COURSE: A 79-year-old male with known history of COPD, chronic lymphocytic leukemia, hypertension, hypothyroidism, coronary artery disease, brought to the ER with a 1 week history of increasing shortness of breath with chest congestion, frequent cough, nonproductive. No fever or chills. No other complaints other than dyspnea upon exertion. No palpitations. Review and evaluation were conducted in the ER. Findings were showing evidence of atrial fibrillation with rapid ventricular response. Began amiodarone drip. Admitted to facility for treatment regarding increased shortness of breath, congestion, exacerbation of COPD, chronic lymphocytic leukemia, coronary artery disease, questionable congestive heart failure. The patient will start nebulizer treatments. We will be requesting a Cardiology followup. Home medications will be continuing. With admission, Cardiac was requested regarding the findings of atrial fibrillation along with congestive heart failure. During the evaluation in the ER, the patient was evaluated by Dr. Monteiro and following his evaluation of the patient, his impression was atrial fibrillation with a fast ventricular response, pulmonary edema and volume overload, history of chronic obstructive pulmonary disease, chronic atrial fibrillation, hypertension, hypothyroidism, status post transurethral resection of prostate, chronic lymphocytic leukemia as evident by chronic elevation of white blood cell count with elevation in the lymphocyte count, and debility. Also being seen by Dr. Vargas regarding respiratory failure. Following his review of the patient, assessment was made of [id number] hypoxemic respiratory failure, pulmonary fibrosis, atrial fibrillation with rapid ventricular response, pulmonary edema. Unable to exclude pneumonia on his baseline abnormal chest x-ray. Emphysema, possible chronic lymphocytic leukemia, BPH. Currently, the patient is receiving Rocephin and azithromycin. Agree with antibiotics. Continue rate control and gentle diuretics. We will place on nebulized bronchodilators. He was then being seen by Dr. Devlin from Hematology standpoint regarding the concern for CLL. With his review of the individual, examining lab data, impression was made of chronic lymphocytic leukemia, small lymphocytic lymphoma stage IV, bronchial pneumonia, history of similar complaints approximately 2 weeks ago, for which he claims he was hospitalized. Agree with aggressive antibiotic therapy. 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 We had words with the patient and Dr. Devlin stepped down because of the abusive nature of the patient as he was questioning his diagnosis. From the emergency room, the patient was placed on the Med-Surg floor. He was on a cardiac diet, was started on antibiotics, IV fluids, diuretics, nebulizer treatments. Lab studies were being carried out. He was continuing on the amiodarone drip for the atrial fibrillation. The patient was beginning to feel slightly better, responding well to the nebulizer treatments and the antibiotics. Managed by Cardiology as well for atrial fibrillation. Amiodarone was adjusted according. CBC was showing evidence not only of anemia, but of the CLL status of the patient. White cell count was noted to be elevated. He was started on PT and OT. His rate was becoming controlled with his medications. His beta-blockers were being slowly reduced. He did have some issues with headaches toward the end of his stay. This was addressed with Fideborahet. He reached his potential recovery. Discussions will be made for discharge planning to be discharged home, and the patient was able to be released in stable condition. IMAGING: Chest x-ray finding shows evidence suggestive of congestive heart failure with bibasilar atelectasis and small right pleural effusion. Further chest x-rays were performed on the , , and finally on the . Comparison was made with the other previous studies. Finding shows cardiomegaly with lung base fibrosis. Cultures of the blood were negative. LABORATORY STUDIES: CBC on the patient shows initial white cell count of 22,800, H and H were 12.3 and 39.2. Followup CBCs continued to reveal elevated white counts. The values were as low as 14,400, final study was 25,600. H and H dropped to 11.0 and 33.8, final study 12.6 and 40.4. Immunology studies were showing an IgG low at 584, IgA low at 52, IgM low at 14. Chemistries show initial electrolyte panel to be stable. Glucose is 132. First set of cardiac enzymes were normal. BNP was 454.3. Two more sets of cardiac enzymes were normal. Final electrolytes were normal. Final kidney functions were normal. Final glucose 97. As mentioned, the patient responded to care and was discharged home. No equipments or supplies were necessary. No drain or Zuniga was needed. Activity level as directed by myself along with Dr. Monteiro. The patient will continue on amlodipine besylate 5 mg daily, nebulizer treatments, ipratropium bromide 2.5 mL q.6 hours p.r.n. for shortness of breath, levothyroxine sodium 137 mcg daily, losartan potassium 50 mg p.o. daily, metoprolol succinate 50 mg p.o. daily. Dictated by JOSELUIS Mtz Trace Wood MD CC/MODL /[id number]
== END 2019-09-13 13:39 | disposition home or self-care (01) | DRG 177 ==
LOC: ER 13:38 → ERHOLD 16:11 → IMCU 22:04
DX: J69.0 Pneumonitis due to inhalation of food and vomit (principal); I50.23 Acute on chronic systolic (congestive) heart failure; J96.21 Acute and chronic respiratory failure with hypoxia; C91.10 Chronic lymphocytic leukemia of B-cell type not having achieved remission; D81.89 Other combined immunodeficiencies; I48.20 Chronic atrial fibrillation, unspecified; J43.9 Emphysema, unspecified; I11.0 Hypertensive heart disease with heart failure; M79.7 Fibromyalgia; N40.1 Benign prostatic hyperplasia with lower urinary tract symptoms; J84.10 Pulmonary fibrosis, unspecified; I25.10 Atherosclerotic heart disease of native coronary artery without angina pectoris; Z87.891 Personal history of nicotine dependence; E77.8 Other disorders of glycoprotein metabolism; E03.9 Hypothyroidism, unspecified
CPT/HCPCS: 36415; 71045; 71046; 80048; 80053; 80061; 81001; 82550; 82553; 82784; 83605; 83735; 83880; 84436; 84443; 84479; 84484; 85007; 85025; 85027; 85610; 85730; 87040; 93005; 93306; 94640; 99251; 99284; J0456; J0692; J0696; J1160; J1940; J2920; J2930; J7030; J7050; J7512

== ENCOUNTER 2019-11-12 13:19 | Emergency (ER) | payer MEDICARE, OTHER ==
[~2019-11-12] VITALS: Ht 185.4 cm; Wt 65.8 kg
[~2019-11-12 13:19] MED LIST changes: +IPRATROPIU0.2 MG/1 M NEB
[2019-11-12 13:45] VITALS: BP 124/85
== END 2019-11-12 13:54 | disposition home or self-care (01) ==
LOC: ER 13:40
DX: B37.2 Candidiasis of skin and nail (principal); I10 Essential (primary) hypertension; J44.9 Chronic obstructive pulmonary disease, unspecified; Z99.81 Dependence on supplemental oxygen; R32 Unspecified urinary incontinence
CPT/HCPCS: 99282

== ENCOUNTER 2020-10-28 11:53 | Inpatient (IN) | payer OTHER, MEDICARE ==
[~2020-10-28] VITALS: Ht 185.4 cm; Wt 65.8 kg
[2020-10-28] MEDS ORDERED: MORPHINE SULFATE INJ 2 MG/ML SYR IV STA (12:01)
[2020-10-28] MEDS ORDERED: ONDANSETRON HCL INJ 2MG/ML 2ML 2 MG/ML VIAL IV STA (12:01)
[2020-10-28] MEDS ORDERED: PANTOPRAZOLE 40 MG 10ML VIAL IV STA (12:01)
[2020-10-28] MEDS ORDERED: DILTIAZEM HCL 5 MG/ML 5 ML VIAL IV STA (12:16)
[2020-10-28 12:28] LABS: BASOPHILS # (AUTO) 0.1 (0.0-0.1); BASOPHILS % 0.3 % (0.0-1.0); EOSINOPHILS # (AUTO) 0.2 (0.0-0.4); EOSINOPHILS % 0.7 % (0.0-6.0); HEMATOCRIT 45.4 % (38.2-49.6); HEMOGLOBIN 15.1 g/dL (14.0-18.0); LYMPHOCYTES # (AUTO) 12.9 (1.0-3.2); LYMPHOCYTES % 49.4 % (18.0-39.1); MEAN CORPUSCULAR HEMOGLOBIN 30.8 pg (28-32); MEAN CORPUSCULAR HGB CONC 33.3 g/dL (31-35); MEAN CORPUSCULAR VOLUME 92.5 fL (81-99); MONOCYTES # (AUTO) 3.3 (0.2-0.8); MONOCYTES % 12.7 % (4.4-11.3); NEUTROPHILS # (AUTO) 9.4 (2.1-6.9); NEUTROPHILS % 36.1 % (38.7-80.0); PLATELET COUNT 136 x10e3/uL (140-360); RED BLOOD COUNT 4.91 x10e6/uL (4.3-5.7); RED CELL DISTRIBUTION WIDTH 14.1 % (11.7-14.4)
[2020-10-28] MEDS ORDERED: SODIUM CHLORIDE 0.9% 500ML 500 ML IV ONE (12:30)
[2020-10-28 12:31] LABS: INR 1.09; PROTHROMBIN TIME 14.8 seconds (11.9-14.5)
[2020-10-28 12:41] LABS: ALANINE AMINOTRANSFERASE 10 IU/L (0-55); ALBUMIN 4.3 g/dL (3.5-5.0); ALBUMIN/GLOBULIN RATIO 1.8 (0.8-2.0); ALKALINE PHOSPHATASE 56 IU/L (40-150); ANION GAP 17.8 mmol/L (8-16); BLOOD UREA NITROGEN 21 mg/dL (7-26); BUN/CREATININE RATIO 23 (6-25); CALCIUM 8.8 mg/dL (8.4-10.2); CARBON DIOXIDE 24 mmol/L (22-29); CHLORIDE 97 mmol/L (98-107); CREATINE KINASE 172 IU/L (30-200); EST GLOMERULAR FILTRATION RATE > 60 ML/MIN (60-); GLUCOSE 168 mg/dL (74-118); MAGNESIUM 1.9 MG/DL (1.3-2.1); POTASSIUM 3.8 mmol/L (3.5-5.1); SODIUM 135 mmol/L (136-145)
[2020-10-28 12:58] LABS: EOSINOPHILS % (MANUAL) 1 % (0-7); LYMPHOCYTES % (MANUAL) 48 % (19-48); MONOCYTES % (MANUAL) 12 % (3.4-9.0); NEUTROPHILS % (MANUAL) 39 % (40-74); PLATELET MORPHOLOGY COMMENT NORMAL
[2020-10-28 12:59] LABS: PLATELET ESTIMATE SLIGHTLY DECREASED; RBC MORPHOLOGY COMMENT ABNORMAL
[2020-10-28 13:01] LABS: THYROID STIMULATING HORMONE 24.687 uIU/mL (0.350-4.940)
[2020-10-28] MEDS ORDERED: DILTIAZEM HCL 30 MG TAB PO SCH (14:15)
[2020-10-28] MEDS ORDERED: DILTIAZEM HCL 60 MG TAB PO SCH (14:15)
[2020-10-28] MEDS: PIPERACILLIN/TAZOBAC 3.375 GM in SODIUM CHLORIDE 0.9% 50ML 50 ML IV SCH ×2 (14:37→20:45)
[2020-10-28 14:55] LABS: CLARITY,URINE HAZY (CLEAR); COLOR,URINE AMBER (YELLOW); KETONES,URINE TRACE (NEGATIVE); LEUKOCYTE ESTERASE ,URINE NEGATIVE (NEGATIVE); NITRITE,URINE NEGATIVE (NEGATIVE); PROTEIN,URINE DIPSTICK >=300 (NEGATIVE); URINE UROBILINOGEN 4 mg/dL (0.2 - 1)
[2020-10-28 14:56] LABS: AMORPHOUS SEDIMENT,URINE FEW (FEW); BACTERIA,URINE FEW /HPF; EPITHELIAL CELLS,URINE FEW /LPF; RBC,URINE 21-50 /HPF (0-5)
[2020-10-28 14:57] LABS: MUCUS,URINE FEW (RARE); YEAST,URINE FEW
[2020-10-28] MEDS ORDERED: ENOXAPARIN INJ 80 MG/0.8 ML SYR SC ONE (15:45)
[2020-10-28] MEDS ORDERED: HYDRALAZINE HCL 20 MG/ML VIAL IV PRN (16:15)
[2020-10-28] MEDS: DILTIAZEM HCL ER 90MG CAPSULE PO SCH (17:03)
[2020-10-28] MEDS ORDERED: PIPERACILLIN/TAZOBAC 3.375 GM VIAL ONE (19:33)
[2020-10-28] MEDS ORDERED: SODIUM CHLORIDE 0.9% 50ML 50 ML ONE (19:34)
[2020-10-28] MEDS ORDERED: SODIUM CHLORIDE 0.9% 1000ML 1,000 ML ONE (19:36)
[2020-10-28] MEDS: MORPHINE SULFATE INJ 2 MG/ML SYR IV PRN ×2 (19:41→23:45)
[2020-10-28] MEDS: ONDANSETRON HCL INJ 2MG/ML 2ML 2 MG/ML VIAL IV PRN ×2 (19:41→23:45)
[2020-10-28 20:00] VITALS: BP 157/115
[2020-10-28] MEDS: ENOXAPARIN SOD INJ 60 MG/0.6 ML SYR SC SCH (20:46)
[2020-10-28 21:49] VITALS: BP 157/115
[2020-10-28 21:57] VITALS: BP 157/115
[2020-10-29] VITALS (8 sets, daily range): BP systolic 101–145; BP diastolic 70–101
[2020-10-29] MEDS ORDERED: PIPERACILLIN/TAZOBAC 3.375 GM VIAL ONE ×4 (02:55→20:19)
[2020-10-29] MEDS ORDERED: SODIUM CHLORIDE 0.9% 50ML 50 ML ONE ×4 (02:56→20:20)
[2020-10-29] MEDS: PIPERACILLIN/TAZOBAC 3.375 GM in SODIUM CHLORIDE 0.9% 50ML 50 ML IV SCH ×4 (03:00→21:00)
[2020-10-29] MEDS: MORPHINE SULFATE INJ 2 MG/ML SYR IV PRN ×4 (03:46→20:40)
[2020-10-29] MEDS: ONDANSETRON HCL INJ 2MG/ML 2ML 2 MG/ML VIAL IV PRN ×2 (03:46→20:40)
[2020-10-29] MEDS: LEVOTHYROXINE SODIUM 25 MCG TABLET PO SCH (05:51)
[2020-10-29] MEDS: LEVOTHYROXINE SODIUM 112 MCG TAB PO SCH (05:51)
[2020-10-29 06:21] LABS: BASOPHILS # (AUTO) 0.1 (0.0-0.1); BASOPHILS % 0.2 % (0.0-1.0); EOSINOPHILS % 0.1 % (0.0-6.0); HEMATOCRIT 41.3 % (38.2-49.6); HEMOGLOBIN 13.8 g/dL (14.0-18.0); LYMPHOCYTES % 61.8 % (18.0-39.1); MEAN CORPUSCULAR HEMOGLOBIN 31.3 pg (28-32); MEAN CORPUSCULAR HGB CONC 33.4 g/dL (31-35); MEAN CORPUSCULAR VOLUME 93.7 fL (81-99); MONOCYTES # (AUTO) 2.9 (0.2-0.8); NEUTROPHILS # (AUTO) 6.2 (2.1-6.9); NEUTROPHILS % 25.5 % (38.7-80.0); PLATELET COUNT 111 x10e3/uL (140-360); RED BLOOD COUNT 4.41 x10e6/uL (4.3-5.7); RED CELL DISTRIBUTION WIDTH 14.1 % (11.7-14.4)
[2020-10-29 06:52] LABS: CREATINE KINASE MB 1.3 ng/mL (0-5.0)
[2020-10-29 07:01] LABS: ALANINE AMINOTRANSFERASE 9 IU/L (0-55); ALBUMIN 3.6 g/dL (3.5-5.0); ALBUMIN/GLOBULIN RATIO 1.6 (0.8-2.0); ALKALINE PHOSPHATASE 51 IU/L (40-150); BLOOD UREA NITROGEN 22 mg/dL (7-26); BUN/CREATININE RATIO 26 (6-25); CALCIUM 8.1 mg/dL (8.4-10.2); CARBON DIOXIDE 28 mmol/L (22-29); CHLORIDE 97 mmol/L (98-107); CREATININE, SERUM 0.85 mg/dL (0.72-1.25); EST GLOMERULAR FILTRATION RATE > 60 ML/MIN (60-); GLUCOSE 97 mg/dL (74-118); SODIUM 136 mmol/L (136-145)
[2020-10-29] MEDS: METOPROLOL SUCCINATE 50 MG TAB XL PO SCH (08:44)
[2020-10-29] MEDS: DILTIAZEM HCL ER 90MG CAPSULE PO SCH ×2 (08:44→16:14)
[2020-10-29] MEDS: ENOXAPARIN SOD INJ 60 MG/0.6 ML SYR SC SCH ×2 (08:44→21:00)
[2020-10-29] MEDS: LOSARTAN POTASSIUM 100 MG TAB PO SCH (08:44)
[2020-10-29] MEDS ORDERED: AMLODIPINE BESYLATE 5 MG TAB PO SCH (09:00)
[2020-10-29 12:57] LABS: EOSINOPHILS % (MANUAL) 1 % (0-7); LYMPHOCYTES % (MANUAL) 48 % (19-48); MONOCYTES % (MANUAL) 15 % (3.4-9.0); MYELOCYTES % (MANUAL) 1 % (0-0); NEUTROPHILS % (MANUAL) 35 % (40-74); PLATELET ESTIMATE SLIGHTLY DECREASED; RBC MORPHOLOGY COMMENT NORMAL
[2020-10-29 12:58] LABS: CREATINE KINASE MB 1.4 ng/mL (0-5.0)
[2020-10-29 12:58] LABS: PLATELET MORPHOLOGY COMMENT NORMAL
[2020-10-29] MEDS: CEPACOL SORE THROAT LOZENGES PO PRN ×2 (14:59→19:15)
[2020-10-29] MEDS: ACETAMINOPHEN 325 MG TAB PO PRN (19:14)
[2020-10-30] VITALS (10 sets, daily range): BP systolic 71–136; BP diastolic 56–97
[2020-10-30] MEDS: PIPERACILLIN/TAZOBAC 3.375 GM in SODIUM CHLORIDE 0.9% 50ML 50 ML IV SCH ×4 (03:00→21:33)
[2020-10-30] MEDS: MORPHINE SULFATE INJ 2 MG/ML SYR IV PRN ×2 (03:10→11:52)
[2020-10-30] MEDS: ONDANSETRON HCL INJ 2MG/ML 2ML 2 MG/ML VIAL IV PRN (03:10)
[2020-10-30] MEDS ORDERED: PIPERACILLIN/TAZOBAC 3.375 GM VIAL ONE ×4 (03:14→19:38)
[2020-10-30] MEDS ORDERED: SODIUM CHLORIDE 0.9% 50ML 50 ML ONE ×4 (03:14→19:39)
[2020-10-30 05:18] LABS: BASOPHILS # (AUTO) 0.1 (0.0-0.1); BASOPHILS % 0.4 % (0.0-1.0); EOSINOPHILS # (AUTO) 0.1 (0.0-0.4); EOSINOPHILS % 0.2 % (0.0-6.0); HEMATOCRIT 38.5 % (38.2-49.6); HEMOGLOBIN 12.6 g/dL (14.0-18.0); LYMPHOCYTES # (AUTO) 14.4 (1.0-3.2); LYMPHOCYTES % 63.3 % (18.0-39.1); MEAN CORPUSCULAR HGB CONC 32.7 g/dL (31-35); MEAN CORPUSCULAR VOLUME 94.8 fL (81-99); MONOCYTES # (AUTO) 2.7 (0.2-0.8); MONOCYTES % 11.8 % (4.4-11.3); NEUTROPHILS # (AUTO) 5.4 (2.1-6.9); NEUTROPHILS % 23.8 % (38.7-80.0); PLATELET COUNT 120 x10e3/uL (140-360); RED BLOOD COUNT 4.06 x10e6/uL (4.3-5.7); RED CELL DISTRIBUTION WIDTH 14.2 % (11.7-14.4)
[2020-10-30 05:35] LABS: ALANINE AMINOTRANSFERASE 8 IU/L (0-55); ALBUMIN 3.3 g/dL (3.5-5.0); ALBUMIN/GLOBULIN RATIO 1.6 (0.8-2.0); ALKALINE PHOSPHATASE 44 IU/L (40-150); ANION GAP 10.9 mmol/L (8-16); BLOOD UREA NITROGEN 30 mg/dL (7-26); BUN/CREATININE RATIO 35 (6-25); CALCIUM 8.2 mg/dL (8.4-10.2); CARBON DIOXIDE 29 mmol/L (22-29); CHLORIDE 97 mmol/L (98-107); CREATININE, SERUM 0.85 mg/dL (0.72-1.25); EST GLOMERULAR FILTRATION RATE > 60 ML/MIN (60-); GLUCOSE 103 mg/dL (74-118); POTASSIUM 3.9 mmol/L (3.5-5.1); SODIUM 133 mmol/L (136-145)
[2020-10-30] MEDS: LEVOTHYROXINE SODIUM 25 MCG TABLET PO SCH (05:59)
[2020-10-30] MEDS: LEVOTHYROXINE SODIUM 112 MCG TAB PO SCH (05:59)
[2020-10-30 08:16] LABS: LYMPHOCYTES % (MANUAL) 28 % (19-48); MONOCYTES % (MANUAL) 8 % (3.4-9.0); NEUTROPHILS % (MANUAL) 36 % (40-74); PLATELET ESTIMATE SLIGHTLY DECREASED; PLATELET MORPHOLOGY COMMENT NORMAL; RBC MORPHOLOGY COMMENT NORMAL
[2020-10-30] MEDS: DILTIAZEM HCL ER 90MG CAPSULE PO SCH ×2 (09:08→17:00)
[2020-10-30] MEDS: LOSARTAN POTASSIUM 100 MG TAB PO SCH (09:11)
[2020-10-30] MEDS: METOPROLOL SUCCINATE 50 MG TAB XL PO SCH (09:12)
[2020-10-30] MEDS: ENOXAPARIN SOD INJ 60 MG/0.6 ML SYR SC SCH ×2 (09:14→21:10)
[2020-10-30] MEDS ORDERED: CEFAZOLIN SOD 1 GM/NS 50ML 100 ML IV PRN (15:30)
[2020-10-30] MEDS ORDERED: MORPHINE SULFATE INJ 2 MG/ML SYR IV PRN (15:45)
[2020-10-30] MEDS ORDERED: SODIUM CHLORIDE 0.9% 1000ML 250 ML IV ONE (15:45)
[2020-10-30] MEDS: ACETAMINOPHEN 325 MG TAB PO PRN ×2 (16:08→23:54)
[2020-10-30] MEDS ORDERED: SODIUM CHLORIDE 0.9% 250ML 250 ML IV ONE (19:45)
[2020-10-30] MEDS: SODIUM CHLORIDE 0.9% 1000ML 1,000 ML IV SCH (23:53)
[2020-10-31] MEDS ORDERED: SODIUM CHLORIDE 0.9% 50ML 50 ML ONE ×2 (01:17→08:17)
[2020-10-31] MEDS ORDERED: PIPERACILLIN/TAZOBAC 3.375 GM VIAL ONE ×2 (01:17→08:16)
[2020-10-31] MEDS: PIPERACILLIN/TAZOBAC 3.375 GM in SODIUM CHLORIDE 0.9% 50ML 50 ML IV SCH ×4 (02:48→21:42)
[2020-10-31 03:48] VITALS: BP 127/88
[2020-10-31] MEDS: LEVOTHYROXINE SODIUM 25 MCG TABLET PO SCH (04:52)
[2020-10-31] MEDS: LEVOTHYROXINE SODIUM 112 MCG TAB PO SCH (04:52)
[2020-10-31] MEDS: METOPROLOL SUCCINATE 50 MG TAB XL PO SCH (08:25)
[2020-10-31] MEDS: ENOXAPARIN SOD INJ 60 MG/0.6 ML SYR SC SCH (08:25)
[2020-10-31] MEDS: DILTIAZEM HCL ER 90MG CAPSULE PO SCH ×2 (08:25→17:55)
[2020-10-31 09:19] VITALS: BP 133/91
[2020-10-31 09:38] VITALS: BP 133/91
[2020-10-31] MEDS ORDERED: ONDANSETRON HCL INJ 2MG/ML 2ML 2 MG/ML VIAL ONE (12:01)
[2020-10-31] MEDS ORDERED: PHENYLEPHRINE HCL 1% 10 MG/ML VIAL ONE (12:01)
[2020-10-31] MEDS ORDERED: VASOPRESSIN INJ 20 UNIT/ML VIAL ONE (12:01)
[2020-10-31] MEDS ORDERED: SEVOFLURANE INHAL SOLN 250 ML PEN BTL ONE (12:01)
[2020-10-31] MEDS ORDERED: SUCCINYLCHOLINE CHLORIDE 20 MG/ML 10ML VIAL ONE (12:01)
[2020-10-31] MEDS ORDERED: GLYCOPYRROLATE INJ 0.2 MG/ML VIAL ONE (12:01)
[2020-10-31] MEDS ORDERED: PROPOFOL IV EMULSION 10 MG/ML 20 ML VIAL ONE (12:01)
[2020-10-31] MEDS ORDERED: LIDOCAINE HCL 2% LOCAL INJ 5 ML SDV VIAL INJ ONE (12:01)
[2020-10-31] MEDS ORDERED: FENTANYL CITRATE/PF 100MCG/2 ML INJ ONE (12:12)
[2020-10-31] MEDS: SODIUM CHLORIDE 0.9% 1000ML 1,000 ML IV SCH ×3 (13:20→19:25)
[2020-10-31] MEDS ORDERED: NOREPINEPHRINE INJ 4MG/4ML 4 ML ONE (13:50)
[2020-10-31] MEDS ORDERED: ACETAMINOPHEN 1000 MG/100 ML 100 ML IV ONE (14:26)
[2020-10-31] MEDS ORDERED: NALOXONE HCL INJ 0.4 MG/ML AMP IV PRN (15:00)
[2020-10-31] MEDS ORDERED: HYDROMORPHONE 0.2MG/ML-SOD CHL 30ML PCA SYRINGE IV PRN (15:00)
[2020-10-31] MEDS ORDERED: ONDANSETRON HCL INJ 2MG/ML 2ML 2 MG/ML VIAL IV PRN (15:00)
[2020-10-31] MEDS ORDERED: HYDROMORPHONE 0.2MG/ML-SOD CHL 30ML PCA SYRINGE IV ONE (15:16)
[2020-10-31] MEDS ORDERED: ACETAMINOPHEN 1000 MG/100 ML IV PRN (16:00)
[2020-10-31 16:37] VITALS: BP 113/72
[2020-10-31 20:00] VITALS: BP 100/64
[2020-10-31 20:50] VITALS: BP_SYST 100; BP_SYST 123; BP_DIAS 51; BP_DIAS 64
[2020-10-31] MEDS: CEFAZOLIN SOD 1 GM/NS 50ML 50 ML IV SCH (21:09)
[2020-11-01] VITALS (8 sets, daily range): BP systolic 103–129; BP diastolic 69–91
[2020-11-01] MEDS: PIPERACILLIN/TAZOBAC 3.375 GM in SODIUM CHLORIDE 0.9% 50ML 50 ML IV SCH ×4 (03:30→21:09)
[2020-11-01] MEDS: SODIUM CHLORIDE 0.9% 1000ML 1,000 ML IV SCH ×3 (05:30→17:40)
[2020-11-01] MEDS: LEVOTHYROXINE SODIUM 112 MCG TAB PO SCH (05:30)
[2020-11-01] MEDS: LEVOTHYROXINE SODIUM 25 MCG TABLET PO SCH (05:30)
[2020-11-01] MEDS: CEFAZOLIN SOD 1 GM/NS 50ML 50 ML IV SCH ×2 (05:30→14:55)
[2020-11-01 05:43] LABS: HEMATOCRIT 38.9 % (38.2-49.6); HEMOGLOBIN 12.8 g/dL (14.0-18.0); MEAN CORPUSCULAR HEMOGLOBIN 31.3 pg (28-32); MEAN CORPUSCULAR HGB CONC 32.9 g/dL (31-35); MEAN CORPUSCULAR VOLUME 95.1 fL (81-99); PLATELET COUNT 128 x10e3/uL (140-360); RED BLOOD COUNT 4.09 x10e6/uL (4.3-5.7); RED CELL DISTRIBUTION WIDTH 14.2 % (11.7-14.4)
[2020-11-01 06:31] LABS: LYMPHOCYTES % (MANUAL) 33 % (19-48); METAMYELOCYTES % (MANUAL) 1 % (0-0); MONOCYTES % (MANUAL) 5 % (3.4-9.0); NEUTROPHILS % (MANUAL) 54 % (40-74); PROMYELOCYTES % (MANUAL) 1 % (0-0)
[2020-11-01 06:33] LABS: RBC MORPHOLOGY COMMENT NORMAL; SMUDGE CELLS MODERATE
[2020-11-01 06:34] LABS: PLATELET ESTIMATE SLIGHTLY DECREASED; PLATELET MORPHOLOGY COMMENT NORMAL
[2020-11-01] MEDS: DILTIAZEM HCL ER 90MG CAPSULE PO SCH ×2 (09:06→17:00)
[2020-11-01] MEDS: METOPROLOL SUCCINATE 50 MG TAB XL PO SCH (09:06)
[2020-11-01] MEDS: CEPACOL SORE THROAT LOZENGES PO PRN (12:43)
[2020-11-01] MEDS: IPRATROPIUM BROMIDE 0.02% 2.5 ML NEB NEB PRN (16:37)
[2020-11-01] MEDS: RIVAROXABAN 10 MG TABLET PO SCH (17:00)
[2020-11-02] VITALS (8 sets, daily range): BP systolic 96–136; BP diastolic 70–90
[2020-11-02] MEDS: PIPERACILLIN/TAZOBAC 3.375 GM in SODIUM CHLORIDE 0.9% 50ML 50 ML IV SCH ×4 (03:40→21:48)
[2020-11-02] MEDS: CEPACOL SORE THROAT LOZENGES PO PRN (03:55)
[2020-11-02] MEDS: LEVOTHYROXINE SODIUM 25 MCG TABLET PO SCH (05:21)
[2020-11-02] MEDS: LEVOTHYROXINE SODIUM 112 MCG TAB PO SCH (05:21)
[2020-11-02 05:53] LABS: HEMATOCRIT 34.3 % (38.2-49.6); HEMOGLOBIN 11.3 g/dL (14.0-18.0)
[2020-11-02] MEDS: IPRATROPIUM BROMIDE 0.02% 2.5 ML NEB NEB PRN ×2 (06:02→06:05)
[2020-11-02] MEDS: SODIUM CHLORIDE 0.9% 1000ML 1,000 ML IV SCH (07:00)
[2020-11-02] MEDS: METOPROLOL SUCCINATE 50 MG TAB XL PO SCH (09:00)
[2020-11-02] MEDS: DILTIAZEM HCL ER 90MG CAPSULE PO SCH ×2 (09:00→17:17)
[2020-11-02] MEDS: ALBUTEROL/IPRATROPIUM 3 ML NEB NEB PRN (10:33)
[2020-11-02] MEDS: RIVAROXABAN 10 MG TABLET PO SCH (17:17)
[2020-11-02] MEDS: TRAMADOL/APAP 37.5MG-325MG TAB PO PRN (22:09)
[2020-11-03] VITALS: BP 100/79
[2020-11-03] MEDS: SODIUM CHLORIDE 0.9% 1000ML 1,000 ML IV SCH (02:33)
[2020-11-03] MEDS: PIPERACILLIN/TAZOBAC 3.375 GM in SODIUM CHLORIDE 0.9% 50ML 50 ML IV SCH ×2 (03:00→09:00)
[2020-11-03 04:00] VITALS: BP 115/83
[2020-11-03 05:01] LABS: BASOPHILS # (AUTO) 0.1 (0.0-0.1); BASOPHILS % 0.3 % (0.0-1.0); EOSINOPHILS # (AUTO) 0.1 (0.0-0.4); EOSINOPHILS % 0.8 % (0.0-6.0); HEMATOCRIT 32.2 % (38.2-49.6); HEMOGLOBIN 10.6 g/dL (14.0-18.0); LYMPHOCYTES # (AUTO) 11.1 (1.0-3.2); MEAN CORPUSCULAR HEMOGLOBIN 31.3 pg (28-32); MEAN CORPUSCULAR HGB CONC 32.9 g/dL (31-35); MONOCYTES # (AUTO) 1.6 (0.2-0.8); MONOCYTES % 9.2 % (4.4-11.3); NEUTROPHILS # (AUTO) 4.1 (2.1-6.9); PLATELET COUNT 134 x10e3/uL (140-360); RED BLOOD COUNT 3.39 x10e6/uL (4.3-5.7); RED CELL DISTRIBUTION WIDTH 14.1 % (11.7-14.4)
[2020-11-03] MEDS: LEVOTHYROXINE SODIUM 25 MCG TABLET PO SCH (05:45)
[2020-11-03] MEDS: LEVOTHYROXINE SODIUM 112 MCG TAB PO SCH (05:45)
[2020-11-03] MEDS: ALBUTEROL/IPRATROPIUM 3 ML NEB NEB PRN (06:12)
[2020-11-03 07:30] LABS: EOSINOPHILS % (MANUAL) 4 % (0-7); LYMPHOCYTES % (MANUAL) 51 % (19-48); MONOCYTES % (MANUAL) 6 % (3.4-9.0); NEUTROPHILS % (MANUAL) 39 % (40-74)
[2020-11-03 07:31] LABS: PLATELET ESTIMATE SLIGHTLY DECREASED; PLATELET MORPHOLOGY COMMENT NORMAL; RBC MORPHOLOGY COMMENT NORMAL
[2020-11-03 08:07] VITALS: BP 125/94
[2020-11-03 08:51] VITALS: BP 125/94
[2020-11-03] MEDS: DILTIAZEM HCL ER 90MG CAPSULE PO SCH ×2 (09:00→16:49)
[2020-11-03] MEDS: METOPROLOL SUCCINATE 50 MG TAB XL PO SCH (09:00)
[2020-11-03] MEDS: TRAMADOL/APAP 37.5MG-325MG TAB PO PRN (11:04)
[2020-11-03 11:52] VITALS: BP 118/86
[2020-11-03] MEDS ORDERED: ONDANSETRON HCL 4 MG ORAL DISINTEGRATING TAB PO PRN (13:45)
[2020-11-03 15:50] VITALS: BP 92/72
[2020-11-03] MEDS: RIVAROXABAN 10 MG TABLET PO SCH (16:48)
== END 2020-11-03 17:00 | DRG 853 ==
LOC: ER 12:06 → ERHOLD 15:38 → MED/SURG2 17:41
PROC: 0QS734Z Reposition Left Upper Femur with Internal Fixation Device, Percutaneous Approach (ICD-10-PCS; principal; 2020-10-31 13:00)
DX: A41.9 Sepsis, unspecified organism (principal); S72.142A Displaced intertrochanteric fracture of left femur, initial encounter for closed fracture; I50.23 Acute on chronic systolic (congestive) heart failure; I48.20 Chronic atrial fibrillation, unspecified; N39.0 Urinary tract infection, site not specified; J44.9 Chronic obstructive pulmonary disease, unspecified; E03.9 Hypothyroidism, unspecified; W01.0XXA Fall on same level from slipping, tripping and stumbling without subsequent striking against object, initial encounter; Y93.89 Activity, other specified; Y92.012 Bathroom of single-family (private) house as the place of occurrence of the external cause; I11.0 Hypertensive heart disease with heart failure; I25.10 Atherosclerotic heart disease of native coronary artery without angina pectoris; N40.0 Benign prostatic hyperplasia without lower urinary tract symptoms; Z85.6 Personal history of leukemia; Z87.891 Personal history of nicotine dependence; Z88.5 Allergy status to narcotic agent; Z99.81 Dependence on supplemental oxygen; Z82.3 Family history of stroke; Z84.89 Family history of other specified conditions; D64.9 Anemia, unspecified; Z20.822 Contact with and (suspected) exposure to COVID-19
CPT/HCPCS: 36415; 70450; 71045; 72125; 72131; 76000; 80053; 81001; 82550; 82553; 82948; 83605; 83735; 83880; 84443; 84484; 85007; 85014; 85018; 85025; 85027; 85610; 85730; 86850; 86900; 87040; 87086; 93005; 93306; 94640; 96361; 96365; 97139; 99285; C1713; J0330; J0690; J1650; J2001; J2270; J2370; J2405; J2543; J3010; J7030; J7040; U0002

== ENCOUNTER 2021-06-10 12:37 | Inpatient (IN) | payer MEDICARE, OTHER ==
[~2021-06-10] VITALS: Ht 185.4 cm; Wt 68.0 kg
[2021-06-10] MEDS ORDERED: SODIUM CHLORIDE 0.9% 500ML 500 ML IV ONE ×2 (13:00→14:00)
[2021-06-10 13:25] LABS: INR 1.01; PROTHROMBIN TIME 14.1 seconds (11.9-14.5)
[2021-06-10 13:26] LABS: PARTIAL THROMBOPLASTIN TIME 26.6 seconds (23.8-35.5)
[2021-06-10 13:35] LABS: BASOPHILS # (AUTO) 0.1 (0.0-0.1); BASOPHILS % 0.4 % (0.0-1.0); EOSINOPHILS # (AUTO) 0.1 (0.0-0.4); EOSINOPHILS % 0.3 % (0.0-6.0); HEMATOCRIT 42.8 % (38.2-49.6); HEMOGLOBIN 14.1 g/dL (14.0-18.0); LYMPHOCYTES # (AUTO) 17.9 (1.0-3.2); LYMPHOCYTES % 65.7 % (18.0-39.1); MEAN CORPUSCULAR HEMOGLOBIN 30.2 pg (28-32); MEAN CORPUSCULAR HGB CONC 32.9 g/dL (31-35); MEAN CORPUSCULAR VOLUME 91.6 fL (81-99); MONOCYTES # (AUTO) 2.1 (0.2-0.8); MONOCYTES % 7.8 % (4.4-11.3); NEUTROPHILS # (AUTO) 6.9 (2.1-6.9); NEUTROPHILS % 25.3 % (38.7-80.0); PLATELET COUNT 149 x10e3/uL (140-360); RED BLOOD COUNT 4.67 x10e6/uL (4.3-5.7); RED CELL DISTRIBUTION WIDTH 15.5 % (11.7-14.4)
[2021-06-10 14:04] LABS: ALBUMIN 3.8 g/dL (3.5-5.0); ALBUMIN/GLOBULIN RATIO 1.4 (0.8-2.0); ANION GAP 16.6 mmol/L (8-16); CALCIUM 8.7 mg/dL (8.4-10.2); CREATININE, SERUM 0.87 mg/dL (0.72-1.25); POTASSIUM 3.6 mmol/L (3.5-5.1)
[2021-06-10 14:11] LABS: CREATINE KINASE MB 0.8 ng/mL (0-5.0)
[2021-06-10] MEDS: CEFTRIAXONE 1 GM in SODIUM CHLORIDE 0.9% 50ML 50 ML IV SCH ×2 (14:30→21:30)
[2021-06-10 14:37] LABS: CLARITY,URINE HAZY (CLEAR); COLOR,URINE YELLOW (YELLOW); KETONES,URINE NEGATIVE (NEGATIVE); LEUKOCYTE ESTERASE ,URINE NEGATIVE (NEGATIVE); NITRITE,URINE NEGATIVE (NEGATIVE); PROTEIN,URINE DIPSTICK 1+ (NEGATIVE)
[2021-06-10 14:40] LABS: BACTERIA,URINE FEW /HPF; EPITHELIAL CELLS,URINE FEW /LPF; RBC,URINE 21-50 /HPF (0-5)
[2021-06-10 15:14] LABS: EOSINOPHILS % (MANUAL) 1 % (0-7); LYMPHOCYTES % (MANUAL) 43 % (19-48); MONOCYTES % (MANUAL) 12 % (3.4-9.0); NEUTROPHILS % (MANUAL) 32 % (40-74)
[2021-06-10 15:15] LABS: PLATELET ESTIMATE ADEQUATE
[2021-06-10 15:16] LABS: PLATELET MORPHOLOGY COMMENT NORMAL
[2021-06-10] MEDS ORDERED: ONDANSETRON HCL INJ 2MG/ML 2ML 2 MG/ML VIAL IV PRN (16:30)
[2021-06-10] MEDS: METOPROLOL TARTRATE 25 MG TAB PO SCH (16:56)
[2021-06-10 18:01] VITALS: BP 147/103
[2021-06-10 18:03] VITALS: BP 183/113
[2021-06-10 20:00] VITALS: BP 146/100
[2021-06-10] MEDS ORDERED: SODIUM CHLORIDE 0.9% 250ML 250 ML ONE (20:20)
[2021-06-10 21:48] VITALS: BP 141/92
[2021-06-10 22:00] VITALS: BP 141/92
[2021-06-10 22:38] LABS: CREATINE KINASE MB 0.5 ng/mL (0-5.0)
[2021-06-11] VITALS (9 sets, daily range): BP systolic 92–145; BP diastolic 68–101
[2021-06-11] MEDS: METOPROLOL TARTRATE 25 MG TAB PO SCH ×2 (04:50→16:17)
[2021-06-11 05:50] LABS: BASOPHILS # (AUTO) 0.1 (0.0-0.1); BASOPHILS % 0.3 % (0.0-1.0); EOSINOPHILS # (AUTO) 0.2 (0.0-0.4); EOSINOPHILS % 0.6 % (0.0-6.0); HEMATOCRIT 36.1 % (38.2-49.6); LYMPHOCYTES # (AUTO) 19.4 (1.0-3.2); LYMPHOCYTES % 73.7 % (18.0-39.1); MEAN CORPUSCULAR HEMOGLOBIN 29.7 pg (28-32); MEAN CORPUSCULAR HGB CONC 31.6 g/dL (31-35); MONOCYTES # (AUTO) 2.6 (0.2-0.8); NEUTROPHILS % 15.1 % (38.7-80.0); PLATELET COUNT 133 x10e3/uL (140-360); RED BLOOD COUNT 3.84 x10e6/uL (4.3-5.7); RED CELL DISTRIBUTION WIDTH 15.4 % (11.7-14.4)
[2021-06-11 06:00] LABS: ALBUMIN 3.1 g/dL (3.5-5.0); ALBUMIN/GLOBULIN RATIO 1.5 (0.8-2.0); ANION GAP 11.8 mmol/L (8-16); CALCIUM 8.3 mg/dL (8.4-10.2); CREATININE, SERUM 0.75 mg/dL (0.72-1.25); POTASSIUM 3.8 mmol/L (3.5-5.1)
[2021-06-11 06:13] LABS: HEMOGLOBIN 11.4 g/dL (14.0-18.0)
[2021-06-11 06:40] LABS: CHOL/HDL RATIO 4.1 (3.9-4.7)
[2021-06-11 07:00] LABS: CREATINE KINASE MB 0.5 ng/mL (0-5.0)
[2021-06-11] MEDS: ASPIRIN 81 MG ENTERIC COATED PO SCH (08:30)
[2021-06-11] MEDS: CEFTRIAXONE 1 GM in SODIUM CHLORIDE 0.9% 50ML 50 ML IV SCH ×2 (08:30→20:20)
[2021-06-11] MEDS: Morphine 2mg Syringe 2 MG/ML SYR IV PRN ×3 (08:30→22:00)
[2021-06-11] MEDS: VALSARTAN 160 MG TAB PO SCH (08:30)
[2021-06-11 08:32] LABS: EOSINOPHILS % (MANUAL) 2 % (0-7); LYMPHOCYTES % (MANUAL) 69 % (19-48); MONOCYTES % (MANUAL) 3 % (3.4-9.0); NEUTROPHILS % (MANUAL) 26 % (40-74)
[2021-06-11] MEDS ORDERED: SODIUM CHLORIDE 0.9% 250ML 250 ML ONE (08:32)
[2021-06-11 08:34] LABS: PLATELET ESTIMATE SLIGHTLY DECREASED; PLATELET MORPHOLOGY COMMENT NORMAL; SMUDGE CELLS FEW
[2021-06-11 08:35] LABS: HYPOCHROMASIA SLIGHT; RBC MORPHOLOGY COMMENT NORMAL
[2021-06-11] MEDS: POLYETHYLENE GLYCOL 3350 17 GM PACK PO SCH ×2 (09:00→16:18)
[2021-06-11 09:17] LABS: FERRITIN 34.11 ng/mL (21.81-274.66)
[2021-06-11] MEDS: ALBUTEROL/IPRATROPIUM 3 ML NEB NEB PRN (10:40)
[2021-06-11 12:52] LABS: CREATINE KINASE MB 0.5 ng/mL (0-5.0)
[2021-06-12] VITALS (8 sets, daily range): BP systolic 112–136; BP diastolic 72–94
[2021-06-12] MEDS: METOPROLOL TARTRATE 25 MG TAB PO SCH ×2 (05:20→16:53)
[2021-06-12 06:08] LABS: ANION GAP 9.5 mmol/L (8-16); CREATININE, SERUM 0.78 mg/dL (0.72-1.25); POTASSIUM 4.5 mmol/L (3.5-5.1)
[2021-06-12 07:51] LABS: BASOPHILS # (AUTO) 0.1 (0.0-0.1); BASOPHILS % 0.2 % (0.0-1.0); EOSINOPHILS # (AUTO) 0.2 (0.0-0.4); EOSINOPHILS % 0.9 % (0.0-6.0); HEMATOCRIT 36.7 % (38.2-49.6); HEMOGLOBIN 11.7 g/dL (14.0-18.0); LYMPHOCYTES # (AUTO) 18.2 (1.0-3.2); LYMPHOCYTES % 71.8 % (18.0-39.1); MEAN CORPUSCULAR HGB CONC 31.9 g/dL (31-35); MEAN CORPUSCULAR VOLUME 94.1 fL (81-99); MONOCYTES # (AUTO) 2.4 (0.2-0.8); MONOCYTES % 9.4 % (4.4-11.3); NEUTROPHILS # (AUTO) 4.4 (2.1-6.9); NEUTROPHILS % 17.3 % (38.7-80.0); PLATELET COUNT 140 x10e3/uL (140-360); RED CELL DISTRIBUTION WIDTH 15.5 % (11.7-14.4)
[2021-06-12 09:00] LABS: EOSINOPHILS % (MANUAL) 1 % (0-7); LYMPHOCYTES % (MANUAL) 69 % (19-48); MONOCYTES % (MANUAL) 3 % (3.4-9.0); NEUTROPHILS % (MANUAL) 25 % (40-74)
[2021-06-12 09:01] LABS: HYPOCHROMASIA SLIGHT; PLATELET ESTIMATE ADEQUATE; PLATELET MORPHOLOGY COMMENT NORMAL; RBC MORPHOLOGY COMMENT NORMAL; SMUDGE CELLS MODERATE
[2021-06-12] MEDS: CEFTRIAXONE 1 GM in SODIUM CHLORIDE 0.9% 50ML 50 ML IV SCH ×2 (09:31→21:00)
[2021-06-12] MEDS: POLYETHYLENE GLYCOL 3350 17 GM PACK PO SCH ×2 (09:32→16:53)
[2021-06-12] MEDS: ASPIRIN 81 MG ENTERIC COATED PO SCH (09:32)
[2021-06-12] MEDS: VALSARTAN 160 MG TAB PO SCH (09:32)
[2021-06-12] MEDS ORDERED: ONDANSETRON HCL 4 MG ORAL DISINTEGRATING TAB PO PRN (09:45)
[2021-06-12] MEDS: ALBUTEROL/IPRATROPIUM 3 ML NEB NEB PRN ×2 (10:50→14:55)
[2021-06-12] MEDS: Morphine 2mg Syringe 2 MG/ML SYR IV PRN (11:10)
[2021-06-13] VITALS (8 sets, daily range): BP systolic 127–160; BP diastolic 75–100
[2021-06-13] MEDS: METOPROLOL TARTRATE 25 MG TAB PO SCH ×2 (04:51→17:45)
[2021-06-13 05:00] LABS: BASOPHILS # (AUTO) 0.1 (0.0-0.1); BASOPHILS % 0.3 % (0.0-1.0); EOSINOPHILS # (AUTO) 0.2 (0.0-0.4); EOSINOPHILS % 0.8 % (0.0-6.0); HEMATOCRIT 36.4 % (38.2-49.6); HEMOGLOBIN 11.8 g/dL (14.0-18.0); LYMPHOCYTES # (AUTO) 16.5 (1.0-3.2); MEAN CORPUSCULAR HEMOGLOBIN 30.3 pg (28-32); MEAN CORPUSCULAR HGB CONC 32.4 g/dL (31-35); MEAN CORPUSCULAR VOLUME 93.3 fL (81-99); MONOCYTES % 8.4 % (4.4-11.3); NEUTROPHILS # (AUTO) 4.4 (2.1-6.9); NEUTROPHILS % 19.2 % (38.7-80.0); PLATELET COUNT 136 x10e3/uL (140-360); RED CELL DISTRIBUTION WIDTH 15.2 % (11.7-14.4)
[2021-06-13] MEDS: ALBUTEROL/IPRATROPIUM 3 ML NEB NEB PRN ×2 (07:25→15:30)
[2021-06-13] MEDS: ASPIRIN 81 MG ENTERIC COATED PO SCH (08:53)
[2021-06-13] MEDS: LOSARTAN POTASSIUM 100 MG TAB PO SCH (08:53)
[2021-06-13] MEDS: POLYETHYLENE GLYCOL 3350 17 GM PACK PO SCH ×2 (08:55→17:40)
[2021-06-13] MEDS: VALSARTAN 160 MG TAB PO SCH (08:55)
[2021-06-13] MEDS: METOPROLOL SUCCINATE 50 MG TAB XL PO SCH (08:56)
[2021-06-13] MEDS: CYANOCOBALAMIN 1,000 MCG TAB PO SCH (08:57)
[2021-06-13] MEDS: LEVOTHYROXINE SODIUM 112 MCG TAB PO SCH (09:06)
[2021-06-13 09:11] LABS: LYMPHOCYTES % (MANUAL) 86 % (19-48); MONOCYTES % (MANUAL) 2 % (3.4-9.0); NEUTROPHILS % (MANUAL) 12 % (40-74); PLATELET ESTIMATE SLIGHTLY DECREASED; PLATELET MORPHOLOGY COMMENT NORMAL; RBC MORPHOLOGY COMMENT NORMAL
[2021-06-13] MEDS ORDERED: SODIUM CHLORIDE 0.9% 50ML 50 ML ONE (10:14)
[2021-06-13] MEDS ORDERED: IOPAMIDOL 370 MG/ML 200 ML INFUS..BTL INJ ONE (10:15)
[2021-06-13] MEDS: HYDROCODONE/APAP 5MG-325MG TAB PO PRN ×2 (10:24→20:47)
[2021-06-13] MEDS ORDERED: HYDRALAZINE HCL 20 MG/ML VIAL IV PRN (13:00)
[2021-06-14] VITALS: BP 121/82
[2021-06-14 04:00] VITALS: BP 131/89
[2021-06-14] MEDS: METOPROLOL TARTRATE 25 MG TAB PO SCH ×2 (05:51→15:41)
[2021-06-14] MEDS: LEVOTHYROXINE SODIUM 112 MCG TAB PO SCH (05:52)
[2021-06-14 05:53] LABS: BASOPHILS # (AUTO) 0.1 (0.0-0.1); BASOPHILS % 0.3 % (0.0-1.0); EOSINOPHILS # (AUTO) 0.2 (0.0-0.4); EOSINOPHILS % 0.8 % (0.0-6.0); HEMATOCRIT 36.8 % (38.2-49.6); HEMOGLOBIN 12.2 g/dL (14.0-18.0); LYMPHOCYTES # (AUTO) 15.4 (1.0-3.2); LYMPHOCYTES % 72.3 % (18.0-39.1); MEAN CORPUSCULAR HEMOGLOBIN 30.2 pg (28-32); MEAN CORPUSCULAR HGB CONC 33.2 g/dL (31-35); MEAN CORPUSCULAR VOLUME 91.1 fL (81-99); MONOCYTES # (AUTO) 1.5 (0.2-0.8); MONOCYTES % 6.9 % (4.4-11.3); NEUTROPHILS # (AUTO) 4.1 (2.1-6.9); NEUTROPHILS % 19.4 % (38.7-80.0); PLATELET COUNT 147 x10e3/uL (140-360); RED BLOOD COUNT 4.04 x10e6/uL (4.3-5.7); RED CELL DISTRIBUTION WIDTH 15.4 % (11.7-14.4)
[2021-06-14] MEDS ORDERED: LEVOTHYROXINE SODIUM 25 MCG TABLET PO SCH (06:00)
[2021-06-14 08:00] VITALS: BP 122/91
[2021-06-14] MEDS: ALBUTEROL/IPRATROPIUM 3 ML NEB NEB PRN (09:00)
[2021-06-14 09:12] LABS: EOSINOPHILS % (MANUAL) 1 % (0-7); LYMPHOCYTES % (MANUAL) 63 % (19-48); MONOCYTES % (MANUAL) 5 % (3.4-9.0); NEUTROPHILS % (MANUAL) 31 % (40-74); PLATELET ESTIMATE SLIGHTLY DECREASED; RBC MORPHOLOGY COMMENT NORMAL
[2021-06-14 09:13] LABS: PLATELET MORPHOLOGY COMMENT FEW GIANT
[2021-06-14] MEDS: CYANOCOBALAMIN 1,000 MCG TAB PO SCH (09:16)
[2021-06-14] MEDS: POLYETHYLENE GLYCOL 3350 17 GM PACK PO SCH (09:16)
[2021-06-14] MEDS: ASPIRIN 81 MG ENTERIC COATED PO SCH (09:16)
[2021-06-14] MEDS: LOSARTAN POTASSIUM 100 MG TAB PO SCH (09:16)
[2021-06-14] MEDS: VALSARTAN 160 MG TAB PO SCH (09:17)
[2021-06-14] MEDS: METOPROLOL SUCCINATE 50 MG TAB XL PO SCH (09:17)
[2021-06-14] MEDS: HYDROCODONE/APAP 5MG-325MG TAB PO PRN (09:20)
[2021-06-14 12:00] VITALS: BP 140/106
[2021-06-14] MEDS ORDERED: ASPIRIN EC81 MG PO (14:06)
[2021-06-14] MEDS ORDERED: VITAMIN B-121000 MCG PO (14:06)
[2021-06-14] MEDS ORDERED: HYDROCODON-ACE1 EAC9 PO (14:07)
[2021-06-14] MEDS ORDERED: INFLUENZA VIRUS VAC SPLIT INJ 0.5 ML SYR IM ONE (14:45)
[2021-06-14 16:00] VITALS: BP 123/86
== END 2021-06-14 17:08 | disposition home or self-care (01) | DRG 536 ==
LOC: ER 12:45 → ERHOLD 16:24 → MED/SURG3 17:35
PROVIDERS: ADMIT Internal Medicine; ATTEND Internal Medicine
DX: S32.512A Fracture of superior rim of left pubis, initial encounter for closed fracture (principal); C91.10 Chronic lymphocytic leukemia of B-cell type not having achieved remission; J96.11 Chronic respiratory failure with hypoxia; J44.9 Chronic obstructive pulmonary disease, unspecified; I10 Essential (primary) hypertension; I48.0 Paroxysmal atrial fibrillation; I25.10 Atherosclerotic heart disease of native coronary artery without angina pectoris; E03.9 Hypothyroidism, unspecified; Z87.891 Personal history of nicotine dependence; Z88.5 Allergy status to narcotic agent; R55 Syncope and collapse; D64.9 Anemia, unspecified; S32.511A Fracture of superior rim of right pubis, initial encounter for closed fracture
CPT/HCPCS: 36415; 70450; 71045; 71046; 72125; 80048; 80053; 80061; 81001; 82550; 82553; 82607; 82728; 82746; 83540; 83605; 83735; 83880; 84466; 84484; 85025; 85610; 85730; 87040; 87086; 88184; 88185; 88187; 93005; 93306; 93880; 94640; 94799; 97139; 99251; 99284; J0360; J0456; J0696; J2270; J7040; J7050; Q9967; U0002